=== PATIENT | female | born 1970 | race Caucasian/White ===

== ENCOUNTER → 2016-09-03 | Outpatient (CLI) | payer OTHER ==
[2015-05-18 14:25] VITALS: BP 140/92
--- NOTE | 2016-09-03 14:04 | CARD ---
APPROVED REPORT INDICATION Dyspnea Reason : Patient complained of pain PROCEDURE The patient underwent an Exercise Stress Test using the Stewart Protocol. Blood pressure, heart rate, a nd EKG were monitored. An Echocardiogram was performed by noc technician in four stages in quad fashion. At peak stress four se lected images were obtained and placed side by side with resting images for comparison. STRESS ECHO FINDINGS The resting Echocardiogram showed normal left ventricular contractility with an estimated Ejection Fr action of about 60 %. Normal augmentation of myocardial wall segments using a 16 segment model. Test Type: Exercise Stress Nurse/Tech: Paige Horton R.N. Test Indications: Palpitations Cardiac History and Allergies: SEE EMR Medications: SEE EMR Medical History: SEE EMR Resting ECG: SR Resting Heart Rate: 92 bpm Resting Blood Pressure: 134/93mmHg Pretest Chest Pain: No chest pain Nurse/Tech Notes S1S2, lungs CTA, denied chest pain or SOA. Consent: The procedure was explained to the patient in lay terms. Informed consent was witnessed. Sixto eout was entered into [employer]. History and Stress Test performed by Paige Horton R.N. Stress Symptoms SOA. POST EXERCISE Reason for Termination: Reached target heart rate Target HR: 145 Max HR: 169 bpm 99% of Maximum Predicted HR: 172 bpm Exercise duration: 5:31 min:sec, 2 Stage Exercise capacity: 7.0METs Max Blood Pressure: 184/88mmHg Blood Pressure response to exercise: Abnormal blood pressure response during stress.Normal blood pres sure response during stress. Heart Rate response to exercise: Normal Chest Pain: No. Arrhythmia: No. ST Change: No. INTERPRETATION Stress EKG Conclusion: No acute changes or PVC's noted. RESTING ECG Rhythm: Sinus Conduction: Normal Arrhythmias: None Repolarization: Normal STRESS ECG Rhythm: Sinus Tachycardia Conduction: Normal Stress EKG shows no significant changes. Preliminary Notification Critical Value: No <Conclusion> The left ventricle is normal in size and wall thickness in both the rest and stress images.
== END | disposition home or self-care (01) ==
LOC: ECHO 10:57
PROVIDERS: ATTEND Internal Medicine Cardiovascular Disease
DX: R00.2 Palpitations (principal); R06.00 Dyspnea, unspecified
CPT/HCPCS: 93017; 93350

== ENCOUNTER 2018-03-05 16:20 | Inpatient (IN) | payer BC, OTHER ==
[~2018-03-05] VITALS: Ht 165.1 cm; Wt 97.5 kg
[2018-03-05] MEDS ORDERED: ONDANSETRON PF 4 MG/2 ML VIAL. IV ONE (16:30)
[2018-03-05] MEDS ORDERED: MORPHINE SULFATE 4 MG/ML VIAL. IV ONE ×2 (16:30→17:15)
--- NOTE | 2018-03-05 16:42 | PHYS DOC ---
Past Medical History Past Medical History: Hypertension Past Surgical History: Appendectomy, Colectomy, Gastric Bypass, Hysterectomy Drug Use: None Adult General Chief Complaint Chief Complaint: UPPER EXTREMITY INJURY HPI HPI Patient is a 47 year old female whom presents to the ED complaining of right arm injury 4 hours ago. 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 Describes the pain as sharp. Rates the pain as 9 out of 10. Denies head/neck injury, LOC, vision changes, nausea/ vomiting, chest pain, shortness of breath, symptoms prior to fall or use of blood thinners. Review of Systems Review of Systems Constitutional: Denies fever or chills [] Eyes: Denies change in visual acuity, redness, or eye pain [] HENT: Denies nasal congestion or sore throat [] Respiratory: Denies cough or shortness of breath [] Cardiovascular: No additional information not addressed in HPI [] GI: Denies abdominal pain, nausea, vomiting, bloody stools or diarrhea [] : Denies dysuria or hematuria [] Musculoskeletal: Complains of right upper arm pain. Denies back pain. Joint pain [] Integument: Denies rash or skin lesions [] Neurologic: Denies headache, focal weakness or sensory changes [] All other systems were reviewed and found to be within normal limits, except as documented in this note. Current Medications Current Medications Current Medications Medications (Trade) Dose Ordered Sig/[facility] Start Time Stop Time Status Last Admin Dose Admin Morphine Sulfate (Morphine Sulfate) 4 mg 1X ONCE 03/05/18 17:15 03/05/18 17:16 DC 03/05/18 17:15 4 MG Ondansetron HCl (Zofran) 4 mg 1X ONCE 03/05/18 16:30 03/05/18 16:31 DC 03/05/18 16:49 4 MG Allergies Allergies Allergies Coded Allergies Type Severity Reaction Last Updated Verified bee venom protein (honey bee) Allergy Intermediate 03/05/18 No lisinopril Allergy Intermediate 05/18/15 Yes meperidine Allergy Intermediate 05/18/15 Yes Physical Exam Physical Exam Constitutional: Well developed, well nourished, no acute distress, non-toxic appearance. [] HENT: Normocephalic, atraumatic Neck: Normal range of motion, no tenderness, supple, no stridor. [] Cardiovascular:Heart rate regular rhythm, no murmur [] Lungs & Thorax: Bilateral breath sounds clear to auscultation [] Abdomen: Bowel sounds normal, soft, no tenderness, no masses, no pulsatile masses. [] Skin: Warm, dry, no erythema, no rash. [] Back: No tenderness, no CVA tenderness. [] Extremities: mild right proximal humerus tenderness, no cyanosis, no clubbing, NV intact, no edema. [] Neurologic: Alert and oriented X 3, normal motor function, normal sensory function, no focal deficits noted. [] Psychologic: Affect normal, judgement normal, mood normal. [] Current Patient Data Vital Signs Vital Signs Date Time Temp Pulse Resp B/P (MAP) Pulse Ox O2 Delivery O2 Flow Rate FiO2 03/05/18 17:30 98 20 166/92 (116) 97 Room Air 03/05/18 16:30 97.8 97.8 Lab Values Laboratory Tests Test 03/05/18 16:36 White Blood Count 13.0 x10^3/uL (4.0-11.0) H Red Blood Count 4.58 x10^6/uL (3.50-5.40) Hemoglobin 9.0 g/dL (12.0-15.5) L Hematocrit 29.4 % (36.0-47.0) L Mean Corpuscular Volume 64 fL (79-100) L Mean Corpuscular Hemoglobin 20 pg (25-35) L Mean Corpuscular Hemoglobin Concent 31 g/dL (31-37) Red Cell Distribution Width 20.2 % (11.5-14.5) H Platelet Count 553 x10^3/uL (140-400) H Neutrophils (%) (Auto) 82 % (31-73) H Lymphocytes (%) (Auto) 12 % (24-48) L Monocytes (%) (Auto) 5 % (0-9) Eosinophils (%) (Auto) 0 % (0-3) Basophils (%) (Auto) 1 % (0-3) Neutrophils # (Auto) 10.6 x10^3uL (1.8-7.7) H Lymphocytes # (Auto) 1.6 x10^3/uL (1.0-4.8) Monocytes # (Auto) 0.7 x10^3/uL (0.0-1.1) Eosinophils # (Auto) 0.0 x10^3/uL (0.0-0.7) Basophils # (Auto) 0.1 x10^3/uL (0.0-0.2) Platelet Estimate Increased (ADEQUATE) Polychromasia Slight Hypochromasia Mod Anisocytosis Mod Microcytosis Marked Sodium Level 133 mmol/L (136-145) L Potassium Level 3.6 mmol/L (3.5-5.1) Chloride Level 98 mmol/L (98-107) Carbon Dioxide Level 21 mmol/L (21-32) Anion Gap 14 (6-14) Blood Urea Nitrogen 7 mg/dL (7-20) Creatinine 0.6 mg/dL (0.6-1.0) Estimated GFR (Cockcroft-Gault) 106.3 Glucose Level 122 mg/dL (70-99) H Calcium Level 8.9 mg/dL (8.5-10.1) Iron Level 13 ug/dL (50-170) L Total Iron Binding Capacity 632 ug/dL (250-450) H Iron Saturation 2 % (15-34) L Laboratory Tests 03/05/18 16:36 Laboratory Tests 03/05/18 16:36 EKG EKG [] Radiology/Procedures Radiology/Procedures [] Course & Med Decision Making Course & Med Decision Making Pertinent Labs and Imaging studies reviewed. (See chart for details) []Discussed case with on-call ortho, Dr. Judge. States to place patient in a sling. No reduction required. Will see tomorrow. Keep patient NPO. Discussed case with hospitalist, Dr. Hernandez. Agrees to admission and further management of patient. Patient stable for admission. Patient placed in sling. NV intact post placement. normal sensation. FROM on wrist and hand. 2 + pulses. less than 2 second capillary refill. Dragon Disclaimer Dragon Disclaimer This electronic medical record was generated, in whole or in part, using a voice recognition dictation system. Departure Departure Impression: Primary Impression: Humerus fracture Disposition: 09 ADMITTED INPATIENT Admitting Physician: Saman Rosales Condition: STABLE Referrals: NON,STAFF (PCP) RACHEL REYNOLDS Mar 05, 2018 16:42
[2018-03-05 16:46] LABS: BASO # 0.1 x10^3/uL (0.0-0.2); BASO % 1 % (0-3); EOS % 0 % (0-3); HEMATOCRIT 29.4 % (36.0-47.0); LYMPH # 1.6 x10^3/uL (1.0-4.8); LYMPH % 12 % (24-48); MEAN CORPUSCULAR HEMOGLOBIN 20 pg (25-35); MEAN CORPUSCULAR HGB CONC 31 g/dL (31-37); MEAN CORPUSCULAR VOLUME 64 fL (79-100); MONO # 0.7 x10^3/uL (0.0-1.1); MONO % 5 % (0-9); NEUT # 10.6 x10^3uL (1.8-7.7); NEUT % 82 % (31-73); PLATELET COUNT 553 x10^3/uL (140-400); RED BLOOD COUNT 4.58 x10^6/uL (3.50-5.40); RED CELL DISTRIBUTION WIDTH 20.2 % (11.5-14.5)
[2018-03-05 17:05] LABS: CALCIUM 8.9 mg/dL (8.5-10.1); CREATININE 0.6 mg/dL (0.6-1.0); GFR 106.3; POTASSIUM 3.6 mmol/L (3.5-5.1)
[2018-03-05 17:40] LABS: PLT ESTIMATE INCREASED (ADEQUATE)
[2018-03-05 17:41] LABS: ANISOCYTOSIS MOD; HYPOCHROMIA MOD; MICROCYTOSIS MARKED; POLYCHROMASIA SLIGHT
[2018-03-05] MEDS ORDERED: ACETAMINOPHEN 325 MG TABLET. PO PRN (18:00)
[2018-03-05] MEDS ORDERED: ONDANSETRON PF 4 MG/2 ML VIAL. IV PRN (18:00)
--- NOTE | 2018-03-05 18:12 | PDOC1 ---
History and Physical Date of Admission Date of Admission DATE: 03/05/18 TIME: 18:11 Identification/Chief Complaint Chief Complaint cc 47 year old female whom presents to the ED complaining of right arm injury 4 hours [employer]. 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 Describes the pain as sharp. pain as 9 out of 10. Denies head/neck injury, LOC, vision changes Past Medical History Cardiovascular: HTN Pulmonary: No pertinent hx Renal/: No pertinent hx Dermatology: No pertinent hx Past Surgical History Past Surgical History: Hysterectomy Family History Family History: High Cholestrol, Hypertension Family History: Parent Social History Smoke: <1 pack per day ALCOHOL: occassional Drugs: None Current Problem List Problem List Problems Medical Problems: (1) Humerus fracture Status: Acute Current Medications Current Medications Current Medications Morphine Sulfate (Morphine Sulfate) 4 mg 1X ONCE IV Last administered on at 16:49; Start 03/05/18 at 16:30; Stop 03/05/18 at 16:31; Status DC Ondansetron HCl (Zofran) 4 mg 1X ONCE IV Last administered on 03/05/18at 16:49 ; Start 03/05/18 at 16:30; Stop 03/05/18 at 16:31; Status DC Morphine Sulfate (Morphine Sulfate) 4 mg 1X ONCE IV Last administered on at 17:15; Start 03/05/18 at 17:15; Stop 03/05/18 at 17:16; Status DC Ondansetron HCl (Zofran) 4 mg PRN Q8HRS PRN IV NAUSEA/VOMITING; Start 03/05/18 at 18:00; Stop 03/06/18 at 17:59 Morphine Sulfate (Morphine Sulfate) 4 mg PRN Q2HR PRN IV PAIN; Start 03/05/18 at 18:00; Stop 03/06/18 at 17:59 Acetaminophen (Tylenol) 650 mg PRN Q4HRS PRN PO FEVER; Start 03/05/18 at 18:00 ; Stop 03/06/18 at 17:59 Allergies Allergies: Coded Allergies: bee venom protein (honey bee) (Unverified Allergy, Intermediate, 03/05/18) lisinopril (Verified Allergy, Intermediate, 05/18/15) meperidine (Verified Allergy, Intermediate, 05/18/15) ROS Review of System Review of Systems Review of Systems Constitutional: Denies fever or chills [] Eyes: Denies change in visual acuity, redness, or eye pain [] HENT: Denies nasal congestion or sore throat [] Respiratory: Denies cough or shortness of breath [] Cardiovascular: No additional information not addressed in HPI [] GI: Denies abdominal pain, nausea, vomiting, bloody stools or diarrhea [] : Denies dysuria or hematuria [] Musculoskeletal: Complains of right upper arm pain. Denies back pain. POS RIGHT SHOULDER Joint pain [] Integument: Denies rash or skin lesions [] Neurologic: Denies headache, focal weakness or sensory changes [] 14 PT systems were reviewed and found to be within normal limits, except as documented General: No: Chills, Night Sweats, Fatigue, Malaise, Appetite, Other Eyes: No Blurry vision, No Decreased vision, No Double vision, No Dry eyes, No Excessive tearing, No Eye Pain, No Itchy Eyes, No Loss of vision, No Photophobia , No Scotomata, No Uses contacts, No Uses glasses, No Other Skin: No Dry Skin, No Eczema, No Hair Changes, No Lumps, No Mole Changes, No Mottling, No Nail Changes, No Pruritus, No Rash, No Skin Lesion Changes, No Other, No Acne Physical Exam Physical Exam Physical Exam Physical Exam Constitutional: Well developed, well nourished, no acute distress, non-toxic appearance. [] HENT: Normocephalic, atraumatic Neck: Normal range of motion, no tenderness, supple, no stridor. [] Cardiovascular:Heart rate regular rhythm, no murmur [] Lungs & Thorax: Bilateral breath sounds clear to auscultation [] Abdomen: Bowel sounds normal, soft, no tenderness, no masses, no pulsatile masses. [] Skin: Warm, dry, no erythema, no rash. [] Back: No tenderness, no CVA tenderness. [] Extremities: MODERATE right proximal humerus tenderness, no cyanosis, no clubbing, NV intact, no edema. [] Neurologic: Alert and oriented X 3, normal motor function, normal sensory function, no focal deficits noted. [] Psychologic: Affect normal, judgement normal, mood normal. [] General: Oriented X3, Cooperative Lungs: Clear to auscultation, Normal air movement Breasts: Not examined Extremities: Other (very tender right upper shoulder) Neuro: Cranial nerves 3-12 NL Psych/Mental Status: Mental status NL, Mood NL Vitals Vitals Vital Signs Date Time Temp Pulse Resp B/P (MAP) Pulse Ox O2 Delivery O2 Flow Rate FiO2 03/05/18 17:15 21 95 Room Air 03/05/18 16:30 97.8 107 172/104 (126) 97.8 Labs Labs Laboratory Tests Test 03/05/18 16:36 White Blood Count 13.0 x10^3/uL (4.0-11.0) Red Blood Count 4.58 x10^6/uL (3.50-5.40) Hemoglobin 9.0 g/dL (12.0-15.5) Hematocrit 29.4 % (36.0-47.0) Mean Corpuscular Volume 64 fL (79-100) Mean Corpuscular Hemoglobin 20 pg (25-35) Mean Corpuscular Hemoglobin Concent 31 g/dL (31-37) Red Cell Distribution Width 20.2 % (11.5-14.5) Platelet Count 553 x10^3/uL (140-400) Neutrophils (%) (Auto) 82 % (31-73) Lymphocytes (%) (Auto) 12 % (24-48) Monocytes (%) (Auto) 5 % (0-9) Eosinophils (%) (Auto) 0 % (0-3) Basophils (%) (Auto) 1 % (0-3) Neutrophils # (Auto) 10.6 x10^3uL (1.8-7.7) Lymphocytes # (Auto) 1.6 x10^3/uL (1.0-4.8) Monocytes # (Auto) 0.7 x10^3/uL (0.0-1.1) Eosinophils # (Auto) 0.0 x10^3/uL (0.0-0.7) Basophils # (Auto) 0.1 x10^3/uL (0.0-0.2) Platelet Estimate Increased (ADEQUATE) Polychromasia Slight Hypochromasia Mod Anisocytosis Mod Microcytosis Marked Sodium Level 133 mmol/L (136-145) Potassium Level 3.6 mmol/L (3.5-5.1) Chloride Level 98 mmol/L (98-107) Carbon Dioxide Level 21 mmol/L (21-32) Anion Gap 14 (6-14) Blood Urea Nitrogen 7 mg/dL (7-20) Creatinine 0.6 mg/dL (0.6-1.0) Estimated GFR (Cockcroft-Gault) 106.3 Glucose Level 122 mg/dL (70-99) Calcium Level 8.9 mg/dL (8.5-10.1) Laboratory Tests Test 03/05/18 16:36 White Blood Count 13.0 x10^3/uL (4.0-11.0) Red Blood Count 4.58 x10^6/uL (3.50-5.40) Hemoglobin 9.0 g/dL (12.0-15.5) Hematocrit 29.4 % (36.0-47.0) Mean Corpuscular Volume 64 fL (79-100) Mean Corpuscular Hemoglobin 20 pg (25-35) Mean Corpuscular Hemoglobin Concent 31 g/dL (31-37) Red Cell Distribution Width 20.2 % (11.5-14.5) Platelet Count 553 x10^3/uL (140-400) Neutrophils (%) (Auto) 82 % (31-73) Lymphocytes (%) (Auto) 12 % (24-48) Monocytes (%) (Auto) 5 % (0-9) Eosinophils (%) (Auto) 0 % (0-3) Basophils (%) (Auto) 1 % (0-3) Neutrophils # (Auto) 10.6 x10^3uL (1.8-7.7) Lymphocytes # (Auto) 1.6 x10^3/uL (1.0-4.8) Monocytes # (Auto) 0.7 x10^3/uL (0.0-1.1) Eosinophils # (Auto) 0.0 x10^3/uL (0.0-0.7) Basophils # (Auto) 0.1 x10^3/uL (0.0-0.2) Platelet Estimate Increased (ADEQUATE) Polychromasia Slight Hypochromasia Mod Anisocytosis Mod Microcytosis Marked Sodium Level 133 mmol/L (136-145) Potassium Level 3.6 mmol/L (3.5-5.1) Chloride Level 98 mmol/L (98-107) Carbon Dioxide Level 21 mmol/L (21-32) Anion Gap 14 (6-14) Blood Urea Nitrogen 7 mg/dL (7-20) Creatinine 0.6 mg/dL (0.6-1.0) Estimated GFR (Cockcroft-Gault) 106.3 Glucose Level 122 mg/dL (70-99) Calcium Level 8.9 mg/dL (8.5-10.1) VTE Prophylaxis Ordered VTE Prophylaxis Devices: No VTE Pharmacological Prophylaxi: Yes Assessment/Plan Assessment/Plan ion: Impression: RIGHT Mechanical fall with Humerus fracture htn obesity Tobacco abuse microcytic anemia, likely fe def plan ortho for fixation iv pain control bp control NPO P MN lovenox dvt prophylaxis iron panel feso4 300mg po bid toprol xl 25mg po x 1 iv fluid support KRISTEN WAN MD Mar 05, 2018 18:12
[2018-03-05] MEDS ORDERED: METOPROLOL SUCC 24HR ER 25 MG TAB.ER.24H. PO ONE (18:30)
[2018-03-05] MEDS ORDERED: IV NORMAL SALINE 1000ML BAG 1,000 ML IV ONE (18:45)
[2018-03-05] MEDS: MORPHINE SULFATE 4 MG/ML VIAL. IV PRN ×2 (19:01→21:18)
[2018-03-05 20:00] VITALS: BP 152/105
[2018-03-05] MEDS ORDERED: AMLO10TA2 PO (22:14)
[2018-03-05] MEDS ORDERED: FURO-68 PO (22:14)
[2018-03-05] MEDS ORDERED: BUPR100T7 PO (22:15)
[2018-03-05] MEDS ORDERED: BUPR150T11 PO (22:17)
[2018-03-05] MEDS: amLODIPine BESYLATE 10 MG TABLET PO SCH (22:58)
[2018-03-05 23:00] VITALS: BP 156/88
[2018-03-06] VITALS (10 sets, daily range): BP systolic 123–151; BP diastolic 71–102
[2018-03-06] MEDS: MORPHINE SULFATE 4 MG/ML VIAL. IV PRN ×7 (00:04→21:00)
--- NOTE | 2018-03-06 07:52 | RAD ---
EXAM: 1. 2 views right shoulder 2. 2 views right humerus 3. 2 views right elbow DATE: 03/05/2018 5:01 PM INDICATION: RIGHT UPPER EXTREMITY PAIN AFTER FALL COMPARISON: No Prior FINDINGS/ impression: Right shoulder: There is a comminuted fracture of the right humeral head including fracture planes extending to the greater tuberosity and surgical neck. There is inferior subluxation of the humeral head possibly from hemarthrosis. Right humerus: No definite distal humeral fracture. Right elbow: No elbow joint effusion. No evidence for acute fracture or dislocation. Electronically signed by: Wong Williamson MD (03/06/2018 7:48 AM) [facility]
[2018-03-06] MEDS ORDERED: BUPIVACAINE-EPI 0.25%-1:200000 50 ML VIAL. ONE (07:54)
[2018-03-06] MEDS ORDERED: BUPIVACAINE 0.25% 50 ML VIAL. ONE (07:54)
[2018-03-06] MEDS ORDERED: LIDOCAINE 1% PF 30 ML VIAL. ONE (07:55)
[2018-03-06 07:59] LABS: BASO # 0.1 x10^3/uL (0.0-0.2); BASO % 1 % (0-3); EOS # 0.1 x10^3/uL (0.0-0.7); EOS % 1 % (0-3); HEMATOCRIT 27.1 % (36.0-47.0); HEMOGLOBIN 8.2 g/dL (12.0-15.5); LYMPH # 1.5 x10^3/uL (1.0-4.8); LYMPH % 24 % (24-48); MEAN CORPUSCULAR HEMOGLOBIN 20 pg (25-35); MEAN CORPUSCULAR HGB CONC 30 g/dL (31-37); MEAN CORPUSCULAR VOLUME 66 fL (79-100); MONO # 0.8 x10^3/uL (0.0-1.1); MONO % 13 % (0-9); NEUT # 3.9 x10^3uL (1.8-7.7); NEUT % 61 % (31-73); PLATELET COUNT 396 x10^3/uL (140-400); RED BLOOD COUNT 4.13 x10^6/uL (3.50-5.40); RED CELL DISTRIBUTION WIDTH 20.3 % (11.5-14.5); WHITE BLOOD COUNT 6.3 x10^3/uL (4.0-11.0)
[2018-03-06] MEDS: IRON POLYSACCHARIDE COMPLEX 150 MG CAPSULE PO SCH (08:02)
[2018-03-06] MEDS: amLODIPine BESYLATE 10 MG TABLET PO SCH (08:03)
[2018-03-06] MEDS: FUROSEMIDE 20 MG TABLET PO SCH (08:03)
[2018-03-06 08:14] LABS: ALBUMIN/GLOBULIN RATIO 0.8 (1.0-1.7); CALCIUM 8.5 mg/dL (8.5-10.1); CREATININE 0.5 mg/dL (0.6-1.0); GFR 131.1; POTASSIUM 3.3 mmol/L (3.5-5.1); TOTAL BILIRUBIN 0.7 mg/dL (0.2-1.0); TOTAL PROTEIN 6.7 g/dL (6.4-8.2)
[2018-03-06] MEDS ORDERED: IV RINGERS,LACTATED 1000ML 1,000 ML IV SCH (08:39)
[2018-03-06] MEDS ORDERED: MORPHINE SULFATE 2 MG/ML VIAL. IV PRN (08:45)
[2018-03-06] MEDS ORDERED: PROCHLORPERAZINE 10 MG/2 ML VIAL. IV PRN (08:45)
[2018-03-06] MEDS ORDERED: ONDANSETRON PF 4 MG/2 ML VIAL. IV PRN (08:45)
[2018-03-06] MEDS ORDERED: HYDROmorphone 2 MG/ML VIAL IV PRN (08:45)
[2018-03-06] MEDS ORDERED: LIDOCAINE 1% PF 2 ML VIAL. ID PRN (08:45)
--- NOTE | 2018-03-06 09:09 | PDOC2 ---
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 She noted immediate pain and presented to the emergency department. She was admitted for care for her right proximal humerus fracture-dislocation she was discovered to have. She feels pain anteriorly and laterally, it is worse with any attempted movement. It is a little bit better with the pain medicines. She was given a sling in the emergency department. She denies any pain in her wrist or elbow on the right side. No prior history of shoulder palms. She denies any abnormal sensation in her hand. Past Medical History Cardiovascular: HTN Pulmonary: No pertinent hx Renal/: No pertinent hx Dermatology: No pertinent hx Past Surgical History Past Surgical History: Hysterectomy Family History Family History: High Cholestrol, Hypertension Social History Social History: Parent <1 pack per day ALCOHOL: occassional Drugs: None Current Problem List Problem List Problems Medical Problems: (1) Humerus fracture Status: Acute Current Medications Current Medications Current Medications Morphine Sulfate (Morphine Sulfate) 4 mg 1X ONCE IV Last administered on at 16:49; Start 03/05/18 at 16:30; Stop 03/05/18 at 16:31; Status DC Ondansetron HCl (Zofran) 4 mg 1X ONCE IV Last administered on 03/05/18at 16:49 ; Start 03/05/18 at 16:30; Stop 03/05/18 at 16:31; Status DC Morphine Sulfate (Morphine Sulfate) 4 mg 1X ONCE IV Last administered on at 17:15; Start 03/05/18 at 17:15; Stop 03/05/18 at 17:16; Status DC Ondansetron HCl (Zofran) 4 mg PRN Q8HRS PRN IV NAUSEA/VOMITING; Start 03/05/18 at 18:00; Stop 03/06/18 at 17:59 Morphine Sulfate (Morphine Sulfate) 4 mg PRN Q2HR PRN IV PAIN Last administered on 03/06/18at 08:03; Start 03/05/18 at 18:00; Stop 03/06/18 at 17:59 Acetaminophen (Tylenol) 650 mg PRN Q4HRS PRN PO FEVER; Start 03/05/18 at 18:00 ; Stop 03/06/18 at 17:59 Metoprolol Succinate (Toprol Xl) 25 mg 1X ONCE PO Last administered on at 19:04; Start 03/05/18 at 18:30; Stop 03/05/18 at 18:38; Status DC Sodium Chloride 1,000 ml @ 100 mls/hr 1X ONCE IV Last administered on at 21:37; Start 03/05/18 at 18:45; Stop 03/06/18 at 04:44; Status DC Polysaccharide Iron Complex (Niferex 150) 150 mg DAILY PO Last administered on 03/06/18at 08:02; Start 03/06/18 at 09:00 Amlodipine Besylate (Norvasc) 10 mg DAILY PO Last administered on 03/06/18at 08: 03; Start 03/05/18 at 23:00 Furosemide (Lasix) 20 mg DAILY PO Last administered on 03/06/18at 08:03; Start 03/06/18 at 09:00 Ondansetron HCl (Zofran) 4 mg PRN Q6HRS PRN IV NAUSEA/VOMITING; Start 03/06/18 at 08:45; Stop 03/07/18 at 08:44 Morphine Sulfate (Morphine Sulfate) 1 mg PRN Q10MIN PRN IV SEVERE PAIN; Start 03/06/18 at 08:45; Stop 03/07/18 at 08:44 Ringer's Solution 1,000 ml @ 30 mls/hr Q24H IV ; Start 03/06/18 at 08:39; Stop 03/06/18 at 20:38 Lidocaine HCl (Xylocaine-Mpf 1% 2ml Vial) 2 ml 1X PRN PRN ID IV START; Start at 08:45; Stop 03/07/18 at 08:44 Hydromorphone HCl (Dilaudid) 0.5 mg PRN Q10MIN PRN IV SEV PAIN, Second choice; Start 03/06/18 at 08:45; Stop 03/07/18 at 08:44 Prochlorperazine Edisylate (Compazine) 5 mg PACU PRN PRN IV NAUSEA, MRX1; Start 03/06/18 at 08:45; Stop 03/07/18 at 08:44 Bupivacaine HCl/ Epinephrine Bitart (Marcaine-Epi 0.25%-1:[id number]) 50 ml STK-MED ONCE .ROUTE ; Start 03/06/18 at 07:54; Stop 03/06/18 at 08:56; Status DC Bupivacaine HCl (Marcaine 0.25%) 50 ml STK-MED ONCE .ROUTE ; Start 03/06/18 at 07:54; Stop 03/06/18 at 08:56; Status DC Lidocaine HCl (Xylocaine 1% Pf 30ml Vial) 30 ml STK-MED ONCE .ROUTE ; Start at 07:55; Stop 03/06/18 at 08:56; Status DC Active Scripts Active Reported Bupropion Hcl Sr (Bupropion Hcl) 150 Mg Tablet.er 150 Mg PO Wellbutrin Sr (Bupropion Hcl) 100 Mg Tablet.er Unknown Dose PO DAILY Amlodipine Besylate 10 Mg Tablet 10 Mg PO DAILY Lasix (Furosemide) 40 Mg Tablet 40 Mg PO DAILY Allergies Allergies: Coded Allergies: bee venom protein (honey bee) (Unverified Allergy, Intermediate, 03/05/18) lisinopril (Verified Allergy, Intermediate, 05/18/15) meperidine (Verified Allergy, Intermediate, 05/18/15) ROS General: No: Chills, Night Sweats, Fatigue, Malaise, Appetite, Other PSYCHOLOGICAL ROS: No: Anxiety, Behavioral Disorder, Concentration difficultie , Decreased libido, Depression, Disorientation, Hallucinations, Hostility, Irritablity, Memory difficulties, Mood Swings, Obsessive thoughts, Physical abuse, Sexual abuse, Sleep disturbances, Suicidal ideation, Other Eyes: No Blurry vision, No Decreased vision, No Double vision, No Dry eyes, No Excessive tearing, No Eye Pain, No Itchy Eyes, No Loss of vision, No Photophobia , No Scotomata, No Uses contacts, No Uses glasses, No Other HEENT: No: Heacaches, Visual Changes, Hearing change, Nasal congestion, Nasal discharge, Oral lesions, Sinus pain, Sore Throat, Epistaxis, Sneezing, Snoring, Tinnitus, Vertigo, Vocal changes, Other ALLERGY AND IMMUNOLOGY: No: Hives, Insect Bite Sensitivity, Itchy/Watery Eyes, Nasal Congestion, Post Nasal Drip, Seasonal Allergies, Other Hematological and Lymphatic: No: Bleeding Problems, Blood Clots, Blood Transfusions, Brusing, Night Sweats, Pallor, Swollen Lymph Nodes, Other ENDOCRINE: No: Breast Changes, Galactorrhea, Hair Pattern Changes, Hot Flashes , Malaise/lethargy, Mood Swings, Palpitations, Polydipsia/polyuria, Skin Changes , Temperature Intolerance, Unexpected Weight Changes, Other Respiratory: No: Cough, Hemoptysis, Orthopnea, Pleuritic Pain, Shortness of breath, SOB with excertion, Sputum Changes, Stridor, Tachypnea, Wheezing, Other Cardiovascular: No Chest Pain, No Palpitations, No Orthopnea, No Paroxysmal Noc. Dyspnea, No Edema, No Lt Headedness, No Other Gastrointestinal: No Nausea, No Vomiting, No Abdominal Pain, No Diarrhea, No Constipation, No Melena, No Hematochezia, No Other Genitourinary: No Dysuria, No Frequency, No Incontinence, No Hematuria, No Retention, No Discharge, No Urgency, No Pain, No Flank Pain, No Other, No , No , No , No , No , No , No Musculoskeletal: Yes Joint Pain Neurological: No Behavorial Changes, No Bowel/Bladder ControlChng, No Confusion , No Dizziness, No Gait Disturbance, No Headaches, No Impaired Coord/balance, No Memory Loss, No Numbness/Tingling, No Seizures, No Speech Problems, No Tremors, No Visual Changes, No Weakness, No Other Skin: No Dry Skin, No Eczema, No Hair Changes, No Lumps, No Mole Changes, No Mottling, No Nail Changes, No Pruritus, No Rash, No Skin Lesion Changes, No Other, No Acne Physical Exam General: Alert, Oriented X3 HEENT: Atraumatic, EOMI Lungs: Other (respirations are unlabored with symmetric chest rise) Heart: Regular rate Abdomen: Soft, No tenderness Extremities: No edema, Normal pulses Neuro: Normal speech, Strength at 5/5 X4 ext, Sensation intact Psych/Mental Status: Mental status NL, Mood NL MUSCULOSKELETAL: Other (she has a mild fullness around her right shoulder girdle. Right upper extremity is in a sling. Motor and sensation intact median, radial, ulnar, sensation intact to axillary nerve, unable to assess her axillary motor function secondary to pain and guarding.) Vitals VITALS Vital Signs Date Time Temp Pulse Resp B/P (MAP) Pulse Ox O2 Delivery O2 Flow Rate FiO2 03/06/18 08:03 91 151/88 03/06/18 08:03 Room Air 03/06/18 07:00 97.7 16 92 97.7 Labs Labs Laboratory Tests Test 03/05/18 16:36 03/06/18 06:25 White Blood Count 13.0 x10^3/uL (4.0-11.0) 6.3 x10^3/uL (4.0-11.0) Red Blood Count 4.58 x10^6/uL (3.50-5.40) 4.13 x10^6/uL (3.50-5.40) Hemoglobin 9.0 g/dL (12.0-15.5) 8.2 g/dL (12.0-15.5) Hematocrit 29.4 % (36.0-47.0) 27.1 % (36.0-47.0) Mean Corpuscular Volume 64 fL (79-100) 66 fL (79-100) Mean Corpuscular Hemoglobin 20 pg (25-35) 20 pg (25-35) Mean Corpuscular Hemoglobin Concent 31 g/dL (31-37) 30 g/dL (31-37) Red Cell Distribution Width 20.2 % (11.5-14.5) 20.3 % (11.5-14.5) Platelet Count 553 x10^3/uL (140-400) 396 x10^3/uL (140-400) Neutrophils (%) (Auto) 82 % (31-73) 61 % (31-73) Lymphocytes (%) (Auto) 12 % (24-48) 24 % (24-48) Monocytes (%) (Auto) 5 % (0-9) 13 % (0-9) Eosinophils (%) (Auto) 0 % (0-3) 1 % (0-3) Basophils (%) (Auto) 1 % (0-3) 1 % (0-3) Neutrophils # (Auto) 10.6 x10^3uL (1.8-7.7) 3.9 x10^3uL (1.8-7.7) Lymphocytes # (Auto) 1.6 x10^3/uL (1.0-4.8) 1.5 x10^3/uL (1.0-4.8) Monocytes # (Auto) 0.7 x10^3/uL (0.0-1.1) 0.8 x10^3/uL (0.0-1.1) Eosinophils # (Auto) 0.0 x10^3/uL (0.0-0.7) 0.1 x10^3/uL (0.0-0.7) Basophils # (Auto) 0.1 x10^3/uL (0.0-0.2) 0.1 x10^3/uL (0.0-0.2) Platelet Estimate Increased (ADEQUATE) Polychromasia Slight Hypochromasia Mod Anisocytosis Mod Microcytosis Marked Sodium Level 133 mmol/L (136-145) 136 mmol/L (136-145) Potassium Level 3.6 mmol/L (3.5-5.1) 3.3 mmol/L (3.5-5.1) Chloride Level 98 mmol/L (98-107) 102 mmol/L (98-107) Carbon Dioxide Level 21 mmol/L (21-32) 29 mmol/L (21-32) Anion Gap 14 (6-14) 5 (6-14) Blood Urea Nitrogen 7 mg/dL (7-20) 7 mg/dL (7-20) Creatinine 0.6 mg/dL (0.6-1.0) 0.5 mg/dL (0.6-1.0) Estimated GFR (Cockcroft-Gault) 106.3 131.1 Glucose Level 122 mg/dL (70-99) 112 mg/dL (70-99) Calcium Level 8.9 mg/dL (8.5-10.1) 8.5 mg/dL (8.5-10.1) Iron Level 13 ug/dL (50-170) Total Iron Binding Capacity 632 ug/dL (250-450) Iron Saturation 2 % (15-34) BUN/Creatinine Ratio 14 (6-20) Total Bilirubin 0.7 mg/dL (0.2-1.0) Aspartate Amino Transf (AST/SGOT) 208 U/L (15-37) Alanine Aminotransferase (ALT/SGPT) 112 U/L (14-59) Alkaline Phosphatase 201 U/L (46-116) Total Protein 6.7 g/dL (6.4-8.2) Albumin 3.0 g/dL (3.4-5.0) Albumin/Globulin Ratio 0.8 (1.0-1.7) Laboratory Tests Test 03/05/18 16:36 03/06/18 06:25 White Blood Count 13.0 x10^3/uL (4.0-11.0) 6.3 x10^3/uL (4.0-11.0) Red Blood Count 4.58 x10^6/uL (3.50-5.40) 4.13 x10^6/uL (3.50-5.40) Hemoglobin 9.0 g/dL (12.0-15.5) 8.2 g/dL (12.0-15.5) Hematocrit 29.4 % (36.0-47.0) 27.1 % (36.0-47.0) Mean Corpuscular Volume 64 fL (79-100) 66 fL (79-100) Mean Corpuscular Hemoglobin 20 pg (25-35) 20 pg (25-35) Mean Corpuscular Hemoglobin Concent 31 g/dL (31-37) 30 g/dL (31-37) Red Cell Distribution Width 20.2 % (11.5-14.5) 20.3 % (11.5-14.5) Platelet Count 553 x10^3/uL (140-400) 396 x10^3/uL (140-400) Neutrophils (%) (Auto) 82 % (31-73) 61 % (31-73) Lymphocytes (%) (Auto) 12 % (24-48) 24 % (24-48) Monocytes (%) (Auto) 5 % (0-9) 13 % (0-9) Eosinophils (%) (Auto) 0 % (0-3) 1 % (0-3) Basophils (%) (Auto) 1 % (0-3) 1 % (0-3) Neutrophils # (Auto) 10.6 x10^3uL (1.8-7.7) 3.9 x10^3uL (1.8-7.7) Lymphocytes # (Auto) 1.6 x10^3/uL (1.0-4.8) 1.5 x10^3/uL (1.0-4.8) Monocytes # (Auto) 0.7 x10^3/uL (0.0-1.1) 0.8 x10^3/uL (0.0-1.1) Eosinophils # (Auto) 0.0 x10^3/uL (0.0-0.7) 0.1 x10^3/uL (0.0-0.7) Basophils # (Auto) 0.1 x10^3/uL (0.0-0.2) 0.1 x10^3/uL (0.0-0.2) Platelet Estimate Increased (ADEQUATE) Polychromasia Slight Hypochromasia Mod Anisocytosis Mod Microcytosis Marked Sodium Level 133 mmol/L (136-145) 136 mmol/L (136-145) Potassium Level 3.6 mmol/L (3.5-5.1) 3.3 mmol/L (3.5-5.1) Chloride Level 98 mmol/L (98-107) 102 mmol/L (98-107) Carbon Dioxide Level 21 mmol/L (21-32) 29 mmol/L (21-32) Anion Gap 14 (6-14) 5 (6-14) Blood Urea Nitrogen 7 mg/dL (7-20) 7 mg/dL (7-20) Creatinine 0.6 mg/dL (0.6-1.0) 0.5 mg/dL (0.6-1.0) Estimated GFR (Cockcroft-Gault) 106.3 131.1 Glucose Level 122 mg/dL (70-99) 112 mg/dL (70-99) Calcium Level 8.9 mg/dL (8.5-10.1) 8.5 mg/dL (8.5-10.1) Iron Level 13 ug/dL (50-170) Total Iron Binding Capacity 632 ug/dL (250-450) Iron Saturation 2 % (15-34) BUN/Creatinine Ratio 14 (6-20) Total Bilirubin 0.7 mg/dL (0.2-1.0) Aspartate Amino Transf (AST/SGOT) 208 U/L (15-37) Alanine Aminotransferase (ALT/SGPT) 112 U/L (14-59) Alkaline Phosphatase 201 U/L (46-116) Total Protein 6.7 g/dL (6.4-8.2) Albumin 3.0 g/dL (3.4-5.0) Albumin/Globulin Ratio 0.8 (1.0-1.7) Images Images X-rays of her humerus, shoulder, elbow interpreted by myself. Reports reviewed. She has a comminuted right proximal humerus fracture dislocation. Assessment/Plan Assessment/Plan Right proximal humerus fracture dislocation. I did discuss the need for operative intervention. I think she is too young to consider any type of arthroplasty. Given the fracture pattern I think proceeding with ORIF with plate and screw fixation would be the most appropriate. I did discuss the risks , benefits, and alternatives and recommended surgery. In particular, I mentioned stiffness, loss of fixation, osteonecrosis, infection, possible nerve damage as well as others. We will plan on proceeding with surgery after a CAT scan is done to help with preoperative planning. Surgery likely early afternoon. KATHRYN GONZALEZ II, MD Mar 06, 2018 09:09
[2018-03-06] MEDS ORDERED: SCOPOLAMINE 1.5MG PATCH. TD ONE ×2 (11:26→11:30)
[2018-03-06] MEDS ORDERED: ROCURONIUM 50 MG/5 ML VIAL. ONE ×2 (11:39→13:21)
[2018-03-06] MEDS ORDERED: PROPOFOL 20 ML IV ONE ×2 (11:39→14:57)
[2018-03-06] MEDS ORDERED: LIDOCAINE 2% PF Vial for OR 5 ML VIAL. ONE (11:39)
[2018-03-06] MEDS ORDERED: MIDAZOLAM HCL/PF 2 MG/2 ML VIAL. ONE (11:40)
[2018-03-06] MEDS ORDERED: fentaNYL PF VIAL 100 MCG/2 ML VIAL ONE (11:40)
[2018-03-06] MEDS ORDERED: DEXAMETHASONE SOD PHOS 20 MG/5 ML VIAL. ONE (12:21)
[2018-03-06] MEDS ORDERED: diphenhydrAMINE 50 MG/ML VIAL ONE (12:21)
[2018-03-06] MEDS ORDERED: ONDANSETRON PF 4 MG/2 ML VIAL. ONE (12:21)
[2018-03-06] MEDS ORDERED: FAMOTIDINE 20 MG/2 ML VIAL ONE (12:21)
[2018-03-06] MEDS ORDERED: KETOROLAC 30 MG/ML VIAL. IV PRN (12:30)
[2018-03-06] MEDS ORDERED: MORPHINE SULFATE 5 MG, KETOROLAC 30MG VIAL 30 MG, ROPIVacaine 0.5% PF 60 ML, EPINEPHrin... INT ART ONE ×5 (12:30)
--- NOTE | 2018-03-06 12:30 | PDOC ---
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 Vitals Vitals Vital Signs Date Time Temp Pulse Resp B/P (MAP) Pulse Ox O2 Delivery O2 Flow Rate FiO2 03/06/18 11:00 98.0 95 18 175/97 94 Room Air 98.0 Physical Exam General: Alert, Oriented X3 Heart: Regular rate, Normal S1, Normal S2, No murmurs Abdomen: Soft, No tenderness Extremities: No edema, Normal pulses Labs LABS Laboratory Tests Test 03/05/18 16:36 03/06/18 06:25 White Blood Count 13.0 x10^3/uL (4.0-11.0) 6.3 x10^3/uL (4.0-11.0) Red Blood Count 4.58 x10^6/uL (3.50-5.40) 4.13 x10^6/uL (3.50-5.40) Hemoglobin 9.0 g/dL (12.0-15.5) 8.2 g/dL (12.0-15.5) Hematocrit 29.4 % (36.0-47.0) 27.1 % (36.0-47.0) Mean Corpuscular Volume 64 fL (79-100) 66 fL (79-100) Mean Corpuscular Hemoglobin 20 pg (25-35) 20 pg (25-35) Mean Corpuscular Hemoglobin Concent 31 g/dL (31-37) 30 g/dL (31-37) Red Cell Distribution Width 20.2 % (11.5-14.5) 20.3 % (11.5-14.5) Platelet Count 553 x10^3/uL (140-400) 396 x10^3/uL (140-400) Neutrophils (%) (Auto) 82 % (31-73) 61 % (31-73) Lymphocytes (%) (Auto) 12 % (24-48) 24 % (24-48) Monocytes (%) (Auto) 5 % (0-9) 13 % (0-9) Eosinophils (%) (Auto) 0 % (0-3) 1 % (0-3) Basophils (%) (Auto) 1 % (0-3) 1 % (0-3) Neutrophils # (Auto) 10.6 x10^3uL (1.8-7.7) 3.9 x10^3uL (1.8-7.7) Lymphocytes # (Auto) 1.6 x10^3/uL (1.0-4.8) 1.5 x10^3/uL (1.0-4.8) Monocytes # (Auto) 0.7 x10^3/uL (0.0-1.1) 0.8 x10^3/uL (0.0-1.1) Eosinophils # (Auto) 0.0 x10^3/uL (0.0-0.7) 0.1 x10^3/uL (0.0-0.7) Basophils # (Auto) 0.1 x10^3/uL (0.0-0.2) 0.1 x10^3/uL (0.0-0.2) Platelet Estimate Increased (ADEQUATE) Polychromasia Slight Hypochromasia Mod Anisocytosis Mod Microcytosis Marked Sodium Level 133 mmol/L (136-145) 136 mmol/L (136-145) Potassium Level 3.6 mmol/L (3.5-5.1) 3.3 mmol/L (3.5-5.1) Chloride Level 98 mmol/L (98-107) 102 mmol/L (98-107) Carbon Dioxide Level 21 mmol/L (21-32) 29 mmol/L (21-32) Anion Gap 14 (6-14) 5 (6-14) Blood Urea Nitrogen 7 mg/dL (7-20) 7 mg/dL (7-20) Creatinine 0.6 mg/dL (0.6-1.0) 0.5 mg/dL (0.6-1.0) Estimated GFR (Cockcroft-Gault) 106.3 131.1 Glucose Level 122 mg/dL (70-99) 112 mg/dL (70-99) Calcium Level 8.9 mg/dL (8.5-10.1) 8.5 mg/dL (8.5-10.1) Iron Level 13 ug/dL (50-170) Total Iron Binding Capacity 632 ug/dL (250-450) Iron Saturation 2 % (15-34) BUN/Creatinine Ratio 14 (6-20) Total Bilirubin 0.7 mg/dL (0.2-1.0) Aspartate Amino Transf (AST/SGOT) 208 U/L (15-37) Alanine Aminotransferase (ALT/SGPT) 112 U/L (14-59) Alkaline Phosphatase 201 U/L (46-116) Total Protein 6.7 g/dL (6.4-8.2) Albumin 3.0 g/dL (3.4-5.0) Albumin/Globulin Ratio 0.8 (1.0-1.7) Review of Systems Review of Systems no co BRUCE no co palpitations no co nausea Assessment and Plan Assessmemt and Plan Assessment: humerus fx Hx of SVT, HTN Plan: home meds Toradol 30mg IVQ6 fluids PTOT surgical repair of proximal humerus Comment Review of Relevant I have reviewed the following items gladys (where applicable) has been applied. Labs Laboratory Tests Test 03/05/18 16:36 03/06/18 06:25 White Blood Count 13.0 x10^3/uL (4.0-11.0) 6.3 x10^3/uL (4.0-11.0) Red Blood Count 4.58 x10^6/uL (3.50-5.40) 4.13 x10^6/uL (3.50-5.40) Hemoglobin 9.0 g/dL (12.0-15.5) 8.2 g/dL (12.0-15.5) Hematocrit 29.4 % (36.0-47.0) 27.1 % (36.0-47.0) Mean Corpuscular Volume 64 fL (79-100) 66 fL (79-100) Mean Corpuscular Hemoglobin 20 pg (25-35) 20 pg (25-35) Mean Corpuscular Hemoglobin Concent 31 g/dL (31-37) 30 g/dL (31-37) Red Cell Distribution Width 20.2 % (11.5-14.5) 20.3 % (11.5-14.5) Platelet Count 553 x10^3/uL (140-400) 396 x10^3/uL (140-400) Neutrophils (%) (Auto) 82 % (31-73) 61 % (31-73) Lymphocytes (%) (Auto) 12 % (24-48) 24 % (24-48) Monocytes (%) (Auto) 5 % (0-9) 13 % (0-9) Eosinophils (%) (Auto) 0 % (0-3) 1 % (0-3) Basophils (%) (Auto) 1 % (0-3) 1 % (0-3) Neutrophils # (Auto) 10.6 x10^3uL (1.8-7.7) 3.9 x10^3uL (1.8-7.7) Lymphocytes # (Auto) 1.6 x10^3/uL (1.0-4.8) 1.5 x10^3/uL (1.0-4.8) Monocytes # (Auto) 0.7 x10^3/uL (0.0-1.1) 0.8 x10^3/uL (0.0-1.1) Eosinophils # (Auto) 0.0 x10^3/uL (0.0-0.7) 0.1 x10^3/uL (0.0-0.7) Basophils # (Auto) 0.1 x10^3/uL (0.0-0.2) 0.1 x10^3/uL (0.0-0.2) Platelet Estimate Increased (ADEQUATE) Polychromasia Slight Hypochromasia Mod Anisocytosis Mod Microcytosis Marked Sodium Level 133 mmol/L (136-145) 136 mmol/L (136-145) Potassium Level 3.6 mmol/L (3.5-5.1) 3.3 mmol/L (3.5-5.1) Chloride Level 98 mmol/L (98-107) 102 mmol/L (98-107) Carbon Dioxide Level 21 mmol/L (21-32) 29 mmol/L (21-32) Anion Gap 14 (6-14) 5 (6-14) Blood Urea Nitrogen 7 mg/dL (7-20) 7 mg/dL (7-20) Creatinine 0.6 mg/dL (0.6-1.0) 0.5 mg/dL (0.6-1.0) Estimated GFR (Cockcroft-Gault) 106.3 131.1 Glucose Level 122 mg/dL (70-99) 112 mg/dL (70-99) Calcium Level 8.9 mg/dL (8.5-10.1) 8.5 mg/dL (8.5-10.1) Iron Level 13 ug/dL (50-170) Total Iron Binding Capacity 632 ug/dL (250-450) Iron Saturation 2 % (15-34) BUN/Creatinine Ratio 14 (6-20) Total Bilirubin 0.7 mg/dL (0.2-1.0) Aspartate Amino Transf (AST/SGOT) 208 U/L (15-37) Alanine Aminotransferase (ALT/SGPT) 112 U/L (14-59) Alkaline Phosphatase 201 U/L (46-116) Total Protein 6.7 g/dL (6.4-8.2) Albumin 3.0 g/dL (3.4-5.0) Albumin/Globulin Ratio 0.8 (1.0-1.7) Laboratory Tests Test 03/05/18 16:36 03/06/18 06:25 White Blood Count 13.0 x10^3/uL (4.0-11.0) 6.3 x10^3/uL (4.0-11.0) Red Blood Count 4.58 x10^6/uL (3.50-5.40) 4.13 x10^6/uL (3.50-5.40) Hemoglobin 9.0 g/dL (12.0-15.5) 8.2 g/dL (12.0-15.5) Hematocrit 29.4 % (36.0-47.0) 27.1 % (36.0-47.0) Mean Corpuscular Volume 64 fL (79-100) 66 fL (79-100) Mean Corpuscular Hemoglobin 20 pg (25-35) 20 pg (25-35) Mean Corpuscular Hemoglobin Concent 31 g/dL (31-37) 30 g/dL (31-37) Red Cell Distribution Width 20.2 % (11.5-14.5) 20.3 % (11.5-14.5) Platelet Count 553 x10^3/uL (140-400) 396 x10^3/uL (140-400) Neutrophils (%) (Auto) 82 % (31-73) 61 % (31-73) Lymphocytes (%) (Auto) 12 % (24-48) 24 % (24-48) Monocytes (%) (Auto) 5 % (0-9) 13 % (0-9) Eosinophils (%) (Auto) 0 % (0-3) 1 % (0-3) Basophils (%) (Auto) 1 % (0-3) 1 % (0-3) Neutrophils # (Auto) 10.6 x10^3uL (1.8-7.7) 3.9 x10^3uL (1.8-7.7) Lymphocytes # (Auto) 1.6 x10^3/uL (1.0-4.8) 1.5 x10^3/uL (1.0-4.8) Monocytes # (Auto) 0.7 x10^3/uL (0.0-1.1) 0.8 x10^3/uL (0.0-1.1) Eosinophils # (Auto) 0.0 x10^3/uL (0.0-0.7) 0.1 x10^3/uL (0.0-0.7) Basophils # (Auto) 0.1 x10^3/uL (0.0-0.2) 0.1 x10^3/uL (0.0-0.2) Platelet Estimate Increased (ADEQUATE) Polychromasia Slight Hypochromasia Mod Anisocytosis Mod Microcytosis Marked Sodium Level 133 mmol/L (136-145) 136 mmol/L (136-145) Potassium Level 3.6 mmol/L (3.5-5.1) 3.3 mmol/L (3.5-5.1) Chloride Level 98 mmol/L (98-107) 102 mmol/L (98-107) Carbon Dioxide Level 21 mmol/L (21-32) 29 mmol/L (21-32) Anion Gap 14 (6-14) 5 (6-14) Blood Urea Nitrogen 7 mg/dL (7-20) 7 mg/dL (7-20) Creatinine 0.6 mg/dL (0.6-1.0) 0.5 mg/dL (0.6-1.0) Estimated GFR (Cockcroft-Gault) 106.3 131.1 Glucose Level 122 mg/dL (70-99) 112 mg/dL (70-99) Calcium Level 8.9 mg/dL (8.5-10.1) 8.5 mg/dL (8.5-10.1) Iron Level 13 ug/dL (50-170) Total Iron Binding Capacity 632 ug/dL (250-450) Iron Saturation 2 % (15-34) BUN/Creatinine Ratio 14 (6-20) Total Bilirubin 0.7 mg/dL (0.2-1.0) Aspartate Amino Transf (AST/SGOT) 208 U/L (15-37) Alanine Aminotransferase (ALT/SGPT) 112 U/L (14-59) Alkaline Phosphatase 201 U/L (46-116) Total Protein 6.7 g/dL (6.4-8.2) Albumin 3.0 g/dL (3.4-5.0) Albumin/Globulin Ratio 0.8 (1.0-1.7) Medications Current Medications Morphine Sulfate (Morphine Sulfate) 4 mg 1X ONCE IV Last administered on at 16:49; Start 03/05/18 at 16:30; Stop 03/05/18 at 16:31; Status DC Ondansetron HCl (Zofran) 4 mg 1X ONCE IV Last administered on 03/05/18at 16:49 ; Start 03/05/18 at 16:30; Stop 03/05/18 at 16:31; Status DC Morphine Sulfate (Morphine Sulfate) 4 mg 1X ONCE IV Last administered on at 17:15; Start 03/05/18 at 17:15; Stop 03/05/18 at 17:16; Status DC Ondansetron HCl (Zofran) 4 mg PRN Q8HRS PRN IV NAUSEA/VOMITING; Start 03/05/18 at 18:00; Stop 03/06/18 at 17:59 Morphine Sulfate (Morphine Sulfate) 4 mg PRN Q2HR PRN IV PAIN Last administered on 03/06/18at 10:37; Start 03/05/18 at 18:00; Stop 03/06/18 at 17:59 Acetaminophen (Tylenol) 650 mg PRN Q4HRS PRN PO FEVER; Start 03/05/18 at 18:00 ; Stop 03/06/18 at 17:59 Metoprolol Succinate (Toprol Xl) 25 mg 1X ONCE PO Last administered on at 19:04; Start 03/05/18 at 18:30; Stop 03/05/18 at 18:38; Status DC Sodium Chloride 1,000 ml @ 100 mls/hr 1X ONCE IV Last administered on at 21:37; Start 03/05/18 at 18:45; Stop 03/06/18 at 04:44; Status DC Polysaccharide Iron Complex (Niferex 150) 150 mg DAILY PO Last administered on 03/06/18at 08:02; Start 03/06/18 at 09:00 Amlodipine Besylate (Norvasc) 10 mg DAILY PO Last administered on 03/06/18at 08: 03; Start 03/05/18 at 23:00 Furosemide (Lasix) 20 mg DAILY PO Last administered on 03/06/18at 08:03; Start 03/06/18 at 09:00 Ondansetron HCl (Zofran) 4 mg PRN Q6HRS PRN IV NAUSEA/VOMITING; Start 03/06/18 at 08:45; Stop 03/07/18 at 08:44 Morphine Sulfate (Morphine Sulfate) 1 mg PRN Q10MIN PRN IV SEVERE PAIN; Start 03/06/18 at 08:45; Stop 03/07/18 at 08:44 Ringer's Solution 1,000 ml @ 30 mls/hr Q24H IV Last administered on 03/06/18at 11:16; Start 03/06/18 at 08:39; Stop 03/06/18 at 20:38 Lidocaine HCl (Xylocaine-Mpf 1% 2ml Vial) 2 ml 1X PRN PRN ID IV START; Start at 08:45; Stop 03/07/18 at 08:44 Hydromorphone HCl (Dilaudid) 0.5 mg PRN Q10MIN PRN IV SEV PAIN, Second choice; Start 03/06/18 at 08:45; Stop 03/07/18 at 08:44 Prochlorperazine Edisylate (Compazine) 5 mg PACU PRN PRN IV NAUSEA, MRX1; Start 03/06/18 at 08:45; Stop 03/07/18 at 08:44 Bupivacaine HCl/ Epinephrine Bitart (Marcaine-Epi 0.25%-[id number]) 50 ml STK-MED ONCE .ROUTE ; Start 03/06/18 at 07:54; Stop 03/06/18 at 08:56; Status DC Bupivacaine HCl (Marcaine 0.25%) 50 ml STK-MED ONCE .ROUTE ; Start 03/06/18 at 07:54; Stop 03/06/18 at 08:56; Status DC Lidocaine HCl (Xylocaine 1% Pf 30ml Vial) 30 ml STK-MED ONCE .ROUTE ; Start at 07:55; Stop 03/06/18 at 08:56; Status DC Scopolamine (Transderm-Scop) 1 patch STK-MED ONCE TD ; Start 03/06/18 at 11:26; Stop 03/06/18 at 11:27; Status DC Scopolamine (Transderm-Scop) 1 patch 1X ONCE TD Last administered on at 11:32; Start 03/06/18 at 11:30; Stop 03/06/18 at 11:31; Status DC Propofol 20 ml @ As Directed STK-MED ONCE IV ; Start 03/06/18 at 11:39; Stop at 11:40; Status DC Lidocaine HCl (Lidocaine Pf 2% Vial) 5 ml STK-MED ONCE .ROUTE ; Start 03/06/18 at 11:39; Stop 03/06/18 at 11:40; Status DC Rocuronium [place] (Zemuron) 50 mg STK-MED ONCE .ROUTE ; Start 03/06/18 at 11:39 ; Stop 03/06/18 at 11:41; Status DC Fentanyl Citrate (Fentanyl 2ml Vial) 100 mcg STK-MED ONCE .ROUTE ; Start at 11:40; Stop 03/06/18 at 11:41; Status DC Midazolam HCl (Versed) 2 mg STK-MED ONCE .ROUTE ; Start 03/06/18 at 11:40; Stop 03/06/18 at 11:41; Status DC Cefazolin Sodium/ Dextrose 50 ml @ As Directed STK-MED ONCE IV ; Start 03/06/18 at 11:40; Stop 03/06/18 at 11:42; Status DC Cefazolin Sodium/ Dextrose 50 ml @ 100 mls/hr 1X PREOP PRN IV Pre Op Dose; Start 03/06/18 at 12:30; Stop 03/07/18 at 12:29 Morphine Sulfate 5 mg/Ketorolac Tromethamine 30 mg/Ropivacaine 60 ml/ Epinephrine HCl 0.5 mg/Sodium Chloride 100 ml @ 100 mls/hr 1X ONCE INT ART ; Start 03/06/18 at 12:30; Stop 03/06/18 at 13:29 Cefazolin Sodium/ Dextrose 50 ml @ 100 mls/hr Q6H IV ; Start 03/06/18 at 19:00 ; Stop 03/07/18 at 07:29 Active Scripts Active Reported Bupropion Hcl Sr (Bupropion Hcl) 150 Mg Tablet.er 150 Mg PO Wellbutrin Sr (Bupropion Hcl) 100 Mg Tablet.er Unknown Dose PO DAILY Amlodipine Besylate 10 Mg Tablet 10 Mg PO DAILY Lasix (Furosemide) 40 Mg Tablet 40 Mg PO DAILY Vitals/I & O Vital Sign - Last 24 Hours 03/05/18 03/05/18 03/05/18 03/05/18 16:30 16:30 17:00 17:15 Temp 97.8 97.8 Pulse 98 107 100 Resp 20 20 20 21 B/P (MAP) 172/104 (126) 172/104 (126) 171/104 (126) Pulse Ox 97 98 97 95 O2 Delivery Room Air Room Air Room Air Room Air 03/05/18 03/05/18 03/05/18 03/05/18 17:30 18:00 19:01 19:04 Pulse 98 98 105 Resp 20 20 22 B/P (MAP) 166/92 (116) 179/96 (123) 178/97 Pulse Ox 97 98 96 O2 Delivery Room Air Room Air Room Air 03/05/18 03/05/18 03/05/18 03/05/18 20:00 21:18 22:58 23:00 Temp 98.9 99.3 98.9 99.3 Pulse 106 96 Resp 16 18 B/P (MAP) 152/105 (121) 156/88 156/88 (110) Pulse Ox 100 96 O2 Delivery Room Air Room Air Room Air 03/06/18 03/06/18 03/06/18 03/06/18 00:04 01:06 02:32 03:00 Temp 98.9 98.9 Pulse 89 Resp 18 B/P (MAP) 148/89 (108) Pulse Ox 96 O2 Delivery Room Air Room Air Room Air Room Air 03/06/18 03/06/18 03/06/18 03/06/18 05:09 05:47 07:00 08:00 Temp 97.7 97.7 Pulse 91 Resp 18 18 16 B/P (MAP) 151/88 (109) Pulse Ox 92 O2 Delivery Room Air Room Air Room Air 03/06/18 03/06/18 03/06/18 03/06/18 08:03 08:03 08:33 10:37 Pulse 91 B/P (MAP) 151/88 O2 Delivery Room Air Room Air Room Air 03/06/18 11:00 Temp 98.0 98.0 Pulse 95 Resp 18 B/P (MAP) 175/97 Pulse Ox 94 O2 Delivery Room Air Intake and Output 03/05/18 03/05/18 03/06/18 15:00 23:00 07:00 Intake Total 120 ml Output Total 1600 ml Balance -1480 ml DIETER LEE III DO Mar 06, 2018 12:30
[2018-03-06] MEDS ORDERED: KETOROLAC 30 MG/ML INJ FOR OR. INJ ONE (12:55)
[2018-03-06] MEDS ORDERED: GLYCOPYRROLATE 1 MG/5 ML VIAL. ONE (12:55)
[2018-03-06] MEDS ORDERED: NEOSTIGMINE METHYLSULFATE 5 MG/5 ML SYRINGE. ONE (12:55)
[2018-03-06] MEDS ORDERED: MORPHINE SULFATE 10 MG/ML VIAL. ONE (12:57)
--- NOTE | 2018-03-06 13:12 | RAD ---
EXAM: CT right shoulder DATE: 03/06/2018 COMPARISON: 03/05/2018 INDICATION: RIGHT SHOULDER FX TECHNIQUE: CT of the right shoulder and humerus was performed. 2-D reformatted sagittal and coronal images were created at the CT console workstation. FINDINGS: Comminuted fracture of the right humeral head. Fracture planes are seen extending through the surgical neck of the right humerus as well as to the greater tuberosity. The greater tuberosity is mildly displaced (4 mm). There is mild impaction of the humeral shaft component at the surgical neck fracture plane. Inferior subluxation of the humeral head from joint effusion. No evidence for dislocation. No definite additional fracture is identified. Diffuse soft tissue swelling is seen about the right shoulder. Close partial evaluation, the right lung is clear. IMPRESSION: 1. Comminuted fracture of the right humeral head with principal fracture planes through the surgical neck and base of greater tuberosity. Electronically signed by: Wong Williamson MD (03/06/2018 1:09 PM) [facility]
[2018-03-06] MEDS ORDERED: SEVOFLURANE > 120 MINUTES. IH ONE (14:49)
--- NOTE | 2018-03-06 15:08 | PDOC4 ---
Operative Note Operative Note Date of surgery: 03/06/2018 Surgeon: Ryan Gonzalez Senior Financial Reporting Accountant: Mary Dacosta, certified art therapist Preoperative diagnosis: closed, comminuted, displaced, right proximal humerus fracture dislocation Postoperative diagnosis: Same Procedure performed: Open reduction internal fixation right proximal humerus fracture Anesthesia: Gen. Findings: Acute fracture Complications: None Blood loss: 150 mL Components inserted: Cai and nephew 3 hole proximal humerus locking plate Reason for procedure: Patient is very +47-year-old female who had seen in consultation after a ground-level fall. Please see my consult note for full details. Discussion of the risks, benefits, alternatives was had and she wished to proceed with my recommended treatment plan of operative fixation. Description of procedure: Patient was greeted in the preoperative area where the correct extremity was verified and marked. She was taken to the operative suite and her antibiotics were started as she was brought back. Once in the operating room, she was transferred gently supine to the operating room table and secured to the bed with all pressure points padded. Large pad under her legs. She was sat up in a beachchair position and her C-spine was maintained in neutral position. I brought in C-arm to ensure I could get good images. Right upper extremity was prepped and draped in our usual sterile fashion including Ioban at the periphery. We conducted our standard preoperative timeout. I then palpated and marked surface anatomy and made my standard deltopectoral skin incision dissected subcutaneous tissue with Metzenbaums and electrocautery. Liters were cauterized as a were encountered. Identified the deltopectoral interval, there is a large amount of soft tissue hemorrhage and I spent time working carefully, I identified the deltopectoral interval and bluntly developed a, taking the cephalic vein laterally. Identified clavipectoral fascia , incised it proximally, distally it had traumatically ruptured. Identified the fracture site and began debriding this with a combination of a small rongeur, dental pick, metal tipped suction device. I keyed open the fracture to remove the hematoma and clot. After this, I placed 2 #2 Ethibond sutures through the greater tuberosity fragment into the lesser tuberosity fragment and tied these down securely to reduce these. I then placed a K wire into the humeral head to use it as a joystick, which was useful to help facilitate my reduction. I used a small Hohmann to help hold the head in a reduced position at the calcar and rotated the shaft and pulled traction through my arm positioning device. The K wire and the humeral head was held in place to help control rotation of this fragment. I checked my reduction and then provisionally held the plate against bone and checked my plate position and then pinned this into place proximally and distally to the fracture fragment. I then checked my reduction plate position was happy after making a small adjustment distally. I then placed 2 nonlocking screws, one proximal and one distal to the major fracture line to secure the plate to bone. I then filled the remainder the screw holes with locking screws with the exception of those screw holes that would've disrupted my Ethibond cerclage. I then placed #2 Ethibond through the supraspinatus and then the plate to help take tension off this fragment. I then removed the K wires and drill guides and checked my hardware position and fracture reduction on x-ray and was happy. I used the approach-withdrawal method underlying fluoroscopy to ensure extra-articular placement of the screws. After this, irrigated out the operative field with sterile saline and then injected my periarticular mixture into the kaya-incisional soft tissue envelope as well as the subacromial space. After this, deltopectoral interval was closed with running #1 Vicryl followed by inverted interrupted 2 on a multilayered fashion for subcutaneous tissues tissue and running 4-0 Monocryl in a buried subcuticular fashion for skin. Prior to wound closure, all counts correct 2. No complications. Surgery was well tolerated by the patient. Her arm was cleansed and dried and a sterile dressing was applied followed by an abduction pillow sling. At the conclusion of the surgery, she is awake from anesthesia and laid gently supine and transferred gently supine to the hospital bed. Postoperative plan is to transfer back to the floor under the care of the hospitalist. I will follow along. We will hold off on a rehabilitation for 2 weeks. She will receive postoperative antibiotics. RYAN GONZALEZ II, MD Mar 06, 2018 15:08
[2018-03-07] MEDS: MORPHINE SULFATE 4 MG/ML VIAL. IV PRN ×4 (00:19→21:38)
[2018-03-07 03:29] VITALS: BP 134/84
[2018-03-07 04:21] LABS: BASO # 0.1 x10^3/uL (0.0-0.2); BASO % 1 % (0-3); EOS % 0 % (0-3); HEMATOCRIT 24.8 % (36.0-47.0); HEMOGLOBIN 7.5 g/dL (12.0-15.5); LYMPH # 1.2 x10^3/uL (1.0-4.8); LYMPH % 11 % (24-48); MEAN CORPUSCULAR HEMOGLOBIN 20 pg (25-35); MEAN CORPUSCULAR HGB CONC 30 g/dL (31-37); MEAN CORPUSCULAR VOLUME 66 fL (79-100); MONO # 0.8 x10^3/uL (0.0-1.1); MONO % 7 % (0-9); NEUT # 9.1 x10^3uL (1.8-7.7); NEUT % 81 % (31-73); PLATELET COUNT 365 x10^3/uL (140-400); RED BLOOD COUNT 3.79 x10^6/uL (3.50-5.40); RED CELL DISTRIBUTION WIDTH 20.3 % (11.5-14.5); WHITE BLOOD COUNT 11.2 x10^3/uL (4.0-11.0)
[2018-03-07 04:39] LABS: CALCIUM 8.4 mg/dL (8.5-10.1); CREATININE 0.6 mg/dL (0.6-1.0); GFR 106.3; POTASSIUM 3.4 mmol/L (3.5-5.1)
[2018-03-07 07:00] VITALS: BP 152/94
--- NOTE | 2018-03-07 10:19 | PDOC ---
ORTHO PROGRESS NOTES Subjective Gloria's pain is local ecchymosis morning, since the injection has worn off. She denies any sensation in her fingers. Vitals Vital Signs Date Time Temp Pulse Resp B/P (MAP) Pulse Ox O2 Delivery O2 Flow Rate FiO2 03/07/18 07:00 98.2 109 18 152/94 (113) 97 Room Air 98.2 03/06/18 15:48 10 Labs Laboratory Tests Test 03/05/18 16:36 03/06/18 00:30 03/06/18 06:25 03/07/18 03:50 White Blood Count 13.0 x10^3/uL (4.0-11.0) 6.3 x10^3/uL (4.0-11.0) 11.2 x10^3/uL (4.0-11.0) Red Blood Count 4.58 x10^6/uL (3.50-5.40) 4.13 x10^6/uL (3.50-5.40) 3.79 x10^6/uL (3.50-5.40) Hemoglobin 9.0 g/dL (12.0-15.5) 8.2 g/dL (12.0-15.5) 7.5 g/dL (12.0-15.5) Hematocrit 29.4 % (36.0-47.0) 27.1 % (36.0-47.0) 24.8 % (36.0-47.0) Mean Corpuscular Volume 64 fL (79-100) 66 fL (79-100) 66 fL (79-100) Mean Corpuscular Hemoglobin 20 pg (25-35) 20 pg (25-35) 20 pg (25-35) Mean Corpuscular Hemoglobin Concent 31 g/dL (31-37) 30 g/dL (31-37) 30 g/dL (31-37) Red Cell Distribution Width 20.2 % (11.5-14.5) 20.3 % (11.5-14.5) 20.3 % (11.5-14.5) Platelet Count 553 x10^3/uL (140-400) 396 x10^3/uL (140-400) 365 x10^3/uL (140-400) Neutrophils (%) (Auto) 82 % (31-73) 61 % (31-73) 81 % (31-73) Lymphocytes (%) (Auto) 12 % (24-48) 24 % (24-48) 11 % (24-48) Monocytes (%) (Auto) 5 % (0-9) 13 % (0-9) 7 % (0-9) Eosinophils (%) (Auto) 0 % (0-3) 1 % (0-3) 0 % (0-3) Basophils (%) (Auto) 1 % (0-3) 1 % (0-3) 1 % (0-3) Neutrophils # (Auto) 10.6 x10^3uL (1.8-7.7) 3.9 x10^3uL (1.8-7.7) 9.1 x10^3uL (1.8-7.7) Lymphocytes # (Auto) 1.6 x10^3/uL (1.0-4.8) 1.5 x10^3/uL (1.0-4.8) 1.2 x10^3/uL (1.0-4.8) Monocytes # (Auto) 0.7 x10^3/uL (0.0-1.1) 0.8 x10^3/uL (0.0-1.1) 0.8 x10^3/uL (0.0-1.1) Eosinophils # (Auto) 0.0 x10^3/uL (0.0-0.7) 0.1 x10^3/uL (0.0-0.7) 0.0 x10^3/uL (0.0-0.7) Basophils # (Auto) 0.1 x10^3/uL (0.0-0.2) 0.1 x10^3/uL (0.0-0.2) 0.1 x10^3/uL (0.0-0.2) Platelet Estimate Increased (ADEQUATE) Polychromasia Slight Hypochromasia Mod Anisocytosis Mod Microcytosis Marked Sodium Level 133 mmol/L (136-145) 136 mmol/L (136-145) 136 mmol/L (136-145) Potassium Level 3.6 mmol/L (3.5-5.1) 3.3 mmol/L (3.5-5.1) 3.4 mmol/L (3.5-5.1) Chloride Level 98 mmol/L (98-107) 102 mmol/L (98-107) 103 mmol/L (98-107) Carbon Dioxide Level 21 mmol/L (21-32) 29 mmol/L (21-32) 29 mmol/L (21-32) Anion Gap 14 (6-14) 5 (6-14) 4 (6-14) Blood Urea Nitrogen 7 mg/dL (7-20) 7 mg/dL (7-20) 5 mg/dL (7-20) Creatinine 0.6 mg/dL (0.6-1.0) 0.5 mg/dL (0.6-1.0) 0.6 mg/dL (0.6-1.0) Estimated GFR (Cockcroft-Gault) 106.3 131.1 106.3 Glucose Level 122 mg/dL (70-99) 112 mg/dL (70-99) 118 mg/dL (70-99) Calcium Level 8.9 mg/dL (8.5-10.1) 8.5 mg/dL (8.5-10.1) 8.4 mg/dL (8.5-10.1) Iron Level 13 ug/dL (50-170) Total Iron Binding Capacity 632 ug/dL (250-450) Iron Saturation 2 % (15-34) Nasal Screen MRSA (PCR) Negative (Negative) BUN/Creatinine Ratio 14 (6-20) Total Bilirubin 0.7 mg/dL (0.2-1.0) Aspartate Amino Transf (AST/SGOT) 208 U/L (15-37) Alanine Aminotransferase (ALT/SGPT) 112 U/L (14-59) Alkaline Phosphatase 201 U/L (46-116) Total Protein 6.7 g/dL (6.4-8.2) Albumin 3.0 g/dL (3.4-5.0) Albumin/Globulin Ratio 0.8 (1.0-1.7) Laboratory Tests Test 03/07/18 03:50 White Blood Count 11.2 x10^3/uL (4.0-11.0) Red Blood Count 3.79 x10^6/uL (3.50-5.40) Hemoglobin 7.5 g/dL (12.0-15.5) Hematocrit 24.8 % (36.0-47.0) Mean Corpuscular Volume 66 fL (79-100) Mean Corpuscular Hemoglobin 20 pg (25-35) Mean Corpuscular Hemoglobin Concent 30 g/dL (31-37) Red Cell Distribution Width 20.3 % (11.5-14.5) Platelet Count 365 x10^3/uL (140-400) Neutrophils (%) (Auto) 81 % (31-73) Lymphocytes (%) (Auto) 11 % (24-48) Monocytes (%) (Auto) 7 % (0-9) Eosinophils (%) (Auto) 0 % (0-3) Basophils (%) (Auto) 1 % (0-3) Neutrophils # (Auto) 9.1 x10^3uL (1.8-7.7) Lymphocytes # (Auto) 1.2 x10^3/uL (1.0-4.8) Monocytes # (Auto) 0.8 x10^3/uL (0.0-1.1) Eosinophils # (Auto) 0.0 x10^3/uL (0.0-0.7) Basophils # (Auto) 0.1 x10^3/uL (0.0-0.2) Sodium Level 136 mmol/L (136-145) Potassium Level 3.4 mmol/L (3.5-5.1) Chloride Level 103 mmol/L (98-107) Carbon Dioxide Level 29 mmol/L (21-32) Anion Gap 4 (6-14) Blood Urea Nitrogen 5 mg/dL (7-20) Creatinine 0.6 mg/dL (0.6-1.0) Estimated GFR (Cockcroft-Gault) 106.3 Glucose Level 118 mg/dL (70-99) Calcium Level 8.4 mg/dL (8.5-10.1) Notes She is awake and alert in bed. Right upper extremity is in a abduction pillow sling. Motor and sensation intact median, radial, ulnar nn. Dressing is intact and dry. Assessment and Plan She will be nonweightbearing right upper extremity, arm to remain in the sling. We will get an aquacel over her incision prior to discharge. From my standpoint she can be discharged when she is comfortable on oral pain medicine. She should follow up in my clinic in 2 weeks KATHRYN GONZALEZ II, MD Mar 07, 2018 10:19
[2018-03-07 11:00] VITALS: BP 144/82
--- NOTE | 2018-03-07 11:05 | PDOC ---
PROGRESS NOTES Chief Complaint Chief Complaint humerus fx Hx of SVT, HTN History of Present Illness History of Present Illness pt seen and examined Dr. Judge performed ORIF yesterday Pt ambulating around room with ease still in moderate pain DW RN VSS Vitals Vitals Vital Signs Date Time Temp Pulse Resp B/P (MAP) Pulse Ox O2 Delivery O2 Flow Rate FiO2 03/07/18 07:00 98.2 109 18 152/94 (113) 97 Room Air 98.2 03/06/18 15:48 10 Physical Exam General: Alert, Oriented X3 Heart: Regular rate, Normal S1, Normal S2, No murmurs Lungs: Clear Abdomen: Normal bowel sounds, Soft, No tenderness Extremities: No clubbing, No cyanosis, No edema, Normal pulses Skin: No rashes, No breakdown, Other (R humerus ORIF) Labs LABS Laboratory Tests Test 03/07/18 03:50 White Blood Count 11.2 x10^3/uL (4.0-11.0) Red Blood Count 3.79 x10^6/uL (3.50-5.40) Hemoglobin 7.5 g/dL (12.0-15.5) Hematocrit 24.8 % (36.0-47.0) Mean Corpuscular Volume 66 fL (79-100) Mean Corpuscular Hemoglobin 20 pg (25-35) Mean Corpuscular Hemoglobin Concent 30 g/dL (31-37) Red Cell Distribution Width 20.3 % (11.5-14.5) Platelet Count 365 x10^3/uL (140-400) Neutrophils (%) (Auto) 81 % (31-73) Lymphocytes (%) (Auto) 11 % (24-48) Monocytes (%) (Auto) 7 % (0-9) Eosinophils (%) (Auto) 0 % (0-3) Basophils (%) (Auto) 1 % (0-3) Neutrophils # (Auto) 9.1 x10^3uL (1.8-7.7) Lymphocytes # (Auto) 1.2 x10^3/uL (1.0-4.8) Monocytes # (Auto) 0.8 x10^3/uL (0.0-1.1) Eosinophils # (Auto) 0.0 x10^3/uL (0.0-0.7) Basophils # (Auto) 0.1 x10^3/uL (0.0-0.2) Sodium Level 136 mmol/L (136-145) Potassium Level 3.4 mmol/L (3.5-5.1) Chloride Level 103 mmol/L (98-107) Carbon Dioxide Level 29 mmol/L (21-32) Anion Gap 4 (6-14) Blood Urea Nitrogen 5 mg/dL (7-20) Creatinine 0.6 mg/dL (0.6-1.0) Estimated GFR (Cockcroft-Gault) 106.3 Glucose Level 118 mg/dL (70-99) Calcium Level 8.4 mg/dL (8.5-10.1) Review of Systems Review of Systems pt co pain no co N/V/D no co BRUCE Assessment and Plan Assessmemt and Plan Assessment: humerus fx Hx of SVT, HTN Plan: PTOT pain management DC with Percocet 10mg PO Q4 PRN Probable DC later today Comment Review of Relevant I have reviewed the following items gladys (where applicable) has been applied. Labs Laboratory Tests Test 03/05/18 16:36 03/06/18 00:30 03/06/18 06:25 03/07/18 03:50 White Blood Count 13.0 x10^3/uL (4.0-11.0) 6.3 x10^3/uL (4.0-11.0) 11.2 x10^3/uL (4.0-11.0) Red Blood Count 4.58 x10^6/uL (3.50-5.40) 4.13 x10^6/uL (3.50-5.40) 3.79 x10^6/uL (3.50-5.40) Hemoglobin 9.0 g/dL (12.0-15.5) 8.2 g/dL (12.0-15.5) 7.5 g/dL (12.0-15.5) Hematocrit 29.4 % (36.0-47.0) 27.1 % (36.0-47.0) 24.8 % (36.0-47.0) Mean Corpuscular Volume 64 fL (79-100) 66 fL (79-100) 66 fL (79-100) Mean Corpuscular Hemoglobin 20 pg (25-35) 20 pg (25-35) 20 pg (25-35) Mean Corpuscular Hemoglobin Concent 31 g/dL (31-37) 30 g/dL (31-37) 30 g/dL (31-37) Red Cell Distribution Width 20.2 % (11.5-14.5) 20.3 % (11.5-14.5) 20.3 % (11.5-14.5) Platelet Count 553 x10^3/uL (140-400) 396 x10^3/uL (140-400) 365 x10^3/uL (140-400) Neutrophils (%) (Auto) 82 % (31-73) 61 % (31-73) 81 % (31-73) Lymphocytes (%) (Auto) 12 % (24-48) 24 % (24-48) 11 % (24-48) Monocytes (%) (Auto) 5 % (0-9) 13 % (0-9) 7 % (0-9) Eosinophils (%) (Auto) 0 % (0-3) 1 % (0-3) 0 % (0-3) Basophils (%) (Auto) 1 % (0-3) 1 % (0-3) 1 % (0-3) Neutrophils # (Auto) 10.6 x10^3uL (1.8-7.7) 3.9 x10^3uL (1.8-7.7) 9.1 x10^3uL (1.8-7.7) Lymphocytes # (Auto) 1.6 x10^3/uL (1.0-4.8) 1.5 x10^3/uL (1.0-4.8) 1.2 x10^3/uL (1.0-4.8) Monocytes # (Auto) 0.7 x10^3/uL (0.0-1.1) 0.8 x10^3/uL (0.0-1.1) 0.8 x10^3/uL (0.0-1.1) Eosinophils # (Auto) 0.0 x10^3/uL (0.0-0.7) 0.1 x10^3/uL (0.0-0.7) 0.0 x10^3/uL (0.0-0.7) Basophils # (Auto) 0.1 x10^3/uL (0.0-0.2) 0.1 x10^3/uL (0.0-0.2) 0.1 x10^3/uL (0.0-0.2) Platelet Estimate Increased (ADEQUATE) Polychromasia Slight Hypochromasia Mod Anisocytosis Mod Microcytosis Marked Sodium Level 133 mmol/L (136-145) 136 mmol/L (136-145) 136 mmol/L (136-145) Potassium Level 3.6 mmol/L (3.5-5.1) 3.3 mmol/L (3.5-5.1) 3.4 mmol/L (3.5-5.1) Chloride Level 98 mmol/L (98-107) 102 mmol/L (98-107) 103 mmol/L (98-107) Carbon Dioxide Level 21 mmol/L (21-32) 29 mmol/L (21-32) 29 mmol/L (21-32) Anion Gap 14 (6-14) 5 (6-14) 4 (6-14) Blood Urea Nitrogen 7 mg/dL (7-20) 7 mg/dL (7-20) 5 mg/dL (7-20) Creatinine 0.6 mg/dL (0.6-1.0) 0.5 mg/dL (0.6-1.0) 0.6 mg/dL (0.6-1.0) Estimated GFR (Cockcroft-Gault) 106.3 131.1 106.3 Glucose Level 122 mg/dL (70-99) 112 mg/dL (70-99) 118 mg/dL (70-99) Calcium Level 8.9 mg/dL (8.5-10.1) 8.5 mg/dL (8.5-10.1) 8.4 mg/dL (8.5-10.1) Iron Level 13 ug/dL (50-170) Total Iron Binding Capacity 632 ug/dL (250-450) Iron Saturation 2 % (15-34) Nasal Screen MRSA (PCR) Negative (Negative) BUN/Creatinine Ratio 14 (6-20) Total Bilirubin 0.7 mg/dL (0.2-1.0) Aspartate Amino Transf (AST/SGOT) 208 U/L (15-37) Alanine Aminotransferase (ALT/SGPT) 112 U/L (14-59) Alkaline Phosphatase 201 U/L (46-116) Total Protein 6.7 g/dL (6.4-8.2) Albumin 3.0 g/dL (3.4-5.0) Albumin/Globulin Ratio 0.8 (1.0-1.7) Laboratory Tests Test 03/07/18 03:50 White Blood Count 11.2 x10^3/uL (4.0-11.0) Red Blood Count 3.79 x10^6/uL (3.50-5.40) Hemoglobin 7.5 g/dL (12.0-15.5) Hematocrit 24.8 % (36.0-47.0) Mean Corpuscular Volume 66 fL (79-100) Mean Corpuscular Hemoglobin 20 pg (25-35) Mean Corpuscular Hemoglobin Concent 30 g/dL (31-37) Red Cell Distribution Width 20.3 % (11.5-14.5) Platelet Count 365 x10^3/uL (140-400) Neutrophils (%) (Auto) 81 % (31-73) Lymphocytes (%) (Auto) 11 % (24-48) Monocytes (%) (Auto) 7 % (0-9) Eosinophils (%) (Auto) 0 % (0-3) Basophils (%) (Auto) 1 % (0-3) Neutrophils # (Auto) 9.1 x10^3uL (1.8-7.7) Lymphocytes # (Auto) 1.2 x10^3/uL (1.0-4.8) Monocytes # (Auto) 0.8 x10^3/uL (0.0-1.1) Eosinophils # (Auto) 0.0 x10^3/uL (0.0-0.7) Basophils # (Auto) 0.1 x10^3/uL (0.0-0.2) Sodium Level 136 mmol/L (136-145) Potassium Level 3.4 mmol/L (3.5-5.1) Chloride Level 103 mmol/L (98-107) Carbon Dioxide Level 29 mmol/L (21-32) Anion Gap 4 (6-14) Blood Urea Nitrogen 5 mg/dL (7-20) Creatinine 0.6 mg/dL (0.6-1.0) Estimated GFR (Cockcroft-Gault) 106.3 Glucose Level 118 mg/dL (70-99) Calcium Level 8.4 mg/dL (8.5-10.1) Medications Current Medications Morphine Sulfate (Morphine Sulfate) 4 mg 1X ONCE IV Last administered on at 16:49; Start 03/05/18 at 16:30; Stop 03/05/18 at 16:31; Status DC Ondansetron HCl (Zofran) 4 mg 1X ONCE IV Last administered on 03/05/18at 16:49 ; Start 03/05/18 at 16:30; Stop 03/05/18 at 16:31; Status DC Morphine Sulfate (Morphine Sulfate) 4 mg 1X ONCE IV Last administered on at 17:15; Start 03/05/18 at 17:15; Stop 03/05/18 at 17:16; Status DC Ondansetron HCl (Zofran) 4 mg PRN Q8HRS PRN IV NAUSEA/VOMITING; Start 03/05/18 at 18:00; Stop 03/06/18 at 17:59; Status DC Morphine Sulfate (Morphine Sulfate) 4 mg PRN Q2HR PRN IV PAIN Last administered on 03/06/18at 10:37; Start 03/05/18 at 18:00; Stop 03/06/18 at 17:59 ; Status DC Acetaminophen (Tylenol) 650 mg PRN Q4HRS PRN PO FEVER; Start 03/05/18 at 18:00 ; Stop 03/06/18 at 17:59; Status DC Metoprolol Succinate (Toprol Xl) 25 mg 1X ONCE PO Last administered on at 19:04; Start 03/05/18 at 18:30; Stop 03/05/18 at 18:38; Status DC Sodium Chloride 1,000 ml @ 100 mls/hr 1X ONCE IV Last administered on at 21:37; Start 03/05/18 at 18:45; Stop 03/06/18 at 04:44; Status DC Polysaccharide Iron Complex (Niferex 150) 150 mg DAILY PO Last administered on 03/06/18at 08:02; Start 03/06/18 at 09:00 Amlodipine Besylate (Norvasc) 10 mg DAILY PO Last administered on 03/06/18at 08: 03; Start 03/05/18 at 23:00 Furosemide (Lasix) 20 mg DAILY PO Last administered on 03/06/18at 08:03; Start 03/06/18 at 09:00 Ondansetron HCl (Zofran) 4 mg PRN Q6HRS PRN IV NAUSEA/VOMITING; Start 03/06/18 at 08:45; Stop 03/07/18 at 08:44; Status DC Morphine Sulfate (Morphine Sulfate) 1 mg PRN Q10MIN PRN IV SEVERE PAIN; Start 03/06/18 at 08:45; Stop 03/07/18 at 08:44; Status DC Ringer's Solution 1,000 ml @ 30 mls/hr Q24H IV Last administered on 03/06/18at 11:16; Start 03/06/18 at 08:39; Stop 03/06/18 at 20:38; Status DC Lidocaine HCl (Xylocaine-Mpf 1% 2ml Vial) 2 ml 1X PRN PRN ID IV START; Start at 08:45; Stop 03/07/18 at 08:44; Status DC Hydromorphone HCl (Dilaudid) 0.5 mg PRN Q10MIN PRN IV SEV PAIN, Second choice; Start 03/06/18 at 08:45; Stop 03/07/18 at 08:44; Status DC Prochlorperazine Edisylate (Compazine) 5 mg PACU PRN PRN IV NAUSEA, MRX1; Start 03/06/18 at 08:45; Stop 03/07/18 at 08:44; Status DC Bupivacaine HCl/ Epinephrine Bitart (Marcaine-Epi 0.25%-[id number]) 50 ml STK-MED ONCE .ROUTE ; Start 03/06/18 at 07:54; Stop 03/06/18 at 08:56; Status DC Bupivacaine HCl (Marcaine 0.25%) 50 ml STK-MED ONCE .ROUTE ; Start 03/06/18 at 07:54; Stop 03/06/18 at 08:56; Status DC Lidocaine HCl (Xylocaine 1% Pf 30ml Vial) 30 ml STK-MED ONCE .ROUTE ; Start at 07:55; Stop 03/06/18 at 08:56; Status DC Scopolamine (Transderm-Scop) 1 patch STK-MED ONCE TD ; Start 03/06/18 at 11:26; Stop 03/06/18 at 11:27; Status DC Scopolamine (Transderm-Scop) 1 patch 1X ONCE TD Last administered on at 11:32; Start 03/06/18 at 11:30; Stop 03/06/18 at 11:31; Status DC Propofol 20 ml @ As Directed STK-MED ONCE IV ; Start 03/06/18 at 11:39; Stop at 11:40; Status DC Lidocaine HCl (Lidocaine Pf 2% Vial) 5 ml STK-MED ONCE .ROUTE ; Start 03/06/18 at 11:39; Stop 03/06/18 at 11:40; Status DC Rocuronium [place] (Zemuron) 50 mg STK-MED ONCE .ROUTE ; Start 03/06/18 at 11:39 ; Stop 03/06/18 at 11:41; Status DC Fentanyl Citrate (Fentanyl 2ml Vial) 100 mcg STK-MED ONCE .ROUTE ; Start at 11:40; Stop 03/06/18 at 11:41; Status DC Midazolam HCl (Versed) 2 mg STK-MED ONCE .ROUTE ; Start 03/06/18 at 11:40; Stop 03/06/18 at 11:41; Status DC Cefazolin Sodium/ Dextrose 50 ml @ As Directed STK-MED ONCE IV ; Start 03/06/18 at 11:40; Stop 03/06/18 at 11:42; Status DC Cefazolin Sodium/ Dextrose 50 ml @ 100 mls/hr 1X PREOP PRN IV Pre Op Dose Last administered on 03/06/18at 12:00; Start 03/06/18 at 12:30; Stop 03/07/18 at 12:29 Morphine Sulfate 5 mg/Ketorolac Tromethamine 30 mg/Ropivacaine 60 ml/ Epinephrine HCl 0.5 mg/Sodium Chloride 100 ml @ 100 mls/hr 1X ONCE INT ART Last administered on 03/06/18at 13:11; Start 03/06/18 at 12:30; Stop 03/06/18 at 13:29; Status DC Cefazolin Sodium/ Dextrose 50 ml @ 100 mls/hr Q6H IV Last administered on 03/07at 06:16; Start 03/06/18 at 19:00; Stop 03/07/18 at 07:29; Status DC Ketorolac Tromethamine (Toradol 30mg Vial) 30 mg PRN Q6HRS PRN IV INFLAMMATION ; Start 03/06/18 at 12:30; Stop 03/11/18 at 12:29 Diphenhydramine HCl (Benadryl) 50 mg STK-MED ONCE .ROUTE ; Start 03/06/18 at 12: 21; Stop 03/06/18 at 12:22; Status DC Dexamethasone Sodium Phosphate (Decadron) 20 mg STK-MED ONCE .ROUTE ; Start at 12:21; Stop 03/06/18 at 12:22; Status DC Famotidine (Pepcid Vial) 20 mg STK-MED ONCE .ROUTE ; Start 03/06/18 at 12:21; Stop 03/06/18 at 12:23; Status DC Ondansetron HCl (Zofran) 4 mg STK-MED ONCE .ROUTE ; Start 03/06/18 at 12:21; Stop 03/06/18 at 12:23; Status DC Neostigmine Methylsulfate (Neostigmine Methylsulfate) 5 mg STK-MED ONCE .ROUTE ; Start 03/06/18 at 12:55; Stop 03/06/18 at 12:56; Status DC Glycopyrrolate (Robinul) 1 mg STK-MED ONCE .ROUTE ; Start 03/06/18 at 12:55; Stop 03/06/18 at 12:56; Status DC Ketorolac Tromethamine (Toradol For Or Only) 30 mg STK-MED ONCE INJ ; Start at 12:55; Stop 03/06/18 at 12:56; Status DC Morphine Sulfate (Morphine Sulfate) 10 mg STK-MED ONCE .ROUTE ; Start 03/06/18 at 12:57; Stop 03/06/18 at 12:59; Status DC Rocuronium [place] (Zemuron) 50 mg STK-MED ONCE .ROUTE ; Start 03/06/18 at 13:21 ; Stop 03/06/18 at 13:22; Status DC Sevoflurane (Ultane) 90 ml STK-MED ONCE IH ; Start 03/06/18 at 14:49; Stop 03/06 at 14:50; Status DC Propofol 20 ml @ As Directed STK-MED ONCE IV ; Start 03/06/18 at 14:57; Stop at 14:59; Status DC Morphine Sulfate (Morphine Sulfate) 4 mg PRN Q2HR PRN IV PAIN Last administered on 03/07/18at 04:38; Start 03/06/18 at 18:15 Active Scripts Active Reported Bupropion Hcl Sr (Bupropion Hcl) 150 Mg Tablet.er 150 Mg PO Wellbutrin Sr (Bupropion Hcl) 100 Mg Tablet.er Unknown Dose PO DAILY Amlodipine Besylate 10 Mg Tablet 10 Mg PO DAILY Lasix (Furosemide) 40 Mg Tablet 40 Mg PO DAILY Vitals/I & O Vital Sign - Last 24 Hours 03/06/18 03/06/18 03/06/18 03/06/18 15:18 15:18 15:33 15:48 Temp 99.5 99.5 Pulse 96 94 96 Resp 16 16 16 B/P (MAP) 187/72 176/83 173/77 Pulse Ox 98 99 99 O2 Delivery Mask Simple Mask Simple Mask Simple Mask O2 Flow Rate 10 10 10 10 03/06/18 03/06/18 03/06/18 03/06/18 16:03 16:18 16:33 16:48 Temp 100 100.0 Pulse 106 102 100 102 Resp 22 16 17 16 B/P (MAP) 184/82 172/84 169/85 168/84 Pulse Ox 97 95 95 96 O2 Delivery Room Air Room Air Room Air Room Air 03/06/18 03/06/18 03/06/18 03/06/18 17:15 17:45 18:15 18:18 Temp 100.2 100.2 Pulse 100 103 108 Resp 16 B/P (MAP) 123/102 (109) 132/82 (99) 125/74 (91) Pulse Ox 93 96 97 O2 Delivery Room Air Room Air Room Air Room Air 03/06/18 03/06/18 03/06/18 03/06/18 19:15 19:45 19:50 20:15 Temp 99.0 98.9 98.4 99.0 98.9 98.4 Pulse 99 109 95 Resp 18 20 20 B/P (MAP) 125/80 (95) 144/71 (95) 151/91 (111) Pulse Ox 96 95 96 O2 Delivery Room Air Room Air Room Air Room Air 03/06/18 03/06/18 03/06/18 03/07/18 20:45 21:00 23:20 00:19 Temp 98.6 98.9 98.6 98.9 Pulse 87 109 Resp 20 18 B/P (MAP) 149/91 (110) 149/80 (103) Pulse Ox 96 96 O2 Delivery Room Air Room Air Room Air Room Air 03/07/18 03/07/18 03/07/18 03/07/18 03:29 04:38 05:33 07:00 Temp 98.8 98.2 98.8 98.2 Pulse 100 109 Resp 18 18 B/P (MAP) 134/84 (101) 152/94 (113) Pulse Ox 97 97 O2 Delivery Room Air Room Air Room Air Room Air Intake and Output 03/06/18 03/06/18 03/07/18 15:00 23:00 07:00 Intake Total 1970 ml 720 ml Output Total 1200 ml Balance 770 ml 720 ml DIETER LEE III DO Mar 07, 2018 11:05
[2018-03-07] MEDS: amLODIPine BESYLATE 10 MG TABLET PO SCH (11:09)
[2018-03-07] MEDS: IRON POLYSACCHARIDE COMPLEX 150 MG CAPSULE PO SCH (11:09)
[2018-03-07] MEDS: FUROSEMIDE 20 MG TABLET PO SCH (11:09)
[2018-03-07] MEDS: oxyCODONE/APAP 10/325 1 TAB TABLET PO PRN ×2 (12:08→17:43)
[2018-03-07 15:00] VITALS: BP 141/86
[2018-03-07 19:00] VITALS: BP 152/86
[2018-03-07 23:00] VITALS: BP 142/77
[2018-03-08] MEDS: MORPHINE SULFATE 4 MG/ML VIAL. IV PRN (00:16)
[2018-03-08 03:00] VITALS: BP 134/82
[2018-03-08] MEDS: oxyCODONE/APAP 10/325 1 TAB TABLET PO PRN ×2 (05:42→11:46)
[2018-03-08 07:00] VITALS: BP 145/90
[2018-03-08 07:02] LABS: CALCIUM 8.3 mg/dL (8.5-10.1); CREATININE 0.7 mg/dL (0.6-1.0); GFR 88.9
[2018-03-08 07:06] LABS: BASO # 0.1 x10^3/uL (0.0-0.2); BASO % 1 % (0-3); EOS # 0.1 x10^3/uL (0.0-0.7); EOS % 2 % (0-3); HEMATOCRIT 24.5 % (36.0-47.0); HEMOGLOBIN 7.4 g/dL (12.0-15.5); LYMPH # 2.1 x10^3/uL (1.0-4.8); LYMPH % 24 % (24-48); MEAN CORPUSCULAR HEMOGLOBIN 20 pg (25-35); MEAN CORPUSCULAR HGB CONC 30 g/dL (31-37); MEAN CORPUSCULAR VOLUME 65 fL (79-100); MONO # 0.5 x10^3/uL (0.0-1.1); MONO % 5 % (0-9); NEUT % 68 % (31-73); PLATELET COUNT 468 x10^3/uL (140-400); RED BLOOD COUNT 3.74 x10^6/uL (3.50-5.40); RED CELL DISTRIBUTION WIDTH 20.5 % (11.5-14.5); WHITE BLOOD COUNT 8.7 x10^3/uL (4.0-11.0)
[2018-03-08] MEDS: amLODIPine BESYLATE 10 MG TABLET PO SCH (08:53)
[2018-03-08] MEDS: IRON POLYSACCHARIDE COMPLEX 150 MG CAPSULE PO SCH (08:54)
[2018-03-08] MEDS: FUROSEMIDE 20 MG TABLET PO SCH (08:54)
[2018-03-08] MEDS ORDERED: CYCLOBENZAPRINE 10 MG TABLET. PO PRN (09:30)
--- NOTE | 2018-03-08 09:39 | PDOC ---
ORTHO PROGRESS NOTES Subjective Pain better, no new complaints. Feels ready to go home Vitals Vital Signs Date Time Temp Pulse Resp B/P (MAP) Pulse Ox O2 Delivery O2 Flow Rate FiO2 03/08/18 08:53 94 145/90 03/08/18 07:00 98.9 18 94 Room Air 98.9 03/07/18 08:00 10.0 Labs Laboratory Tests Test 03/07/18 03:50 03/08/18 06:40 White Blood Count 11.2 x10^3/uL (4.0-11.0) 8.7 x10^3/uL (4.0-11.0) Red Blood Count 3.79 x10^6/uL (3.50-5.40) 3.74 x10^6/uL (3.50-5.40) Hemoglobin 7.5 g/dL (12.0-15.5) 7.4 g/dL (12.0-15.5) Hematocrit 24.8 % (36.0-47.0) 24.5 % (36.0-47.0) Mean Corpuscular Volume 66 fL (79-100) 65 fL (79-100) Mean Corpuscular Hemoglobin 20 pg (25-35) 20 pg (25-35) Mean Corpuscular Hemoglobin Concent 30 g/dL (31-37) 30 g/dL (31-37) Red Cell Distribution Width 20.3 % (11.5-14.5) 20.5 % (11.5-14.5) Platelet Count 365 x10^3/uL (140-400) 468 x10^3/uL (140-400) Neutrophils (%) (Auto) 81 % (31-73) 68 % (31-73) Lymphocytes (%) (Auto) 11 % (24-48) 24 % (24-48) Monocytes (%) (Auto) 7 % (0-9) 5 % (0-9) Eosinophils (%) (Auto) 0 % (0-3) 2 % (0-3) Basophils (%) (Auto) 1 % (0-3) 1 % (0-3) Neutrophils # (Auto) 9.1 x10^3uL (1.8-7.7) 6.0 x10^3uL (1.8-7.7) Lymphocytes # (Auto) 1.2 x10^3/uL (1.0-4.8) 2.1 x10^3/uL (1.0-4.8) Monocytes # (Auto) 0.8 x10^3/uL (0.0-1.1) 0.5 x10^3/uL (0.0-1.1) Eosinophils # (Auto) 0.0 x10^3/uL (0.0-0.7) 0.1 x10^3/uL (0.0-0.7) Basophils # (Auto) 0.1 x10^3/uL (0.0-0.2) 0.1 x10^3/uL (0.0-0.2) Sodium Level 136 mmol/L (136-145) 134 mmol/L (136-145) Potassium Level 3.4 mmol/L (3.5-5.1) 3.0 mmol/L (3.5-5.1) Chloride Level 103 mmol/L (98-107) 98 mmol/L (98-107) Carbon Dioxide Level 29 mmol/L (21-32) 26 mmol/L (21-32) Anion Gap 4 (6-14) 10 (6-14) Blood Urea Nitrogen 5 mg/dL (7-20) 5 mg/dL (7-20) Creatinine 0.6 mg/dL (0.6-1.0) 0.7 mg/dL (0.6-1.0) Estimated GFR (Cockcroft-Gault) 106.3 88.9 Glucose Level 118 mg/dL (70-99) 147 mg/dL (70-99) Calcium Level 8.4 mg/dL (8.5-10.1) 8.3 mg/dL (8.5-10.1) Laboratory Tests Test 03/08/18 06:40 White Blood Count 8.7 x10^3/uL (4.0-11.0) Red Blood Count 3.74 x10^6/uL (3.50-5.40) Hemoglobin 7.4 g/dL (12.0-15.5) Hematocrit 24.5 % (36.0-47.0) Mean Corpuscular Volume 65 fL (79-100) Mean Corpuscular Hemoglobin 20 pg (25-35) Mean Corpuscular Hemoglobin Concent 30 g/dL (31-37) Red Cell Distribution Width 20.5 % (11.5-14.5) Platelet Count 468 x10^3/uL (140-400) Neutrophils (%) (Auto) 68 % (31-73) Lymphocytes (%) (Auto) 24 % (24-48) Monocytes (%) (Auto) 5 % (0-9) Eosinophils (%) (Auto) 2 % (0-3) Basophils (%) (Auto) 1 % (0-3) Neutrophils # (Auto) 6.0 x10^3uL (1.8-7.7) Lymphocytes # (Auto) 2.1 x10^3/uL (1.0-4.8) Monocytes # (Auto) 0.5 x10^3/uL (0.0-1.1) Eosinophils # (Auto) 0.1 x10^3/uL (0.0-0.7) Basophils # (Auto) 0.1 x10^3/uL (0.0-0.2) Sodium Level 134 mmol/L (136-145) Potassium Level 3.0 mmol/L (3.5-5.1) Chloride Level 98 mmol/L (98-107) Carbon Dioxide Level 26 mmol/L (21-32) Anion Gap 10 (6-14) Blood Urea Nitrogen 5 mg/dL (7-20) Creatinine 0.7 mg/dL (0.6-1.0) Estimated GFR (Cockcroft-Gault) 88.9 Glucose Level 147 mg/dL (70-99) Calcium Level 8.3 mg/dL (8.5-10.1) Notes A and A in bed RUE: remains NVI, arm in sling Assessment and Plan ok to go home, f/u 2 wks NWB. arm to remain in sling KATHRYN GONZALEZ II, MD Mar 08, 2018 09:39
[2018-03-08 11:00] VITALS: BP 130/85
--- NOTE | 2018-03-08 13:29 | PDOC ---
PROGRESS NOTES Chief Complaint Chief Complaint humerus fx Hx of SVT, HTN History of Present Illness History of Present Illness pt seen and examined Dressing c/d/i Pt ambulating DW RN VSS Vitals Vitals Vital Signs Date Time Temp Pulse Resp B/P (MAP) Pulse Ox O2 Delivery O2 Flow Rate FiO2 03/08/18 11:46 17 98 Room Air 03/08/18 11:00 99.1 106 130/85 (100) 99.1 03/07/18 08:00 10.0 Physical Exam General: Alert, Oriented X3 Heart: Regular rate, Normal S1, Normal S2, No murmurs Lungs: Clear Abdomen: Normal bowel sounds, Soft, No tenderness Extremities: No clubbing, No cyanosis, No edema, Normal pulses Skin: No rashes, No breakdown, Other (R humerus ORIF) Labs LABS Laboratory Tests Test 03/08/18 06:40 White Blood Count 8.7 x10^3/uL (4.0-11.0) Red Blood Count 3.74 x10^6/uL (3.50-5.40) Hemoglobin 7.4 g/dL (12.0-15.5) Hematocrit 24.5 % (36.0-47.0) Mean Corpuscular Volume 65 fL (79-100) Mean Corpuscular Hemoglobin 20 pg (25-35) Mean Corpuscular Hemoglobin Concent 30 g/dL (31-37) Red Cell Distribution Width 20.5 % (11.5-14.5) Platelet Count 468 x10^3/uL (140-400) Neutrophils (%) (Auto) 68 % (31-73) Lymphocytes (%) (Auto) 24 % (24-48) Monocytes (%) (Auto) 5 % (0-9) Eosinophils (%) (Auto) 2 % (0-3) Basophils (%) (Auto) 1 % (0-3) Neutrophils # (Auto) 6.0 x10^3uL (1.8-7.7) Lymphocytes # (Auto) 2.1 x10^3/uL (1.0-4.8) Monocytes # (Auto) 0.5 x10^3/uL (0.0-1.1) Eosinophils # (Auto) 0.1 x10^3/uL (0.0-0.7) Basophils # (Auto) 0.1 x10^3/uL (0.0-0.2) Sodium Level 134 mmol/L (136-145) Potassium Level 3.0 mmol/L (3.5-5.1) Chloride Level 98 mmol/L (98-107) Carbon Dioxide Level 26 mmol/L (21-32) Anion Gap 10 (6-14) Blood Urea Nitrogen 5 mg/dL (7-20) Creatinine 0.7 mg/dL (0.6-1.0) Estimated GFR (Cockcroft-Gault) 88.9 Glucose Level 147 mg/dL (70-99) Calcium Level 8.3 mg/dL (8.5-10.1) Review of Systems Review of Systems co muscle spasm no co BRUCE or fever Assessment and Plan Assessmemt and Plan Assessment: humerus fx Hx of SVT, HTN Plan: supportive custodial meds Flexeril Probable DC today if ok with subspecialty Comment Review of Relevant I have reviewed the following items gladys (where applicable) has been applied. Labs Laboratory Tests Test 03/07/18 03:50 03/08/18 06:40 White Blood Count 11.2 x10^3/uL (4.0-11.0) 8.7 x10^3/uL (4.0-11.0) Red Blood Count 3.79 x10^6/uL (3.50-5.40) 3.74 x10^6/uL (3.50-5.40) Hemoglobin 7.5 g/dL (12.0-15.5) 7.4 g/dL (12.0-15.5) Hematocrit 24.8 % (36.0-47.0) 24.5 % (36.0-47.0) Mean Corpuscular Volume 66 fL (79-100) 65 fL (79-100) Mean Corpuscular Hemoglobin 20 pg (25-35) 20 pg (25-35) Mean Corpuscular Hemoglobin Concent 30 g/dL (31-37) 30 g/dL (31-37) Red Cell Distribution Width 20.3 % (11.5-14.5) 20.5 % (11.5-14.5) Platelet Count 365 x10^3/uL (140-400) 468 x10^3/uL (140-400) Neutrophils (%) (Auto) 81 % (31-73) 68 % (31-73) Lymphocytes (%) (Auto) 11 % (24-48) 24 % (24-48) Monocytes (%) (Auto) 7 % (0-9) 5 % (0-9) Eosinophils (%) (Auto) 0 % (0-3) 2 % (0-3) Basophils (%) (Auto) 1 % (0-3) 1 % (0-3) Neutrophils # (Auto) 9.1 x10^3uL (1.8-7.7) 6.0 x10^3uL (1.8-7.7) Lymphocytes # (Auto) 1.2 x10^3/uL (1.0-4.8) 2.1 x10^3/uL (1.0-4.8) Monocytes # (Auto) 0.8 x10^3/uL (0.0-1.1) 0.5 x10^3/uL (0.0-1.1) Eosinophils # (Auto) 0.0 x10^3/uL (0.0-0.7) 0.1 x10^3/uL (0.0-0.7) Basophils # (Auto) 0.1 x10^3/uL (0.0-0.2) 0.1 x10^3/uL (0.0-0.2) Sodium Level 136 mmol/L (136-145) 134 mmol/L (136-145) Potassium Level 3.4 mmol/L (3.5-5.1) 3.0 mmol/L (3.5-5.1) Chloride Level 103 mmol/L (98-107) 98 mmol/L (98-107) Carbon Dioxide Level 29 mmol/L (21-32) 26 mmol/L (21-32) Anion Gap 4 (6-14) 10 (6-14) Blood Urea Nitrogen 5 mg/dL (7-20) 5 mg/dL (7-20) Creatinine 0.6 mg/dL (0.6-1.0) 0.7 mg/dL (0.6-1.0) Estimated GFR (Cockcroft-Gault) 106.3 88.9 Glucose Level 118 mg/dL (70-99) 147 mg/dL (70-99) Calcium Level 8.4 mg/dL (8.5-10.1) 8.3 mg/dL (8.5-10.1) Laboratory Tests Test 03/08/18 06:40 White Blood Count 8.7 x10^3/uL (4.0-11.0) Red Blood Count 3.74 x10^6/uL (3.50-5.40) Hemoglobin 7.4 g/dL (12.0-15.5) Hematocrit 24.5 % (36.0-47.0) Mean Corpuscular Volume 65 fL (79-100) Mean Corpuscular Hemoglobin 20 pg (25-35) Mean Corpuscular Hemoglobin Concent 30 g/dL (31-37) Red Cell Distribution Width 20.5 % (11.5-14.5) Platelet Count 468 x10^3/uL (140-400) Neutrophils (%) (Auto) 68 % (31-73) Lymphocytes (%) (Auto) 24 % (24-48) Monocytes (%) (Auto) 5 % (0-9) Eosinophils (%) (Auto) 2 % (0-3) Basophils (%) (Auto) 1 % (0-3) Neutrophils # (Auto) 6.0 x10^3uL (1.8-7.7) Lymphocytes # (Auto) 2.1 x10^3/uL (1.0-4.8) Monocytes # (Auto) 0.5 x10^3/uL (0.0-1.1) Eosinophils # (Auto) 0.1 x10^3/uL (0.0-0.7) Basophils # (Auto) 0.1 x10^3/uL (0.0-0.2) Sodium Level 134 mmol/L (136-145) Potassium Level 3.0 mmol/L (3.5-5.1) Chloride Level 98 mmol/L (98-107) Carbon Dioxide Level 26 mmol/L (21-32) Anion Gap 10 (6-14) Blood Urea Nitrogen 5 mg/dL (7-20) Creatinine 0.7 mg/dL (0.6-1.0) Estimated GFR (Cockcroft-Gault) 88.9 Glucose Level 147 mg/dL (70-99) Calcium Level 8.3 mg/dL (8.5-10.1) Medications Current Medications Morphine Sulfate (Morphine Sulfate) 4 mg 1X ONCE IV Last administered on 16:49; Start 03/05/18 at 16:30; Stop 03/05/18 at 16:31; Status DC Ondansetron HCl (Zofran) 4 mg 1X ONCE IV Last administered on 03/05/18at 16:49 ; Start 03/05/18 at 16:30; Stop 03/05/18 at 16:31; Status DC Morphine Sulfate (Morphine Sulfate) 4 mg 1X ONCE IV Last administered on at 17:15; Start 03/05/18 at 17:15; Stop 03/05/18 at 17:16; Status DC Ondansetron HCl (Zofran) 4 mg PRN Q8HRS PRN IV NAUSEA/VOMITING; Start 03/05/18 at 18:00; Stop 03/06/18 at 17:59; Status DC Morphine Sulfate (Morphine Sulfate) 4 mg PRN Q2HR PRN IV PAIN Last administered on 03/06/18at 10:37; Start 03/05/18 at 18:00; Stop 03/06/18 at 17:59 ; Status DC Acetaminophen (Tylenol) 650 mg PRN Q4HRS PRN PO FEVER; Start 03/05/18 at 18:00 ; Stop 03/06/18 at 17:59; Status DC Metoprolol Succinate (Toprol Xl) 25 mg 1X ONCE PO Last administered on at 19:04; Start 03/05/18 at 18:30; Stop 03/05/18 at 18:38; Status DC Sodium Chloride 1,000 ml @ 100 mls/hr 1X ONCE IV Last administered on at 21:37; Start 03/05/18 at 18:45; Stop 03/06/18 at 04:44; Status DC Polysaccharide Iron Complex (Niferex 150) 150 mg DAILY PO Last administered on 03/08/18at 08:54; Start 03/06/18 at 09:00 Amlodipine Besylate (Norvasc) 10 mg DAILY PO Last administered on 03/08/18at 08: 53; Start 03/05/18 at 23:00 Furosemide (Lasix) 20 mg DAILY PO Last administered on 03/08/18at 08:54; Start 03/06/18 at 09:00 Ondansetron HCl (Zofran) 4 mg PRN Q6HRS PRN IV NAUSEA/VOMITING; Start 03/06/18 at 08:45; Stop 03/07/18 at 08:44; Status DC Morphine Sulfate (Morphine Sulfate) 1 mg PRN Q10MIN PRN IV SEVERE PAIN; Start 03/06/18 at 08:45; Stop 03/07/18 at 08:44; Status DC Ringer's Solution 1,000 ml @ 30 mls/hr Q24H IV Last administered on 03/06/18at 11:16; Start 03/06/18 at 08:39; Stop 03/06/18 at 20:38; Status DC Lidocaine HCl (Xylocaine-Mpf 1% 2ml Vial) 2 ml 1X PRN PRN ID IV START; Start at 08:45; Stop 03/07/18 at 08:44; Status DC Hydromorphone HCl (Dilaudid) 0.5 mg PRN Q10MIN PRN IV SEV PAIN, Second choice; Start 03/06/18 at 08:45; Stop 03/07/18 at 08:44; Status DC Prochlorperazine Edisylate (Compazine) 5 mg PACU PRN PRN IV NAUSEA, MRX1; Start 03/06/18 at 08:45; Stop 03/07/18 at 08:44; Status DC Bupivacaine HCl/ Epinephrine Bitart (Marcaine-Epi 0.25%-[id number]) 50 ml STK-MED ONCE .ROUTE ; Start 03/06/18 at 07:54; Stop 03/06/18 at 08:56; Status DC Bupivacaine HCl (Marcaine 0.25%) 50 ml STK-MED ONCE .ROUTE ; Start 03/06/18 at 07:54; Stop 03/06/18 at 08:56; Status DC Lidocaine HCl (Xylocaine 1% Pf 30ml Vial) 30 ml STK-MED ONCE .ROUTE ; Start at 07:55; Stop 03/06/18 at 08:56; Status DC Scopolamine (Transderm-Scop) 1 patch STK-MED ONCE TD ; Start 03/06/18 at 11:26; Stop 03/06/18 at 11:27; Status DC Scopolamine (Transderm-Scop) 1 patch 1X ONCE TD Last administered on at 11:32; Start 03/06/18 at 11:30; Stop 03/06/18 at 11:31; Status DC Propofol 20 ml @ As Directed STK-MED ONCE IV ; Start 03/06/18 at 11:39; Stop at 11:40; Status DC Lidocaine HCl (Lidocaine Pf 2% Vial) 5 ml STK-MED ONCE .ROUTE ; Start 03/06/18 at 11:39; Stop 03/06/18 at 11:40; Status DC Rocuronium [place] (Zemuron) 50 mg STK-MED ONCE .ROUTE ; Start 03/06/18 at 11:39 ; Stop 03/06/18 at 11:41; Status DC Fentanyl Citrate (Fentanyl 2ml Vial) 100 mcg STK-MED ONCE .ROUTE ; Start at 11:40; Stop 03/06/18 at 11:41; Status DC Midazolam HCl (Versed) 2 mg STK-MED ONCE .ROUTE ; Start 03/06/18 at 11:40; Stop 03/06/18 at 11:41; Status DC Cefazolin Sodium/ Dextrose 50 ml @ As Directed STK-MED ONCE IV ; Start 03/06/18 at 11:40; Stop 03/06/18 at 11:42; Status DC Cefazolin Sodium/ Dextrose 50 ml @ 100 mls/hr 1X PREOP PRN IV Pre Op Dose Last administered on 03/06/18at 12:00; Start 03/06/18 at 12:30; Stop 03/07/18 at 12:29; Status DC Morphine Sulfate 5 mg/Ketorolac Tromethamine 30 mg/Ropivacaine 60 ml/ Epinephrine HCl 0.5 mg/Sodium Chloride 100 ml @ 100 mls/hr 1X ONCE INT ART Last administered on 03/06/18at 13:11; Start 03/06/18 at 12:30; Stop 03/06/18 at 13:29; Status DC Cefazolin Sodium/ Dextrose 50 ml @ 100 mls/hr Q6H IV Last administered on 03/07at 06:16; Start 03/06/18 at 19:00; Stop 03/07/18 at 07:29; Status DC Ketorolac Tromethamine (Toradol 30mg Vial) 30 mg PRN Q6HRS PRN IV INFLAMMATION ; Start 03/06/18 at 12:30; Stop 03/11/18 at 12:29 Diphenhydramine HCl (Benadryl) 50 mg STK-MED ONCE .ROUTE ; Start 03/06/18 at 12: 21; Stop 03/06/18 at 12:22; Status DC Dexamethasone Sodium Phosphate (Decadron) 20 mg STK-MED ONCE .ROUTE ; Start at 12:21; Stop 03/06/18 at 12:22; Status DC Famotidine (Pepcid Vial) 20 mg STK-MED ONCE .ROUTE ; Start 03/06/18 at 12:21; Stop 03/06/18 at 12:23; Status DC Ondansetron HCl (Zofran) 4 mg STK-MED ONCE .ROUTE ; Start 03/06/18 at 12:21; Stop 03/06/18 at 12:23; Status DC Neostigmine Methylsulfate (Neostigmine Methylsulfate) 5 mg STK-MED ONCE .ROUTE ; Start 03/06/18 at 12:55; Stop 03/06/18 at 12:56; Status DC Glycopyrrolate (Robinul) 1 mg STK-MED ONCE .ROUTE ; Start 03/06/18 at 12:55; Stop 03/06/18 at 12:56; Status DC Ketorolac Tromethamine (Toradol For Or Only) 30 mg STK-MED ONCE INJ ; Start at 12:55; Stop 03/06/18 at 12:56; Status DC Morphine Sulfate (Morphine Sulfate) 10 mg STK-MED ONCE .ROUTE ; Start 03/06/18 at 12:57; Stop 03/06/18 at 12:59; Status DC Rocuronium [place] (Zemuron) 50 mg STK-MED ONCE .ROUTE ; Start 03/06/18 at 13:21 ; Stop 03/06/18 at 13:22; Status DC Sevoflurane (Ultane) 90 ml STK-MED ONCE IH ; Start 03/06/18 at 14:49; Stop 03/06 at 14:50; Status DC Propofol 20 ml @ As Directed STK-MED ONCE IV ; Start 03/06/18 at 14:57; Stop at 14:59; Status DC Morphine Sulfate (Morphine Sulfate) 4 mg PRN Q2HR PRN IV PAIN Last administered on 03/08/18at 00:16; Start 03/06/18 at 18:15 Oxycodone/ Acetaminophen (Percocet 10/325) 1 tab PRN Q6HRS PRN PO PAIN Last administered on 03/08/18at 11:46; Start 03/07/18 at 11:30 Cyclobenzaprine HCl (Flexeril) 10 mg PRN Q6HRS PRN PO MUSCLE SPASMS Last administered on 03/08/18at 09:52; Start 03/08/18 at 09:30 Active Scripts Active Reported Bupropion Hcl Sr (Bupropion Hcl) 150 Mg Tablet.er 150 Mg PO Wellbutrin Sr (Bupropion Hcl) 100 Mg Tablet.er Unknown Dose PO DAILY Amlodipine Besylate 10 Mg Tablet 10 Mg PO DAILY Lasix (Furosemide) 40 Mg Tablet 40 Mg PO DAILY Vitals/I & O Vital Sign - Last 24 Hours 03/07/18 03/07/18 03/07/18 03/07/18 15:00 17:43 19:00 20:00 Temp 98.1 97.5 98.1 97.5 Pulse 92 88 Resp 16 20 16 B/P (MAP) 141/86 (104) 152/86 (108) Pulse Ox 97 98 O2 Delivery Room Air Room Air Room Air Room Air 03/07/18 03/08/18 03/08/18 03/08/18 23:00 03:00 06:45 07:00 Temp 99.0 98.9 99.0 98.9 Pulse 86 99 94 Resp 18 B/P (MAP) 142/77 (98) 134/82 (99) 145/90 (108) Pulse Ox 96 95 95 94 O2 Delivery Room Air Room Air Room Air Room Air 03/08/18 03/08/18 03/08/18 03/08/18 08:00 08:53 11:00 11:46 Temp 99.1 99.1 Pulse 94 106 Resp 16 17 B/P (MAP) 145/90 130/85 (100) Pulse Ox 98 98 O2 Delivery Room Air Room Air Room Air DIETER LEE III DO Mar 08, 2018 13:29
--- NOTE | 2018-03-10 11:14 | DS ---
DATE OF DISCHARGE: 03/08/2018 ADMISSION DIAGNOSIS: Fall with right humerus fracture. DISCHARGE DIAGNOSIS: Postop open reduction internal fixation of the humerus fracture. 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 She presented after falling with a right humerus fracture. It involves mostly the ball of the humerus. She was admitted. We consulted Orthopedics. She was taken for ORIF. Postoperatively, she did well. We discharged to home. DISPOSITION: Home. ACTIVITY: As tolerated. DIET: Low sodium. MEDICATIONS: Please see the MRAD. TOTAL TIME IN DISCHARGE: Thirty-two minutes. DIETER LEE DO DR: HUMBERTO/emily JOB#: [id number] / [id number]
== END 2018-03-08 14:10 | disposition home or self-care (01) | DRG 494 ==
LOC: ER 16:20 → 4 NORTH 17:43
PROVIDERS: ADMIT Family Medicine; ATTEND Family Medicine
PROC: 0PSC04Z Reposition Right Humeral Head with Internal Fixation Device, Open Approach (ICD-10-PCS; principal; 2018-03-06 12:30)
DX: S42.201A Unspecified fracture of upper end of right humerus, initial encounter for closed fracture (principal); D50.9 Iron deficiency anemia, unspecified; E66.9 Obesity, unspecified; F17.210 Nicotine dependence, cigarettes, uncomplicated; I10 Essential (primary) hypertension; W01.0XXA Fall on same level from slipping, tripping and stumbling without subsequent striking against object, initial encounter; Z68.35 Body mass index [BMI] 35.0-35.9, adult; Z88.8 Allergy status to other drugs, medicaments and biological substances; Z91.030 Bee allergy status; Z82.49 Family history of ischemic heart disease and other diseases of the circulatory system; Z90.49 Acquired absence of other specified parts of digestive tract; Z90.710 Acquired absence of both cervix and uterus; Z98.84 Bariatric surgery status; Y93.89 Activity, other specified; Y92.89 Other specified places as the place of occurrence of the external cause; Y99.8 Other external cause status
CPT/HCPCS: 36415; 73030; 73060; 73080; 73200; 76000; 80048; 80053; 83540; 83550; 85025; 87641; 96374; A7015; C1713; J0171; J0690; J1100; J1200; J1885; J2001; J2250; J2270; J2405; J2704; J2710; J2795; J3010; J3490; J7030; J7120; S0028; 99285-25

== ENCOUNTER 2018-07-12 17:50 | Emergency (ER) | payer BC ==
[~2018-07-12] VITALS: Ht 12.7 cm; Wt 97.5 kg
[~2018-07-12 17:50] MED LIST: AMLO10TA6 PO; BUPR100T7 PO; BUPR150T11 PO; FURO-68 PO
--- NOTE | 2018-07-12 18:23 | PHYS DOC ---
Past Medical History Past Medical History: Hypertension Past Surgical History: Appendectomy, Colectomy, Gastric Bypass, Hysterectomy Alcohol Use: Occasionally Drug Use: None Adult General Chief Complaint Chief Complaint: ALCOHOL INTOXICATION HPI HPI Patient is a 47 year old female who presents with alcohol intoxication. She reports drinking "a lot" of vodka tonight. Denies any suicidal or homicidal ideations. Has no history of previous withdrawal tremors or seizures. No nausea or vomiting. Nothing seems to make the symptoms better or worse.[] Review of Systems Review of Systems Constitutional: Denies fever or chills [] Eyes: Denies change in visual acuity, redness, or eye pain [] HENT: Denies nasal congestion or sore throat [] Respiratory: Denies cough or shortness of breath [] Cardiovascular: No chest pain or palpitations[] GI: Denies abdominal pain, nausea, vomiting, bloody stools or diarrhea [] : Denies dysuria or hematuria [] Musculoskeletal: Denies back pain or joint pain [] Integument: Denies rash or skin lesions [] Neurologic: Denies headache, focal weakness or sensory changes [] Endocrine: Denies polyuria or polydipsia [] All other systems were reviewed and found to be within normal limits, except as documented in this note. Allergies Allergies Allergies Coded Allergies Type Severity Reaction Last Updated Verified bee venom protein (honey bee) Allergy Intermediate 03/05/18 No lisinopril Allergy Intermediate 05/18/15 Yes meperidine Allergy Intermediate 05/18/15 Yes Physical Exam Physical Exam Constitutional: Well developed, well nourished, tearful, non-toxic appearance. [ ] HENT: Normocephalic, atraumatic, bilateral external ears normal, oropharynx moist, no oral exudates, nose normal. [] Eyes: PERRLA, EOMI, conjunctiva normal, no discharge. [] Neck: Normal range of motion, no tenderness, supple, no stridor. [] Cardiovascular:Heart rate regular rhythm, no murmur [] Lungs & Thorax: Bilateral breath sounds clear to auscultation [] Abdomen: Bowel sounds normal, soft, no tenderness, no masses, no pulsatile masses. [] Skin: Warm, dry, no erythema, no rash. [] Back: No tenderness, no CVA tenderness. [] Extremities: No tenderness, no cyanosis, no clubbing, ROM intact, no edema. [] Neurologic: Alert and oriented X 3, normal motor function, normal sensory function, no focal deficits noted. [] Psychologic: Affect normal, judgement normal, tearful. [] Current Patient Data Vital Signs Vital Signs Date Time Temp Pulse Resp B/P (MAP) Pulse Ox O2 Delivery O2 Flow Rate FiO2 07/12/18 18:08 97.6 98 30 157/117 (130) 95 Room Air 97.6 EKG EKG [] Radiology/Procedures Radiology/Procedures [] Course & Med Decision Making Course & Med Decision Making Pertinent Labs and Imaging studies reviewed. (See chart for details) Medical decision making: Patient appears to be alcohol intoxicated. There is no evidence of a secondary toxidrome. There is no suicidal or homicidal ideation. 2005: Patient was able to ambulate without difficulty in the emergency department. Patient was stable for discharge.[] Dragon Disclaimer Dragon Disclaimer This electronic medical record was generated, in whole or in part, using a voice recognition dictation system. Departure Departure Impression: Primary Impression: Alcohol intoxication Disposition: 01 HOME, SELF-CARE Condition: GOOD Referrals: EFRAIN FERNANDEZ MD (PCP) Follow-up in 2 days Patient Instructions: Alcohol Intoxication Additional Instructions: Drink alcohol only in moderation. Do not drink and drive. If you feel that you need help with your alcohol use, Alcoholics Anonymous is available at [phone]. Follow-up with your regular doctor in 2 days. Return to the ER if any concerns. Problem Qualifiers Primary Impression: Alcohol intoxication Complication of substance-induced condition: uncomplicated Qualified Codes: F10.920 - Alcohol use, unspecified with intoxication, uncomplicated JIN ZEPEDA DO Jul 12, 2018 18:23
[2018-07-12 21:00] VITALS: BP 135/79
[2018-07-17] MEDS ORDERED: SPIR25TA PO (13:27)
[2018-07-17] MEDS ORDERED: ESOM40CA PO (13:28)
[2018-07-17] MEDS ORDERED: DEXT20TA2 PO (13:33)
[2018-07-17] MEDS ORDERED: CALC1TAB75 PO (13:34)
[2018-07-17] MEDS ORDERED: OXYC1TAB22 PO (13:35)
[2018-07-17] MEDS ORDERED: CYCL10TA2 PO (13:36)
[2018-07-17] MEDS ORDERED: VITA1CAP PO (13:39)
[2018-07-17] MEDS ORDERED: CHOL100017 PO (13:39)
== END 2018-07-12 21:30 | disposition home or self-care (01) ==
LOC: ER 17:50
DX: F10.129 Alcohol abuse with intoxication, unspecified (principal); I10 Essential (primary) hypertension; Z88.8 Allergy status to other drugs, medicaments and biological substances; Z91.030 Bee allergy status; Y90.9 Presence of alcohol in blood, level not specified
CPT/HCPCS: 99283

== ENCOUNTER → 2018-07-22 | Day surgery (SDC) | payer BC ==
[~2018-07-22] VITALS: Ht 165.1 cm; Wt 102.1 kg
[~2018-07-22] MED LIST changes: +ACETAMINOPHEN 500 MG TABLET PO ONE; -AMLO10TA6 PO; +AMLO10TA8 PO; +BUPIVAC MPF-EPI 0.5%-1:200000 30 ML VIAL. ONE; +CALC1TAB75 PO; +CHOL100017 PO; +CYCL10TA2 PO; +DEXAMETHASONE SOD PHOS 20 MG/5 ML VIAL. ONE; +DEXT20TA2 PO; +ESOM40CA PO; +FAMOTIDINE 20 MG/2 ML VIAL ONE; +GLYCOPYRROLATE 1 MG/5 ML VIAL. ONE; +HYDROmorphone 2 MG/ML VIAL IV PRN; +IV RINGERS,LACTATED 1000ML 1,000 ML IV SCH; +KETOROLAC 30 MG/ML INJ FOR OR. INJ ONE; +LIDOCAINE 1% PF 2 ML VIAL. ID PRN; +LIDOCAINE 2% PF 5 ML VIAL. ONE; +METOCLOPRAMIDE HCL 10 MG/2 ML VIAL. ONE; +MIDAZOLAM HCL/PF 2 MG/2 ML VIAL. ONE; +MORPHINE SULFATE 5 MG, KETOROLAC 30MG VIAL 30 MG, ROPIVacaine 0.5% PF 60 ML, EPINEPHrin... INT ART ONE; +NEOSTIGMINE METHYLSULFATE 5 MG/5 ML SYRINGE. ONE; +ONDANSETRON PF 4 MG/2 ML VIAL. IV PRN; +ONDANSETRON PF 4 MG/2 ML VIAL. ONE; +OXYC1TAB22 PO; +PROCHLORPERAZINE 10 MG/2 ML VIAL. IV PRN; +PROPOFOL 20 ML IV ONE; +ROCURONIUM 50 MG/5 ML VIAL. ONE; +SCOPOLAMINE 1.5MG PATCH. TD ONE; +SCOPOLAMINE 1.5MG PATCH. TD SCH; +SEVOFLURANE 31 TO 60 MINUTES. IH ONE; +SEVOFLURANE 61 TO 120 MINUTES. IH ONE; +SPIR25TA PO; +VITA1CAP PO; +ceFAZolin 2GM PREMIX 2 GM/50 ML BAG IV ONE; +fentaNYL PF VIAL 100 MCG/2 ML VIAL ONE
--- NOTE | 2018-07-22 09:28 | DISCH ---
DISCHARGE INSTRUCTIONS Condition on Discharge Condition on Discharge: Stable Activity After Discharge Activity Instructions for Disc: Other ROM activity Other activity instructions: frequent shoulder ROM using Left arm Lifting Instructions after Dis: No heavy lifting, No pulling or pushing, Do not lift >10 pounds Weight Bearing Status after Di: Non weight bearing Diet after Discharge Diet after Discharge: Regular Wound Incision Care Wound/Incision Care: Keep wound/cast CDI, Change dressing Contacting the DR. after DC Call your doctor for: Concerns you may have Follow-Up Follow up with: Nu in 2 wks Follow Up With: KATHRYN RICKETTS II, MD Jul 22, 2018 09:27
[2018-07-22] MEDS: MORPHINE SULFATE 4 MG/ML VIAL. IV PRN ×2 (11:54→12:05)
--- NOTE | 2018-07-22 11:58 | PDOC4 ---
Operative Note Operative Note Date of procedure: 07-22-2018 Surgeon: Ryan Gonzalez Tunnel Elastic Operator Zigzag: Mary Dacosta, certified medical records coder Preoperative diagnosis: Prominent hardware after ORIF right proximal humerus fracture Postoperative diagnosis: Same Procedure performed: #1 revision fixation ORIF right proximal humerus #2 closed manipulation right shoulder Findings: no motion at fracture Active forward elevation 120�, external rotation to 40 Anesthesia: Gen. Complications: none Blood loss: 25mL Reason for procedure: Patient is a very pleasant 47-year-old female who I had performed ORIF right proximal humerus on a couple months ago. Serial radiographs demonstrated collapse her humeral head and prominent screw intra- articularly I discussed the risks, benefits, alternatives to proceeding with the above surgery and she wished to proceed. Description of procedure: Patient was greeted in the preoperative holding area by myself for the correct extremity was verified and marked. She was taken back to the operative suite and her antibiotics were started as she was brought back. Once in the operating room, she was transferred supine to the operating table and sat up in a beachchair position after successful induction of a general anesthetic. We had a large pad under her legs. She was secured the bed with all pressure points padded. C-spine maintained in neutral position. I then conducted my examination under anesthesia with the above-noted findings. After this, the right upper extremity and shoulder girdle were prepped and draped in our usual sterile fashion including [place] at the periphery. We then conducted our standard preoperative timeout. After this, I incised skin through her prior skin incision and identified her deltopectoral interval using Metzenbaums and electrocautery to dissect and achieve hemostasis. I bluntly exposed the deltopectoral interval and dissected in the subdeltoid space to remove adhesions digitally. After this, I identified the proximal humerus locking plate. With the assistance of C-arm, I removed 3 screws I felt were proud, one was not loose, the other 2 were loose. I inspected the fracture site and used a [place] and stressed her shoulder and noted no motion. I attempted to replace shorter screws, but there is no purchase with the exception of a 1 area and I placed a nonlocking screw. I took my final images then used approach withdrawal method to ensure hardware was extra-articular. After this, I performed a gentle manipulation and 4 elevation, I repeated twice more and felt some adhesions break free. 4 elevation at this point was approximately 150�. I then thoroughly irrigated the operative field and injected my periarticular mixture into the kaya-incisional soft tissues. Deltopectoral interval was closed with running #1 Vicryl. Inverted interrupted 2-0 Vicryl was used for subcutaneous tissue and running 4-0 Monocryl in a subcuticular fashion was used for skin. All counts correct �2 prior to wound closure. No complications. Postoperative plan is to resume physical therapy and perform frequent range of motion exercises. She�ll be discharged home. Nonweightbearing. Sling for comfort. I will see her back in 2 weeks, sooner should a problem arise RYAN GONZALEZ II, MD Jul 22, 2018 11:58
[2018-07-22 12:27] VITALS: BP 179/99
== END | disposition home or self-care (01) ==
LOC: SURG 07:40
PROVIDERS: ATTEND Orthopaedic Surgery Sports Medicine
DX: T84.89XA Other specified complication of internal orthopedic prosthetic devices, implants and grafts, initial encounter (principal); S42.291D Other displaced fracture of upper end of right humerus, subsequent encounter for fracture with routine healing; M25.511 Pain in right shoulder; I10 Essential (primary) hypertension; R00.2 Palpitations; G47.00 Insomnia, unspecified; F17.200 Nicotine dependence, unspecified, uncomplicated; Z90.49 Acquired absence of other specified parts of digestive tract; Z90.710 Acquired absence of both cervix and uterus; Z98.890 Other specified postprocedural states; Z80.0 Family history of malignant neoplasm of digestive organs; Z82.49 Family history of ischemic heart disease and other diseases of the circulatory system; Z88.8 Allergy status to other drugs, medicaments and biological substances; Z91.018 Allergy to other foods; Z79.899 Other long term (current) drug therapy; X58.XXXD Exposure to other specified factors, subsequent encounter; Y83.8 Other surgical procedures as the cause of abnormal reaction of the patient, or of later complication, without mention of misadventure at the time of the procedure; Y92.89 Other specified places as the place of occurrence of the external cause
CPT/HCPCS: 23615; 76000; A7015; C1713; J0171; J0690; J1100; J1885; J2001; J2250; J2270; J2405; J2704; J2710; J2765; J2795; J3010; J3490; J0696

== ENCOUNTER 2019-05-04 07:15 | Inpatient (IN) | payer BC ==
[~2019-05-04] VITALS: Ht 165.1 cm; Wt 104.3 kg
[~2019-05-04 07:15] MED LIST changes: -ACETAMINOPHEN 500 MG TABLET PO ONE; -BUPIVAC MPF-EPI 0.5%-1:200000 30 ML VIAL. ONE; -DEXAMETHASONE SOD PHOS 20 MG/5 ML VIAL. ONE; -FAMOTIDINE 20 MG/2 ML VIAL ONE; -GLYCOPYRROLATE 1 MG/5 ML VIAL. ONE; -HYDROmorphone 2 MG/ML VIAL IV PRN; -IV RINGERS,LACTATED 1000ML 1,000 ML IV SCH; -KETOROLAC 30 MG/ML INJ FOR OR. INJ ONE; -LIDOCAINE 1% PF 2 ML VIAL. ID PRN; -LIDOCAINE 2% PF 5 ML VIAL. ONE; -METOCLOPRAMIDE HCL 10 MG/2 ML VIAL. ONE; -MIDAZOLAM HCL/PF 2 MG/2 ML VIAL. ONE; -MORPHINE SULFATE 5 MG, KETOROLAC 30MG VIAL 30 MG, ROPIVacaine 0.5% PF 60 ML, EPINEPHrin... INT ART ONE; -NEOSTIGMINE METHYLSULFATE 5 MG/5 ML SYRINGE. ONE; -ONDANSETRON PF 4 MG/2 ML VIAL. IV PRN; -ONDANSETRON PF 4 MG/2 ML VIAL. ONE; -PROCHLORPERAZINE 10 MG/2 ML VIAL. IV PRN; -PROPOFOL 20 ML IV ONE; -ROCURONIUM 50 MG/5 ML VIAL. ONE; -SCOPOLAMINE 1.5MG PATCH. TD ONE; -SCOPOLAMINE 1.5MG PATCH. TD SCH; -SEVOFLURANE 31 TO 60 MINUTES. IH ONE; -SEVOFLURANE 61 TO 120 MINUTES. IH ONE; -ceFAZolin 2GM PREMIX 2 GM/50 ML BAG IV ONE; -fentaNYL PF VIAL 100 MCG/2 ML VIAL ONE
[2019-05-04] MEDS ORDERED: KETOROLAC 60 MG/2 ML VIAL. IM ONE (07:30)
[2019-05-04] MEDS ORDERED: ONDANSETRON ODT 4 MG TAB.RAPDIS. PO ONE (07:30)
[2019-05-04] MEDS ORDERED: fentaNYL PF VIAL 100 MCG/2 ML VIAL IM ONE (07:45)
--- NOTE | 2019-05-04 08:09 | RAD ---
SHOULDER 2+V LEFT DATE: 05/04/2019 7:41 AM INDICATION: Shoulder pain after falling COMPARISON: None. FINDINGS: Bones: Acute mildly displaced fracture of the surgical neck of the humerus. Joints: Glenohumeral joint is congruent. Mild degenerative changes of the acromioclavicular joint. Miscellaneous: No abnormal soft tissue calcifications in the shoulder. IMPRESSION: Acute mildly displaced proximal humerus fracture Electronically signed by: Conrado Julio MD (05/04/2019 8:06 AM) [id number]
[2019-05-04] MEDS ORDERED: OXYC1TAB15 PO (08:53)
[2019-05-04] MEDS ORDERED: ONDA4TAB7 PO (08:53)
--- NOTE | 2019-05-04 08:53 | PHYS DOC ---
Past Medical History Past Medical History: Hypertension Past Surgical History: Appendectomy, Colectomy, Gastric Bypass, Hysterectomy Additional Past Surgical Histo: right arm surgery Alcohol Use: Heavy Drug Use: None Adult General Chief Complaint Chief Complaint: UPPER EXTREMITY INJURY [facility] HPI Patient is a 48 year old handed female who presents with complaining of left arm injury. Patient states she lost her balance while she was at shower last night and had a fall and hit her left upper extremity. Patient denies other injuries or loss of consciousness. Patient complaining of arm and shoulder pain as a constant pain that getting worse with with movement of her arm rated her pain 10 over 10. Patient denies focal neuro deficit, fever and chills, nausea and vomiting. Patient states she took left over of Percocet last night but didn't take any medication today. Review of Systems Review of Systems Constitutional: Denies fever or chills [] Eyes: Denies change in visual acuity, redness, or eye pain [] HENT: Denies nasal congestion or sore throat [] Respiratory: Denies cough or shortness of breath [] Cardiovascular: No additional information not addressed in HPI [] GI: Denies abdominal pain, vomiting, bloody stools or diarrhea, reports nausea [] : Denies dysuria or hematuria [] Musculoskeletal: Denies back pain, reports joint pain [] Integument: Denies rash or skin lesions [] Neurologic: Denies headache, focal weakness or sensory changes [] Endocrine: Denies polyuria or polydipsia [] All other systems were reviewed and found to be within normal limits, except as documented in this note. Current Medications Current Medications Current Medications Medications (Trade) Dose Ordered Sig/[facility] Start Time Stop Time Status Last Admin Dose Admin Fentanyl Citrate (Fentanyl 2ml Vial) 50 mcg 1X ONCE 05/04/19 07:45 05/04/19 07:46 DC 05/04/19 07:50 50 MCG Ketorolac Tromethamine (Toradol Im) 60 mg 1X ONCE 05/04/19 07:30 05/04/19 07:37 DC Ondansetron HCl (Zofran Odt) 4 mg 1X ONCE 05/04/19 07:30 05/04/19 07:33 DC 05/04/19 07:50 4 MG Allergies Allergies Allergies Coded Allergies Type Severity Reaction Last Updated Verified bee venom protein (honey bee) Allergy Intermediate 07/22/18 No lisinopril Allergy Intermediate 07/22/18 Yes meperidine Allergy Intermediate 07/22/18 Yes Physical Exam Physical Exam Constitutional: Well developed, well nourished, moderate distress, non-toxic appearance. [] HENT: Normocephalic, atraumatic. Eyes: PERRLA, EOMI, conjunctiva normal, no discharge. [] Neck: Normal range of motion, no tenderness, supple, no stridor. [] Cardiovascular:Heart rate regular rhythm, no murmur [] Lungs & Thorax: Bilateral breath sounds clear to auscultation [] Back: No tenderness, no CVA tenderness. [] Extremities: Left shoulder without deformity, painful proximal humerus with limited range of motion, no neurovascular deficit. Neurologic: Alert and oriented X 3, no focal deficits noted. [] Psychologic: Affect normal, judgement normal, mood normal. [] Current Patient Data Vital Signs Vital Signs Date Time Temp Pulse Resp B/P (MAP) Pulse Ox O2 Delivery O2 Flow Rate FiO2 05/04/19 07:30 97.8 110 18 158/83 (108) 98 Room Air 97.8 EKG EKG [] Radiology/Procedures Radiology/Procedures [][facility] [address] [place], [place] [id number] IMAGING REPORT Signed PATIENT: HARJEET BOWLES ACCOUNT: [id number] : 1970 LOCATION: ER AGE: 48 SEX: F EXAM STATUS: REG ER ORD. PHYSICIAN: BEKA NAVARRO MD REASON: FALL LAST PM, PAIN TO LEFT SHOULDER PROCEDURE: SHOULDER 2+V LEFT SHOULDER 2+V LEFT DATE: 05/04/2019 7:41 AM INDICATION: Shoulder pain after falling COMPARISON: None. FINDINGS: Bones: Acute mildly displaced fracture of the surgical neck of the humerus. Joints: Glenohumeral joint is congruent. Mild degenerative changes of the acromioclavicular joint. Miscellaneous: No abnormal soft tissue calcifications in the shoulder. IMPRESSION: Acute mildly displaced proximal humerus fracture Electronically signed by: Madeline Julio MD (05/04/2019 8:06 AM) [facility] [place] DICTATED and SIGNED BY: MADELINE JULIO MD DATE: 05/04/19 08 Course & Med Decision Making Course & Med Decision Making Pertinent Labs reviewed. (See chart for details) Evaluation of patient showed 48-year-old right-handed female patient with injury to left shoulder after a fall last night. X-ray showed mildly displaced proximal humerus fracture. Dr Gonzalez was consulted at 0830 and recommended to apply shoulder immobilizer and prescribed pain medication and follow up with his clinic admit patient for pain management. Patient feels comfortable to go home and follow as outpatient with her physician. Shoulder immobilizer was applied in ER. I've spoken with the patient and/or caregivers. I've explained the patient's condition, diagnosis and treatment plan based on information available to me at this time. I've answered the patient's and/or caregivers questions and addressed any concerns. The patient and/or caregivers have a good understanding the patient's diagnosis, condition and treatment plan as can be expected at this point. Vital signs have been stabilized. The patient's condition is stable for discharge from the emergency department. The patient will pursue further outpatient evaluation with her primary care provider or other designated consulting physician as outlined in the discharge instructions. Patient and/or caregivers are agreeable to this plan of care and follow-up instructions have been explained in detail. The patient and/or caregivers have received these instructions in written format and expressed understanding of these discharge instructions. The patient and her caregivers are aware that if any significant change in condition or worsening of symptoms should prompt him to immediately return to this of the closest emergency department. If an emergent department is not readily available I would encourage him to call 911. After applying shoulder immobilizer patient states that she wanted to stay at Hospital. Patient requiring admission for further evaluation and treatment. Discussed with Dr. Schofield who is in agreement with admission. Discussed findings and plan with patient and family, who acknowledge understanding and agreement. Dragon Disclaimer Dragon Disclaimer This electronic medical record was generated, in whole or in part, using a voice recognition dictation system. Departure Departure Impression: Primary Impression: Closed fracture of left proximal humerus Additional Impressions: Fall at home Intractable pain Disposition: ADMITTED INPATIENT Admitting Physician: JAMES (Dr. Schofield accepted admission at 0937) Condition: IMPROVED Referrals: NO PCP (PCP) KATHRYN GONZALEZ II, MD Patient Instructions: Humerus Fracture, Treated with Immobilization Additional Instructions: Apply ice on the affected area Follow-up with Dr Gonzalez in 1-2 days Return to ER if not getting better Scripts Ondansetron Hcl (ZOFRAN) 4 Mg Tablet 1 TAB PO PRN Q6-8HRS for nausea, #12 TAB Prov: BEKA NAVARRO MD 05/04/19 Oxycodone/Apap 5-325 (PERCOCET 5-325 MG TABLET ) 1 Each Tablet 1 TAB PO PRN Q6HRS PRN for PAIN, #20 TAB 0 Refills Prov: BEKA NAVARRO MD 05/04/19 Problem Qualifiers Primary Impression: Closed fracture of left proximal humerus Encounter type: initial encounter Fracture morphology: unspecified fracture morphology Qualified Codes: S42.202A - Unspecified fracture of upper end of left humerus, initial encounter for closed fracture Additional Impressions: Fall at home Encounter type: subsequent encounter Qualified Codes: W19.XXXD - Unspecified fall, subsequent encounter; Y92.009 - Unspecified place in unspecified non-institutional (private) residence as the place of occurrence of the external cause BEKA NAVARRO MD May 04, 2019 08:53
[2019-05-04] MEDS ORDERED: fentaNYL PF VIAL 100 MCG/2 ML VIAL IVP ONE (09:45)
[2019-05-04 10:26] LABS: ALBUMIN 3.9 g/dL (3.4-5.0); ALBUMIN/GLOBULIN RATIO 0.9 (1.0-1.7); CALCIUM 9.3 mg/dL (8.5-10.1); CREATININE 0.6 mg/dL (0.6-1.0); GFR 105.8; POTASSIUM 4.1 mmol/L (3.5-5.1); TOTAL BILIRUBIN 0.6 mg/dL (0.2-1.0); TOTAL PROTEIN 8.2 g/dL (6.4-8.2)
--- NOTE | 2019-05-04 10:27 | PDOC1 ---
History and Physical Date of Admission Date of Admission DATE: 05/04/19 TIME: 10:25 Identification/Chief Complaint Chief Complaint Shoulder pain Source Source: Patient History of Present Illness History of Present Illness Ms Álvarez is a 48yo F w/ PMHx HTN, s/p gastric bypass who presents with complaining of left arm injury. Patient states she lost her balance while she was at shower last night and had a fall and hit her left upper extremity. Patient denies other injuries or loss of consciousness. Patient complaining of arm and shoulder pain as a constant pain that getting worse with with movement of her arm rated her pain 10 over 10. Patient denies focal neuro deficit, fever and chills, nausea and vomiting. Patient states she took left over of Percocet last night but didn't take any medication today. She already feels improved in sling, but is in 8/10 pain, feels the fentanyl wore off already. 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 Past Medical History Cardiovascular: HTN Pulmonary: No pertinent hx Renal/: No pertinent hx Past Surgical History Past Surgical History: Hysterectomy Family History Family History: High Cholestrol, Hypertension Family History: Parent Social History Smoke: No ALCOHOL: occassional Drugs: None Current Medications Current Medications Current Medications Ondansetron HCl (Zofran Odt) 4 mg 1X ONCE PO Last administered on 05/04/19at 07:50; Start 05/04/19 at 07:30; Stop 05/04/19 at 07:33; Status DC Ketorolac Tromethamine (Toradol Im) 60 mg 1X ONCE IM ; Start 05/04/19 at 07:30; Stop 05/04/19 at 07:37; Status DC Fentanyl Citrate (Fentanyl 2ml Vial) 50 mcg 1X ONCE IM Last administered on 05/04/19at 07:50; Start 05/04/19 at 07:45; Stop 05/04/19 at 07:46; Status DC Fentanyl Citrate (Fentanyl 2ml Vial) 50 mcg 1X ONCE IVP Last administered on 05/04/19at 09:58; Start 05/04/19 at 09:45; Stop 05/04/19 at 09:49; Status DC Active Scripts Active Zofran (Ondansetron Hcl) 4 Mg Tablet 1 Tab PO PRN Q6-8HRS Percocet 5-325 Mg Tablet (Oxycodone/Acetaminophen) 1 Each Tablet 1 Tab PO PRN Q6HRS PRN Reported Vitamin B Complex 1 Each Capsule 1 Each PO DAILY Vitamin D (Cholecalciferol (Vitamin D3)) 10,000 Unit Capsule 10,000 Unit PO QSU Cyclobenzaprine Hcl 10 Mg Tablet 1 Tab PO PRN TID PRN Percocet 10-325 Mg Tablet (Oxycodone/Acetaminophen) 1 Each Tablet 1 Tab PO PRN Q6HRS PRN Calcium 600 + Vit D 200 Tablet (Calcium Carbonate/Vitamin D3) 1 Each Tablet 1 Each PO TID Adderall 20 Mg Tablet (Dextroamphetamine/Amphetamine) 20 Mg Tablet 20 Mg PO PRN PRN Nexium Capsule (Esomeprazole Magnesium) 40 Mg Capsule.dr 1 Cap PO DAILY Aldactone (Spironolactone) 25 Mg Tablet 1 Tab PO DAILY Amlodipine Besylate 10 Mg Tablet 10 Mg PO DAILY Lasix (Furosemide) 40 Mg Tablet 40 Mg PO DAILY Allergies Allergies: Coded Allergies: bee venom protein (honey bee) (Unverified Allergy, Intermediate, 07/22/18) lisinopril (Verified Allergy, Intermediate, 07/22/18) meperidine (Verified Allergy, Intermediate, 07/22/18) ROS General: YES: Fatigue, Malaise; No: Chills, Night Sweats, Appetite, Other PSYCHOLOGICAL ROS: No: Anxiety, Behavioral Disorder, Concentration difficultie, Decreased libido, Depression, Disorientation, Hallucinations, Hostility, Irritablity, Memory difficulties, Mood Swings, Obsessive thoughts, Physical abuse, Sexual abuse, Sleep disturbances, Suicidal ideation, Other Eyes: No Blurry vision, No Decreased vision, No Double vision, No Dry eyes, No Excessive tearing, No Eye Pain, No Itchy Eyes, No Loss of vision, No Photophobia, No Scotomata, No Uses contacts, No Uses glasses, No Other HEENT: No: Heacaches, Visual Changes, Hearing change, Nasal congestion, Nasal discharge, Oral lesions, Sinus pain, Sore Throat, Epistaxis, Sneezing, Snoring, Tinnitus, Vertigo, Vocal changes, Other ALLERGY AND IMMUNOLOGY: No: Hives, Insect Bite Sensitivity, Itchy/Watery Eyes, Nasal Congestion, Post Nasal Drip, Seasonal Allergies, Other Hematological and Lymphatic: No: Bleeding Problems, Blood Clots, Blood Transfu sions, Brusing, Night Sweats, Pallor, Swollen Lymph Nodes, Other ENDOCRINE: No: Breast Changes, Galactorrhea, Hair Pattern Changes, Hot Flashes, Malaise/lethargy, Mood Swings, Palpitations, Polydipsia/polyuria, Skin Changes, Temperature Intolerance, Unexpected Weight Changes, Other Breast: No New/Changing Breast Lumps, No Nipple changes, No Nipple discharge, No Other Respiratory: No: Cough, Hemoptysis, Orthopnea, Pleuritic Pain, Shortness of breath, SOB with excertion, Sputum Changes, Stridor, Tachypnea, Wheezing, Other Cardiovascular: No Chest Pain, No Palpitations, No Orthopnea, No Paroxysmal Noc. Dyspnea, No Edema, No Lt Headedness, No Other Gastrointestinal: No Nausea, No Vomiting, No Abdominal Pain, No Diarrhea, No Constipation, No Melena, No Hematochezia, No Other Genitourinary: No Dysuria, No Frequency, No Incontinence, No Hematuria, No Retention, No Discharge, No Urgency, No Pain, No Flank Pain, No Other, No , No , No , No , No , No , No Musculoskeletal: Yes Joint Pain; No Gait Disturbance, No Joint Stiffness, No Joint Swelling, No Muscle Pain, No Muscular Weakness, No Pain In:, No Swelling In:, No Other Neurological: No Behavorial Changes, No Bowel/Bladder ControlChng, No Confusio n, No Dizziness, No Gait Disturbance, No Headaches, No Impaired Coord/balance, No Memory Loss, No Numbness/Tingling, No Seizures, No Speech Problems, No Tremors, No Visual Changes, No Weakness, No Other Skin: No Dry Skin, No Eczema, No Hair Changes, No Lumps, No Mole Changes, No Mottling, No Nail Changes, No Pruritus, No Rash, No Skin Lesion Changes, No Other, No Acne Physical Exam General: Alert, Oriented X3, Cooperative, No acute distress HEENT: Atraumatic, PERRLA, EOMI, Mucous membr. moist/pink Lungs: Clear to auscultation, Normal air movement Heart: S1S2, RRR, no gallops, no murmurs Abdomen: Normal bowel sounds, Soft, No tenderness, No hepatosplenomegaly, No masses Rectal Exam: not examined Extremities: No clubbing, No cyanosis, No edema, Normal pulses, Other (Left upper arm tender and swollen) Skin: No rashes, No breakdown, No significant lesion Neuro: Normal gait, Normal speech, Strength at 5/5 X4 ext, Normal tone, Sensation intact, Cranial nerves 3-12 NL, Reflexes 2+ Psych/Mental Status: Mental status NL, Mood NL Vitals Vitals Vital Signs Date Time Temp Pulse Resp B/P (MAP) Pulse Ox O2 Delivery O2 Flow Rate FiO2 05/04/19 10:19 101 16 144/81 (102) 99 Room Air 05/04/19 07:30 97.8 97.8 Images Images Left Shoulder XR - Acute mildly displaced proximal humerus fracture VTE Prophylaxis Ordered VTE Prophylaxis Devices: No VTE Pharmacological Prophylaxi: Yes Assessment/Plan Assessment/Plan A/P: Left humerus fracture - in sling. Pain extreme requiring inpatient management with IV medications for now, awaiting ortho evaluation. Had right arm surgery last year. HTN - can cont meds s/p gastric bypass - will check vitamin D level, possible deficiency. FEN - General diet PPX - lovenox FULL CODE Dispo - inpatient for acute fracture ZARI SIM MD May 04, 2019 10:27
[2019-05-04 11:00] VITALS: BP 152/86
[2019-05-04 11:13] LABS: BASO # 0.1 x10^3/uL (0.0-0.2); BASO % 1 % (0-3); EOS % 0 % (0-3); HEMATOCRIT 27.3 % (36.0-47.0); LYMPH # 0.6 x10^3/uL (1.0-4.8); LYMPH % 7 % (24-48); MEAN CORPUSCULAR HEMOGLOBIN 19 pg (25-35); MEAN CORPUSCULAR HGB CONC 29 g/dL (31-37); MEAN CORPUSCULAR VOLUME 65 fL (79-100); MONO # 0.5 x10^3/uL (0.0-1.1); MONO % 6 % (0-9); NEUT # 8.4 x10^3/uL (1.8-7.7); NEUT % 87 % (31-73); PLATELET COUNT 513 x10^3/uL (140-400); RED BLOOD COUNT 4.22 x10^6/uL (3.50-5.40); RED CELL DISTRIBUTION WIDTH 20.6 % (11.5-14.5); WHITE BLOOD COUNT 9.7 x10^3/uL (4.0-11.0)
[2019-05-04] MEDS: amLODIPine BESYLATE 10 MG TABLET PO SCH (12:30)
[2019-05-04] MEDS: oxyCODONE/APAP 5/325 1 TAB TABLET PO PRN ×2 (12:30→22:14)
[2019-05-04] MEDS: CYCLOBENZAPRINE 10 MG TABLET. PO PRN ×2 (12:30→19:59)
[2019-05-04] MEDS: SPIRONOLACTONE 25 MG TABLET PO SCH (12:30)
[2019-05-04] MEDS: FUROSEMIDE 40 MG TABLET. PO SCH (12:31)
[2019-05-04 13:03] LABS: ANISOCYTOSIS MOD; HYPOCHROMIA MARKED; MICROCYTOSIS MARKED; OVALOCYTES OCC; PLT ESTIMATE INCREASED (ADEQUATE)
[2019-05-04] MEDS ORDERED: LORazepam 1 MG TABLET PO PRN (13:30)
[2019-05-04 15:00] VITALS: BP 98/45
[2019-05-04] MEDS ORDERED: ENOXAPARIN 40 MG/0.4 ML SYRINGE. SQ SCH (15:30)
--- NOTE | 2019-05-04 15:36 | CONS ---
DATE OF CONSULTATION: ORTHOPEDIC CONSULTATION REQUESTING PHYSICIAN: Demian Schofield MD and ____. REASON FOR CONSULTATION: Left proximal humerus fracture. HISTORY OF PRESENT ILLNESS: The patient is a 48-year-old female who lost her balance in the shower last night, had a fall, hit her left shoulder, denies any loss of consciousness, but complains of left shoulder pain. She notes that she had been treated by Dr. Judge operatively for right proximal humerus fracture about a year ago and requested his involvement in her treatment. She took some leftover Percocet last night, but was concerned with the severe pain that she had previously on the right arm and came in for evaluation to the Emergency Department. PAST MEDICAL HISTORY: Hypertension. PAST SURGICAL HISTORY: Right shoulder surgery, appendectomy, colectomy, gastric bypass, hysterectomy. MEDICATIONS: List is reviewed. ALLERGIES: INCLUDE BEE VENOM, LISINOPRIL AND MEPERIDINE. SOCIAL HISTORY: No smoking or drug use. Heavy alcohol use. FAMILY HISTORY: No significant family history. REVIEW OF SYSTEMS: She denies any loss of consciousness. No neck or back pain, radiating pain, focal weakness, numbness or tingling. Significant for the arm pain, especially with any movement. She is currently in a sling, immobilizer. PHYSICAL EXAMINATION: Pleasant, cooperative 48-year-old female, alert and oriented, no acute distress. Pain is well controlled. She is currently in an immobilizer. She does have tenderness over the fracture site. Her distal motor and sensory status is all intact with the radial, median and ulnar nerves as well as axillary nerve sensation. Distal pulses and capillary refill are likewise intact bilaterally. She has well-healed incision from previous surgery on the right shoulder. Normal alignment, stability of bilateral elbows and wrists. IMAGING: X-rays of the left shoulder show a fracture with very minimal displacement, overall acceptable angulation of the very proximal humeral shaft at the metaphyseal area. Glenohumeral joint is well maintained as is the acromioclavicular joint. IMPRESSION: Left proximal humerus fracture, minimally displaced. TREATMENT PLAN: I went over with her that I have discussed the case with Dr. Judge, he agrees with nonoperative treatment of this injury. She is currently adequately immobilized in the immobilizer. We will continue to look after her in terms of pain control and expect follow up with Dr. Judge in the neighborhood of about 10-14 days in clinic. TUSHAR WALTER MD DR: ELSA/emily JOB#: [id number] / [id number]
[2019-05-04] MEDS: MORPHINE SULFATE 2 MG/ML VIAL. IV PRN ×2 (16:04→20:08)
[2019-05-04 19:20] VITALS: BP 142/90
[2019-05-04] MEDS ORDERED: PSYLLIUM HUSK (SUGAR FREE) 1 PKT PACKET PO SCH (21:00)
[2019-05-04 23:05] VITALS: BP 149/100
[2019-05-05 03:03] VITALS: BP 154/100
[2019-05-05] MEDS: oxyCODONE/APAP 5/325 1 TAB TABLET PO PRN ×2 (04:30→11:02)
[2019-05-05 07:00] VITALS: BP 158/88
--- NOTE | 2019-05-05 08:28 | PDOC ---
PROGRESS NOTES Chief Complaint Chief Complaint A/P: Left humerus fracture - in sling. Pain extreme requiring inpatient management with IV medications for now, awaiting ortho evaluation. Had right arm surgery last year. HTN - can cont meds Anemia - microcytic, iron deficiency, will replace Vitamin D insufficiency - will replace Vitamin B low - will replace IM s/p gastric bypass - will check vitamin D level, possible deficiency. FEN - General diet PPX - lovenox FULL CODE Dispo - inpatient for acute fracture History of Present Illness History of Present Illness Ms Álvarez is a 48yo F w/ PMHx HTN, s/p gastric bypass who presents with complaining of left arm injury. Patient states she lost her balance while she was at shower last night and had a fall and hit her left upper extremity. Patient denies other injuries or loss of consciousness. Patient complaining of arm and shoulder pain as a constant pain that getting worse with with movement of her arm rated her pain 10 over 10. Patient denies focal neuro deficit, fever and chills, nausea and vomiting. Patient states she took left over of Percocet last night but didn't take any medication today. 05/04: She already feels improved in sling, but is in 8/10 pain, feels the fentanyl wore off already. 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 Feeling like the combination of flexeril and oxycodone has really controlled her pain better. Vitamin D, B12 low and anemic. On replacement therapy. She feels ready to leave the hospital. No SOB or CP. Had a BM this morning Vitals Vitals Vital Signs Date Time Temp Pulse Resp B/P (MAP) Pulse Ox O2 Delivery O2 Flow Rate FiO2 05/05/19 07:00 98.5 92 18 158/88 (111) 94 Room Air 98.5 Physical Exam General: Alert, Oriented X3, Cooperative, No acute distress Lungs: Clear Abdomen: Normal bowel sounds, Soft, No tenderness, No hepatosplenomegaly, No masses Extremities: No clubbing, No cyanosis, No edema, Normal pulses, Other (Left upper arm tender and swollen) Skin: No rashes, No breakdown, No significant lesion Labs LABS Laboratory Tests Test 05/04/19 09:57 05/04/19 10:55 Prothrombin Time 13.0 SEC (11.7-14.0) Prothromb Time International Ratio 1.0 (0.8-1.1) Sodium Level 139 mmol/L (136-145) Potassium Level 4.1 mmol/L (3.5-5.1) Chloride Level 102 mmol/L (98-107) Carbon Dioxide Level 21 mmol/L (21-32) Anion Gap 16 (6-14) Blood Urea Nitrogen 14 mg/dL (7-20) Creatinine 0.6 mg/dL (0.6-1.0) Estimated GFR (Cockcroft-Gault) 105.8 BUN/Creatinine Ratio 23 (6-20) Glucose Level 86 mg/dL (70-99) Calcium Level 9.3 mg/dL (8.5-10.1) Total Bilirubin 0.6 mg/dL (0.2-1.0) Aspartate Amino Transf (AST/SGOT) 28 U/L (15-37) Alanine Aminotransferase (ALT/SGPT) 37 U/L (14-59) Alkaline Phosphatase 175 U/L (46-116) Total Protein 8.2 g/dL (6.4-8.2) Albumin 3.9 g/dL (3.4-5.0) Albumin/Globulin Ratio 0.9 (1.0-1.7) Vitamin B12 Level 336 pg/mL (247-911) 25-Hydroxy Vitamin D Total 28.7 ng/mL (30-100) White Blood Count 9.7 x10^3/uL (4.0-11.0) Red Blood Count 4.22 x10^6/uL (3.50-5.40) Hemoglobin 8.0 g/dL (12.0-15.5) Hematocrit 27.3 % (36.0-47.0) Mean Corpuscular Volume 65 fL (79-100) Mean Corpuscular Hemoglobin 19 pg (25-35) Mean Corpuscular Hemoglobin Concent 29 g/dL (31-37) Red Cell Distribution Width 20.6 % (11.5-14.5) Platelet Count 513 x10^3/uL (140-400) Neutrophils (%) (Auto) 87 % (31-73) Lymphocytes (%) (Auto) 7 % (24-48) Monocytes (%) (Auto) 6 % (0-9) Eosinophils (%) (Auto) 0 % (0-3) Basophils (%) (Auto) 1 % (0-3) Neutrophils # (Auto) 8.4 x10^3/uL (1.8-7.7) Lymphocytes # (Auto) 0.6 x10^3/uL (1.0-4.8) Monocytes # (Auto) 0.5 x10^3/uL (0.0-1.1) Eosinophils # (Auto) 0.0 x10^3/uL (0.0-0.7) Basophils # (Auto) 0.1 x10^3/uL (0.0-0.2) Platelet Estimate Increased (ADEQUATE) Large Platelets Present Hypochromasia Marked Anisocytosis Mod Microcytosis Marked Ovalocytes Occ Assessment and Plan Assessmemt and Plan Problems Medical Problems: (1) Fall at home Status: Acute (2) Intractable pain Status: Acute Comment Review of Relevant I have reviewed the following items gladys (where applicable) has been applied. Labs Laboratory Tests Test 05/04/19 09:57 05/04/19 10:55 Prothrombin Time 13.0 SEC (11.7-14.0) Prothromb Time International Ratio 1.0 (0.8-1.1) Sodium Level 139 mmol/L (136-145) Potassium Level 4.1 mmol/L (3.5-5.1) Chloride Level 102 mmol/L (98-107) Carbon Dioxide Level 21 mmol/L (21-32) Anion Gap 16 (6-14) Blood Urea Nitrogen 14 mg/dL (7-20) Creatinine 0.6 mg/dL (0.6-1.0) Estimated GFR (Cockcroft-Gault) 105.8 BUN/Creatinine Ratio 23 (6-20) Glucose Level 86 mg/dL (70-99) Calcium Level 9.3 mg/dL (8.5-10.1) Total Bilirubin 0.6 mg/dL (0.2-1.0) Aspartate Amino Transf (AST/SGOT) 28 U/L (15-37) Alanine Aminotransferase (ALT/SGPT) 37 U/L (14-59) Alkaline Phosphatase 175 U/L (46-116) Total Protein 8.2 g/dL (6.4-8.2) Albumin 3.9 g/dL (3.4-5.0) Albumin/Globulin Ratio 0.9 (1.0-1.7) Vitamin B12 Level 336 pg/mL (247-911) 25-Hydroxy Vitamin D Total 28.7 ng/mL (30-100) White Blood Count 9.7 x10^3/uL (4.0-11.0) Red Blood Count 4.22 x10^6/uL (3.50-5.40) Hemoglobin 8.0 g/dL (12.0-15.5) Hematocrit 27.3 % (36.0-47.0) Mean Corpuscular Volume 65 fL (79-100) Mean Corpuscular Hemoglobin 19 pg (25-35) Mean Corpuscular Hemoglobin Concent 29 g/dL (31-37) Red Cell Distribution Width 20.6 % (11.5-14.5) Platelet Count 513 x10^3/uL (140-400) Neutrophils (%) (Auto) 87 % (31-73) Lymphocytes (%) (Auto) 7 % (24-48) Monocytes (%) (Auto) 6 % (0-9) Eosinophils (%) (Auto) 0 % (0-3) Basophils (%) (Auto) 1 % (0-3) Neutrophils # (Auto) 8.4 x10^3/uL (1.8-7.7) Lymphocytes # (Auto) 0.6 x10^3/uL (1.0-4.8) Monocytes # (Auto) 0.5 x10^3/uL (0.0-1.1) Eosinophils # (Auto) 0.0 x10^3/uL (0.0-0.7) Basophils # (Auto) 0.1 x10^3/uL (0.0-0.2) Platelet Estimate Increased (ADEQUATE) Large Platelets Present Hypochromasia Marked Anisocytosis Mod Microcytosis Marked Ovalocytes Occ Laboratory Tests Test 05/04/19 09:57 05/04/19 10:55 Prothrombin Time 13.0 SEC (11.7-14.0) Prothromb Time International Ratio 1.0 (0.8-1.1) Sodium Level 139 mmol/L (136-145) Potassium Level 4.1 mmol/L (3.5-5.1) Chloride Level 102 mmol/L (98-107) Carbon Dioxide Level 21 mmol/L (21-32) Anion Gap 16 (6-14) Blood Urea Nitrogen 14 mg/dL (7-20) Creatinine 0.6 mg/dL (0.6-1.0) Estimated GFR (Cockcroft-Gault) 105.8 BUN/Creatinine Ratio 23 (6-20) Glucose Level 86 mg/dL (70-99) Calcium Level 9.3 mg/dL (8.5-10.1) Total Bilirubin 0.6 mg/dL (0.2-1.0) Aspartate Amino Transf (AST/SGOT) 28 U/L (15-37) Alanine Aminotransferase (ALT/SGPT) 37 U/L (14-59) Alkaline Phosphatase 175 U/L (46-116) Total Protein 8.2 g/dL (6.4-8.2) Albumin 3.9 g/dL (3.4-5.0) Albumin/Globulin Ratio 0.9 (1.0-1.7) Vitamin B12 Level 336 pg/mL (247-911) 25-Hydroxy Vitamin D Total 28.7 ng/mL (30-100) White Blood Count 9.7 x10^3/uL (4.0-11.0) Red Blood Count 4.22 x10^6/uL (3.50-5.40) Hemoglobin 8.0 g/dL (12.0-15.5) Hematocrit 27.3 % (36.0-47.0) Mean Corpuscular Volume 65 fL (79-100) Mean Corpuscular Hemoglobin 19 pg (25-35) Mean Corpuscular Hemoglobin Concent 29 g/dL (31-37) Red Cell Distribution Width 20.6 % (11.5-14.5) Platelet Count 513 x10^3/uL (140-400) Neutrophils (%) (Auto) 87 % (31-73) Lymphocytes (%) (Auto) 7 % (24-48) Monocytes (%) (Auto) 6 % (0-9) Eosinophils (%) (Auto) 0 % (0-3) Basophils (%) (Auto) 1 % (0-3) Neutrophils # (Auto) 8.4 x10^3/uL (1.8-7.7) Lymphocytes # (Auto) 0.6 x10^3/uL (1.0-4.8) Monocytes # (Auto) 0.5 x10^3/uL (0.0-1.1) Eosinophils # (Auto) 0.0 x10^3/uL (0.0-0.7) Basophils # (Auto) 0.1 x10^3/uL (0.0-0.2) Platelet Estimate Increased (ADEQUATE) Large Platelets Present Hypochromasia Marked Anisocytosis Mod Microcytosis Marked Ovalocytes Occ Medications Current Medications Ondansetron HCl (Zofran Odt) 4 mg 1X ONCE PO Last administered on 05/04/19 07:50; Start 05/04/19 at 07:30; Stop 05/04/19 at 07:33; Status DC Ketorolac Tromethamine (Toradol Im) 60 mg 1X ONCE IM ; Start 05/04/19 at 07:30; Stop 05/04/19 at 07:37; Status DC Fentanyl Citrate (Fentanyl 2ml Vial) 50 mcg 1X ONCE IM Last administered on 05/04/19 07:50; Start 05/04/19 at 07:45; Stop 05/04/19 at 07:46; Status DC Fentanyl Citrate (Fentanyl 2ml Vial) 50 mcg 1X ONCE IVP Last administered on 05/04/19 09:58; Start 05/04/19 at 09:45; Stop 05/04/19 at 09:49; Status DC Amlodipine Besylate (Norvasc) 10 mg DAILY PO Last administered on 05/04/19 12:30; Start 05/04/19 at 12:00 Cyclobenzaprine HCl (Flexeril) 10 mg PRN TID PRN PO MUSCLE SPASMS Last administered on 05/04/19 19:59; Start 05/04/19 at 11:15 Furosemide (Lasix) 40 mg DAILY PO Last administered on 05/04/19 12:31; Start 05/04/19 at 12:00 Oxycodone/ Acetaminophen (Percocet 5/325) 1 tab PRN Q6HRS PRN PO MODERATE TO SEVERE PAIN Last administered on 05/04/19 22:14; Start 05/04/19 at 11:15 Spironolactone (Aldactone) 25 mg DAILY PO Last administered on 05/04/19 12:30; Start 05/04/19 at 12:00 Lorazepam (Ativan) 0.5 mg PRN Q6HRS PRN PO ANXIETY / AGITATION; Start 05/04/19 at 13:30 Morphine Sulfate (Morphine Sulfate) 2 mg PRN Q4HRS PRN IV PAIN Last administered on 05/04/19at 20:08; Start 05/04/19 at 13:30 Enoxaparin Sodium (Lovenox 40mg Syringe) 40 mg Q24H SQ Last administered on 05/04/19at 16:05; Start 05/04/19 at 15:30 Psyllium Hydrophilic Mucilloid (Metamucil Fiber Packet) 1 pkt QHS PO ; Start 05/04/19 at 21:00 Active Scripts Active Zofran (Ondansetron Hcl) 4 Mg Tablet 1 Tab PO PRN Q6-8HRS Percocet 5-325 Mg Tablet (Oxycodone/Acetaminophen) 1 Each Tablet 1 Tab PO PRN Q6HRS PRN Reported Vitamin B Complex 1 Each Capsule 1 Each PO DAILY Vitamin D (Cholecalciferol (Vitamin D3)) 10,000 Unit Capsule 10,000 Unit PO QSU Cyclobenzaprine Hcl 10 Mg Tablet 1 Tab PO PRN TID PRN Percocet 10-325 Mg Tablet (Oxycodone/Acetaminophen) 1 Each Tablet 1 Tab PO PRN Q6HRS PRN Calcium 600 + Vit D 200 Tablet (Calcium Carbonate/Vitamin D3) 1 Each Tablet 1 Each PO TID Adderall 20 Mg Tablet (Dextroamphetamine/Amphetamine) 20 Mg Tablet 20 Mg PO PRN PRN Nexium Capsule (Esomeprazole Magnesium) 40 Mg Capsule.dr 1 Cap PO DAILY Aldactone (Spironolactone) 25 Mg Tablet 1 Tab PO DAILY Amlodipine Besylate 10 Mg Tablet 10 Mg PO DAILY Lasix (Furosemide) 40 Mg Tablet 40 Mg PO DAILY Vitals/I & O Vital Sign - Last 24 Hours 05/04/19 05/04/19 05/04/19 05/04/19: 11:00 12:30 12:30 Temp 98.1 98.1 Pulse 101 104 104 Resp 16 16 B/P (MAP) 144/81 (102) 152/86 (108) 152/86 Pulse Ox 99 100 O2 Delivery Room Air Room Air Room Air 05/04/19 05/04/19 05/04/19 05/04/19 13:30 15:00 16:04 19:20 Temp 97.8 99.0 97.8 99.0 Pulse 88 110 Resp 16 18 B/P (MAP) 98/45 (62) 142/90 (107) Pulse Ox 97 97 93 O2 Delivery Room Air Room Air Room Air 05/04/19 05/04/19 05/04/19 05/04/19 19:40 20:08 20:38 22:14 O2 Delivery Room Air Room Air Room Air Room Air 05/04/19 05/04/19 05/05/19 05/05/19 23:05 23:14 03:03 04:30 Temp 98.6 98.2 98.6 98.2 Pulse 99 96 Resp 20 20 B/P (MAP) 149/100 (116) 154/100 (118) Pulse Ox 94 97 O2 Delivery Room Air Room Air Room Air Room Air 05/05/19 05/05/19 05:26 07:00 Temp 98.5 98.5 Pulse 92 Resp 18 B/P (MAP) 158/88 (111) Pulse Ox 94 O2 Delivery Room Air Room Air Intake and Output 05/04/19 05/04/19 05/05/19 14:59 22:59 06:59 Intake Total 540 ml Balance 540 ml ZARI SIM MD May 05, 2019 08:28
[2019-05-05] MEDS ORDERED: CYANOCOBALAMIN (VITAMIN B-12) 1,000 MCG/ML VIAL IM ONE (08:30)
[2019-05-05] MEDS ORDERED: CHOLECALCIFEROL (VITAMIN D3) 5,000 UNIT CAPSULE PO SCH (09:00)
[2019-05-05] MEDS ORDERED: IRON POLYSACCHARIDE COMPLEX 150 MG CAPSULE PO SCH (09:00)
[2019-05-05] MEDS: FUROSEMIDE 40 MG TABLET. PO SCH (09:19)
[2019-05-05] MEDS: amLODIPine BESYLATE 10 MG TABLET PO SCH (09:19)
[2019-05-05] MEDS: SPIRONOLACTONE 25 MG TABLET PO SCH (09:19)
[2019-05-05] MEDS ORDERED: LIDOCAINE (700MG/PATCH) PATCH. TD SCH (10:30)
[2019-05-05 11:00] VITALS: BP 159/96
[2019-05-05] MEDS ORDERED: OXYC1TAB15 PO (11:27)
[2019-05-05] MEDS ORDERED: CYCL10TA2 PO (11:27)
[2019-05-05] MEDS ORDERED: IRON150C11 PO (11:30)
[2019-05-05] MEDS ORDERED: CHOL5000 PO (11:30)
--- NOTE | 2019-05-05 11:33 | PDOC3 ---
Discharge Summary Visit Information Date of Admission: May 04, 2019 Date of Discharge: May 05, 2019 Admitting Diagnosis: Right humerus fracture Final Diagnosis Problems Medical Problems: (1) Fall at home Status: Acute (2) Intractable pain Status: Acute Brief Hospital Course Allergies Allergies Coded Allergies Type Severity Reaction Last Updated Verified bee venom protein (honey bee) Allergy Intermediate 07/22/18 No lisinopril Allergy Intermediate 07/22/18 Yes meperidine Allergy Intermediate 07/22/18 Yes Vital Signs Vital Signs Date Time Temp Pulse Resp B/P (MAP) Pulse Ox O2 Delivery O2 Flow Rate FiO2 05/05/19 11:00 98.2 126 20 159/96 (117) 96 Room Air 98.2 Lab Results Laboratory Tests Test 05/04/19 09:57 05/04/19 10:55 Prothrombin Time 13.0 SEC (11.7-14.0) Prothromb Time International Ratio 1.0 (0.8-1.1) Sodium Level 139 mmol/L (136-145) Potassium Level 4.1 mmol/L (3.5-5.1) Chloride Level 102 mmol/L (98-107) Carbon Dioxide Level 21 mmol/L (21-32) Anion Gap 16 (6-14) Blood Urea Nitrogen 14 mg/dL (7-20) Creatinine 0.6 mg/dL (0.6-1.0) Estimated GFR (Cockcroft-Gault) 105.8 BUN/Creatinine Ratio 23 (6-20) Glucose Level 86 mg/dL (70-99) Calcium Level 9.3 mg/dL (8.5-10.1) Total Bilirubin 0.6 mg/dL (0.2-1.0) Aspartate Amino Transf (AST/SGOT) 28 U/L (15-37) Alanine Aminotransferase (ALT/SGPT) 37 U/L (14-59) Alkaline Phosphatase 175 U/L (46-116) Total Protein 8.2 g/dL (6.4-8.2) Albumin 3.9 g/dL (3.4-5.0) Albumin/Globulin Ratio 0.9 (1.0-1.7) Vitamin B12 Level 336 pg/mL (247-911) 25-Hydroxy Vitamin D Total 28.7 ng/mL (30-100) White Blood Count 9.7 x10^3/uL (4.0-11.0) Red Blood Count 4.22 x10^6/uL (3.50-5.40) Hemoglobin 8.0 g/dL (12.0-15.5) Hematocrit 27.3 % (36.0-47.0) Mean Corpuscular Volume 65 fL (79-100) Mean Corpuscular Hemoglobin 19 pg (25-35) Mean Corpuscular Hemoglobin Concent 29 g/dL (31-37) Red Cell Distribution Width 20.6 % (11.5-14.5) Platelet Count 513 x10^3/uL (140-400) Neutrophils (%) (Auto) 87 % (31-73) Lymphocytes (%) (Auto) 7 % (24-48) Monocytes (%) (Auto) 6 % (0-9) Eosinophils (%) (Auto) 0 % (0-3) Basophils (%) (Auto) 1 % (0-3) Neutrophils # (Auto) 8.4 x10^3/uL (1.8-7.7) Lymphocytes # (Auto) 0.6 x10^3/uL (1.0-4.8) Monocytes # (Auto) 0.5 x10^3/uL (0.0-1.1) Eosinophils # (Auto) 0.0 x10^3/uL (0.0-0.7) Basophils # (Auto) 0.1 x10^3/uL (0.0-0.2) Platelet Estimate Increased (ADEQUATE) Large Platelets Present Hypochromasia Marked Anisocytosis Mod Microcytosis Marked Ovalocytes Occ Brief Hospital Course Ms Álvarez is a 48yo F w/ PMHx HTN, s/p gastric bypass who presents with complaining of left arm injury. Patient states she lost her balance while she was at shower last night and had a fall and hit her left upper extremity. Patient denies other injuries or loss of consciousness. Patient complaining of arm and shoulder pain as a constant pain that getting worse with with movement of her arm rated her pain 10 over 10. Patient denies focal neuro deficit, fever and chills, nausea and vomiting. Patient states she took left over of Percocet night prior to admit. 05/04: She already feels improved in sling, but is in 8/10 pain, feels the fent anyl wore off already. 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 Seen by ortho, miesha for non-operative, placed in sling, recommended 6-8 weeks. Feeling like the combination of flexeril and oxycodone has really controlled her pain better. Vitamin D, B12 low and anemic. On replacement therapy. She feels ready to leave the hospital. No SOB or CP. Had a BM this morning A/P: Left humerus fracture - in sling. Pain extreme requiring inpatient management with IV medications for now, awaiting ortho evaluation. Had right arm surgery last year. HTN - can cont meds Anemia - microcytic, iron deficiency, will replace Vitamin D insufficiency - will replace Vitamin B low - will replace IM s/p gastric bypass - will check vitamin D level, possible deficiency. Greater than 30 minutes spent on d/c Discharge Information Condition at Discharge: Improved Follow Up: Weeks (1) Disposition/Orders: D/C to Home Scheduled Amlodipine Besylate (Amlodipine Besylate) 10 Mg Tablet, 10 MG PO DAILY, (Reported) Entered as Reported by: NASEEM DEMARCO on 03/05/182213 Last Action: Continued on 05/04/191102 by ZARI SIM MD Calcium Carbonate/Vitamin D3 (Calcium 600 + Vit D 200 Tablet) 1 Each Tablet, 1 EACH PO TID for SUPPLEMENT, (Reported) Entered as Reported by: CLINTON ADAMES on 07/17/18 1334 Cholecalciferol (Vitamin D3) (Vitamin D) 10,000 Unit Capsule, 10,000 UNIT PO QSU for SUPPLEMENT, (Reported) Entered as Reported by: CLINTON ADAMES on 07/17/18 1339 Cholecalciferol (Vitamin D3) (Vitamin D3) 5,000 Unit Capsule, 5,000 UNIT PO DAILY for Vitamin D insufficiency for 30 Days, #30 Ref 5 Prescribed by: ZARI SIM MD on 05/05/19 1130 Esomeprazole Magnesium (Nexium Capsule) 40 Mg Capsule.dr, 1 CAP PO DAILY for HELP STOMACH, #30 Ref 5 (Reported) Entered as Reported by: CLINTON ADAMES on 07/17/18 1328 Furosemide (Lasix) 40 Mg Tablet, 40 MG PO DAILY, (Reported) Entered as Reported by: NASEEM DEMARCO on 03/05/182213 Last Action: Continued on 05/04/191102 by ZARI SIM MD Iron Polysaccharides Complex (Poly-Iron) 150 Mg Capsule, 150 MG PO DAILY for TANIYA for 30 Days, #30 Ref 5 Prescribed by: ZARI SIM MD on 05/05/19 1130 Ondansetron Hcl (Zofran) 4 Mg Tablet, 1 TAB PO PRN Q6-8HRS for nausea, #12 Prescribed by: BEKA NAVARRO MD on 05/04/19 0853 Spironolactone (Aldactone) 25 Mg Tablet, 1 TAB PO DAILY for HYPERTENSION, #90 Ref 1 (Reported) Entered as Reported by: CLINTON ADAMES on 07/17/18 1327 Last Action: Continued on 05/04/19 1103 by ZARI SIM MD Vitamin B Complex (Vitamin B Complex) 1 Each Capsule, 1 EACH PO DAILY for SUPPLEMENT, (Reported) Entered as Reported by: CLINTON ADAMES on 07/17/18 1339 Scheduled PRN Cyclobenzaprine Hcl (Cyclobenzaprine Hcl) 10 Mg Tablet, 1 TAB PO PRN TID PRN for MUSCLE SPASMS for 10 Days, #30 Prescribed by: ZARI SIM MD on 05/05/19 1127 Dextroamphetamine/Amphetamine (Adderall 20 Mg Tablet) 20 Mg Tablet, 20 MG PO PRN PRN for HELP EMOTION, (Reported) Entered as Reported by: CLINTON ADAMES on 07/17/18 1333 Oxycodone/Apap 5-325 (Percocet 5-325 Mg Tablet ) 1 Each Tablet, 1 TAB PO PRN Q6HRS PRN for PAIN for 6 Days, #20 Ref 0 Prescribed by: ZARI SIM MD on 05/05/19 1127 Discontinued Medications Oxycodone/Apap 10-325 (Percocet 10-325 Mg Tablet ) 1 Each Tablet, 1 TAB PO PRN Q6HRS PRN for PAIN, Ref 0 (Reported) Entered as Reported by: CLINTON ADAMES on 07/17/18 1335 ZARI SIM MD May 05, 2019 11:33
--- NOTE | 2019-05-05 12:27 | NUR ---
SS following for discharge planning. SS reviewed pt chart. Pt is from home with spouse and is currently on room air. SS will continue to follow for discharge planning.
--- NOTE | 2019-05-05 15:11 | NUR ---
Pt left unit with by ambulation. Pt left via private vehicle. IV removed with no complications. Pt stable upon discharge. Discharge instructions discussed and additional concerns addressed.
[2019-05-05] MEDS ORDERED: PATCH REMOVAL. MC SCH (21:00)
== END 2019-05-05 15:14 | disposition home or self-care (01) | DRG 563 ==
LOC: ER 07:15 → 4 NORTH 09:00
PROVIDERS: ADMIT Internal Medicine; ATTEND Internal Medicine
PROC: 2W3BX1Z Immobilization of Left Upper Arm using Splint (ICD-10-PCS; principal; 2019-05-04)
DX: S42.202A Unspecified fracture of upper end of left humerus, initial encounter for closed fracture (principal); E55.9 Vitamin D deficiency, unspecified; D50.9 Iron deficiency anemia, unspecified; W18.30XA Fall on same level, unspecified, initial encounter; I10 Essential (primary) hypertension; Z90.710 Acquired absence of both cervix and uterus; Z90.49 Acquired absence of other specified parts of digestive tract; Z98.84 Bariatric surgery status; Y93.89 Activity, other specified; Y92.009 Unspecified place in unspecified non-institutional (private) residence as the place of occurrence of the external cause; Y99.8 Other external cause status; Z82.49 Family history of ischemic heart disease and other diseases of the circulatory system; Z83.49 Family history of other endocrine, nutritional and metabolic diseases; Z88.8 Allergy status to other drugs, medicaments and biological substances; Z91.030 Bee allergy status
CPT/HCPCS: 36415; 73030; 80053; 82306; 82607; 85025; 85610; J1650; J2270; J3010; J3420; Q0162; G0378

== ENCOUNTER 2020-05-27 11:33 | Inpatient (IN) | payer BC ==
[~2020-05-27] VITALS: Ht 165.1 cm; Wt 110.0 kg
[~2020-05-27 11:33] MED LIST changes: +AMLO-187 PO; -AMLO10TA8 PO; +CALC-627 PO; -CALC1TAB75 PO; +CHOL5000 PO; +IRON150C11 PO; +ONDA4TAB7 PO; +OXYC1TAB15 PO
--- NOTE | 2020-05-27 13:22 | RAD ---
CHEST AP ONLY History: Reason: pui, soa / Spl. Instructions: / History: Comparison: Left shoulder radiograph November 01, 2019 Findings: No consolidation or pleural effusion. Normal heart size. No pneumothorax. Prior granulomatous disease within the chest. Chronic deformity of the left proximal humerus. Impression: 1. No acute cardiopulmonary process. Electronically signed by: Mitchell Garcia DO (05/27/2020 1:19 PM) [facility] [place]
[2020-05-27 13:24] LABS: BASO # 0.1 x10^3/uL (0.0-0.2); BASO % 1 % (0-3); EOS # 0.1 x10^3/uL (0.0-0.7); EOS % 2 % (0-3); HEMATOCRIT 25.5 % (36.0-47.0); HEMOGLOBIN 7.5 g/dL (12.0-15.5); LYMPH % 36 % (24-48); MEAN CORPUSCULAR HEMOGLOBIN 19 pg (25-35); MEAN CORPUSCULAR HGB CONC 30 g/dL (31-37); MEAN CORPUSCULAR VOLUME 65 fL (79-100); MONO # 0.4 x10^3/uL (0.0-1.1); MONO % 8 % (0-9); NEUT # 3.1 x10^3/uL (1.8-7.7); NEUT % 54 % (31-73); PLATELET COUNT 247 x10^3/uL (140-400); RED BLOOD COUNT 3.91 x10^6/uL (3.50-5.40); RED CELL DISTRIBUTION WIDTH 19.8 % (11.5-14.5); WHITE BLOOD COUNT 5.7 x10^3/uL (4.0-11.0)
[2020-05-27 13:30] LABS: CALCIUM 9.3 mg/dL (8.5-10.1); CREATININE 0.7 mg/dL (0.6-1.0); GFR 88.2; POTASSIUM 3.4 mmol/L (3.5-5.1)
[2020-05-27] MEDS ORDERED: IOHEXOL 350 MG/ML 100 ML VIAL. IV ONE (13:30)
[2020-05-27 13:34] LABS: BILIRUBIN,URINE NEGATIVE (NEG); CLARITY,URINE CLOUDY; COLOR,URINE AMBER; NITRITE,URINE POSITIVE (NEG); PH,URINE 5.5 (<5.0-8.0); PROTEIN,URINE 30 mg/dL (NEG-TRACE)
[2020-05-27 13:35] LABS: PROTHROMBIN TIME PATIENT 12.5 SEC (11.7-14.0)
[2020-05-27 13:36] LABS: ALBUMIN 3.4 g/dL (3.4-5.0); ALBUMIN/GLOBULIN RATIO 0.9 (1.0-1.7); TOTAL BILIRUBIN 0.4 mg/dL (0.2-1.0); TOTAL PROTEIN 7.2 g/dL (6.4-8.2)
[2020-05-27] MEDS ORDERED: CONTRAST GIVEN. MC PRN (13:45)
[2020-05-27] MEDS ORDERED: fentaNYL PF VIAL 100 MCG/2 ML VIAL IV ONE (14:00)
[2020-05-27] MEDS ORDERED: IV NORMAL SALINE 1000ML BAG 1,000 ML IV ONE (14:00)
[2020-05-27] MEDS ORDERED: ONDANSETRON PF 4 MG/2 ML VIAL. IV ONE (14:00)
[2020-05-27 14:02] LABS: HYALINE CASTS, URINE MANY /HPF
[2020-05-27 14:03] LABS: BACTERIA,URINE MANY /HPF (0-FEW); RBC,URINE 0 /HPF (0-2); WBC,URINE TNTC /HPF (0-4)
[2020-05-27] MEDS ORDERED: cefTRIAXone IV Push 1 GM VIAL. IVP ONE (15:00)
[2020-05-27 15:01] LABS: C-REACTIVE PROTEIN 3.6 mg/L (0-3.3)
--- NOTE | 2020-05-27 15:25 | RAD ---
CTA abdomen pelvis with bilateral lower extremity runoff dated 05/27/2020. No comparison available. CLINICAL INDICATION: Pain after injury. Left groin hematoma. TECHNIQUE: Contiguous axial imaging of the abdomen pelvis and bilateral lower extremity performed following the bolus administration of 95 cc Omnipaque 350. Study was performed as dedicated CTA with thin cut coronal and sagittal reconstructions and 3-D rotational reconstruction. One or more of the following individualized dose reduction techniques were utilized for this examination: 1. Automated exposure control 2. Adjustment of the mA and/or kV according to patient size 3. Use of iterative reconstruction technique. FINDINGS: Contrast bolus is adequate. Abdominal aorta normal in caliber. There is mild scattered calcific atherosclerotic plaque. No stenosis or aneurysm. The celiac artery and SMA are patent. Bilateral renal arteries are patent. The HERNANDEZ is patent. Common iliac arteries show minimal scattered calcific plaquing. The bilateral internal iliac arteries and external iliac arteries are patent. Bilateral common femoral arteries and superficial femoral arteries are patent. No evidence of active contrast extravasation or pseudoaneurysm. The bilateral popliteal artery are patent. There is a three-vessel runoff bilateral calf. There is a moderate amount of edema in the subcutaneous tissues of the upper anterior thigh on the left. There is an ovoid hyperdense collection within the subcutaneous tissues anteriorly that measures up to 7.7 cm maximum dimension. No definite arterial feeder leading up to the collection. The venous system is not well evaluated due to phase of enhancement. Images of lung bases are clear. Heart size within normal limits. No pleural or pericardial effusion. Diffuse low-density of the liver compatible with fatty infiltration. No apparent mass. Biliary tree normal in caliber. The gallbladder is surgically absent. Spleen is normal in size. Pancreas, adrenal glands and kidneys are unremarkable. No hydronephrosis. Unopacified GI tract normal in caliber and contour. No focal bowel wall thickening. No inflammatory stranding in the mesentery. No ascites or lymphadenopathy. Images of pelvis show diffuse wall thickening of the urinary bladder. Uterus is surgically absent. No free fluid or pelvic adenopathy. Bone windows show no acute findings. Mild multilevel spondylosis. Indeterminate sclerotic focus at the supra-acetabular right iliac bone without bone destruction. IMPRESSION: 1. Hyperdense collection within the anterior left thigh subcutaneous tissues, consistent with hematoma. There is no evidence of active contrast extravasation or pseudoaneurysm. 2. No evidence of hemodynamically significant stenosis or aneurysm. There is minimal atherosclerotic plaquing within the abdominal aorta and bilateral common iliac arteries. 3. Fatty infiltration of the liver. 4. Status post cholecystectomy and hysterectomy with evidence of prior gastric bypass. Electronically signed by: Shad Kiran MD (05/27/2020 3:23 PM) [id number]
[2020-05-27 15:28] LABS: HYPOCHROMIA MARKED; PLT ESTIMATE ADEQUATE (ADEQUATE); POLYCHROMASIA SLIGHT
[2020-05-27 15:29] LABS: ANISOCYTOSIS SLIGHT; MICROCYTOSIS MARKED
[2020-05-27] MEDS ORDERED: MORPHINE SULFATE 4 MG/ML VIAL. IV ONE (15:30)
--- NOTE | 2020-05-27 17:29 | ED.ADGEN ---
Past Medical History Past Medical History: Hypertension Past Surgical History: Appendectomy, Gastric Bypass, Hysterectomy Additional Past Surgical Histo: RIGHT SHOULDER FX REPAIR Smoking Status: Never Smoker Alcohol Use: Occasionally Drug Use: None General Adult EDM: Chief Complaint: SHORTNESS OF BREATH HPI: HPI: Patient is a 49 year old female who presents to the emergency room via EMS with complaints of generalized weakness, fatigue, and dry cough for the last 4 days. 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 She reports that she was tested for Covid 2 days ago but does not have the results. Patient states that yesterday she slipped and fell onto a [employer] lawn ornament and hit her left groin on it. She immediately noticed some bruising to her left groin last night but reports that it significantly increased throughout the night and there is now a large hematoma present. Patient states that there is a lot of pressure in her left hip that increases with weightbearing. She denies any numbness, tingling, or shooting pain in her left lower extremity. The patient denies any abdominal pain, nausea, vomiting, diarrhea, back pain, chest pain, or palpitations. She reports increased urine frequency and severe urine urgency for the last 2 weeks. Patient states she has had difficulty getting to the bathroom before she loses continence. She denies any dysuria, hematuria, or foul-smelling urine. She currently complains of pain in her left hip that she rates a 9 out of 10 on the pain scale, she denies any alleviating factors the pain is worse with palpation and movement. Review of Systems: Review of Systems: Complete ROS is negative unless otherwise noted in HPI. Current Medications: Current Medications Medications (Trade) Dose Ordered Sig/Ulysses Start Time Stop Time Status Last Admin Dose Admin Ceftriaxone Sodium (Rocephin) 1 gm 1X ONCE 05/27/20 15:00 05/27/20 15:01 DC 05/27/20 15:47 1 GM Fentanyl Citrate (Fentanyl 2ml Vial) 50 mcg 1X ONCE 05/27/20 14:00 05/27/20 14:01 DC 05/27/20 14:07 50 MCG Info (CONTRAST GIVEN -- Rx MONITORING) 1 each PRN DAILY PRN 05/27/20 13:45 05/29/20 13:44 Iohexol (Omnipaque 350 Mg/ml) 95 ml 1X ONCE 05/27/20 13:30 05/27/20 13:32 DC 05/27/20 14:50 95 ML Morphine Sulfate (Morphine Sulfate) 2 mg PRN Q2HR PRN 05/27/20 04:00 05/28/20 03:59 05/27/20 19:48 2 MG Ondansetron HCl (Zofran) 4 mg PRN Q8HRS PRN 05/27/20 17:30 05/27/20 19:44 DC Sodium Chloride 1,000 ml @ 1,000 mls/hr 1X ONCE 05/27/20 14:00 05/27/20 14:59 DC 05/27/20 14:06 1,000 MLS/HR Allergies: Allergies: Allergies Coded Allergies Type Severity Reaction Last Updated Verified bee venom protein (honey bee) Allergy Intermediate 07/22/18 No lisinopril Allergy Intermediate 07/22/18 Yes meperidine Allergy Intermediate 07/22/18 Yes Physical Exam: PE: See AboveSee Above Constitutional: Well developed, well nourished, no acute distress, non-toxic appearance, obese. [] HENT: Normocephalic, atraumatic, bilateral external ears normal, nose normal. [] Eyes: PERRLA, EOMI, conjunctiva normal, no discharge. [] Neck: Normal range of motion, no stridor. [] Cardiovascular:Heart rate regular rhythm, no murmur [] Lungs & Thorax: Respirations even and unlabored, no retractions, no respiratory distress Abdomen: Bowel sounds normal, soft, no tenderness, no masses, no pulsatile masses. [] Skin: Warm, dry; large hematoma noted to left inguinal area, cap refill less than 2 seconds Back: No tenderness, no CVA tenderness. [] Extremities: LLE: No bony tenderness, no cyanosis, no clubbing, ROM intact, 1+ edema to left upper leg 2+ pedal pulse, cap refill less than 2 seconds. [] Neurologic: Alert and oriented X 3, normal motor function, normal sensory function, no focal deficits noted. [] Psychologic: Affect normal, judgement normal, mood normal. [] Current Patient Data: Labs: Laboratory Tests Test 05/27/20 12:20 05/27/20 12:45 Urine Collection Type Unknown Urine Color Susana Urine Clarity Cloudy Urine pH 5.5 (<5.0-8.0) Urine Specific [place] 1.020 (1.000-1.030) Urine Protein 30 mg/dL (NEG-TRACE) Urine Glucose (UA) Negative mg/dL (NEG) Urine Ketones (Stick) 15 mg/dL (NEG) Urine Blood Trace (NEG) Urine Nitrite Positive (NEG) Urine Bilirubin Negative (NEG) Urine Urobilinogen Dipstick 1.0 mg/dL (0.2 mg/dL) Urine Leukocyte Esterase Large (NEG) Urine RBC 0 /HPF (0-2) Urine WBC Tntc /HPF (0-4) Urine Squamous Epithelial Cells Many /LPF Urine Bacteria Many /HPF (0-FEW) Urine Hyaline Casts Many /HPF Urine Mucus Marked /LPF White Blood Count 5.7 x10^3/uL (4.0-11.0) Red Blood Count 3.91 x10^6/uL (3.50-5.40) Hemoglobin 7.5 g/dL (12.0-15.5) L Hematocrit 25.5 % (36.0-47.0) L Mean Corpuscular Volume 65 fL (79-100) L Mean Corpuscular Hemoglobin 19 pg (25-35) L Mean Corpuscular Hemoglobin Concent 30 g/dL (31-37) L Red Cell Distribution Width 19.8 % (11.5-14.5) H Platelet Count 247 x10^3/uL (140-400) Neutrophils (%) (Auto) 54 % (31-73) Lymphocytes (%) (Auto) 36 % (24-48) Monocytes (%) (Auto) 8 % (0-9) Eosinophils (%) (Auto) 2 % (0-3) Basophils (%) (Auto) 1 % (0-3) Neutrophils # (Auto) 3.1 x10^3/uL (1.8-7.7) Lymphocytes # (Auto) 2.0 x10^3/uL (1.0-4.8) Monocytes # (Auto) 0.4 x10^3/uL (0.0-1.1) Eosinophils # (Auto) 0.1 x10^3/uL (0.0-0.7) Basophils # (Auto) 0.1 x10^3/uL (0.0-0.2) Platelet Estimate Adequate (ADEQUATE) Polychromasia Slight Hypochromasia Marked Anisocytosis Slight Microcytosis Marked Macrocytosis Slight Prothrombin Time 12.5 SEC (11.7-14.0) Prothrombin Time INR 1.0 (0.8-1.1) Activated Partial Thromboplast Time 25 SEC (24-38) Sodium Level 142 mmol/L (136-145) Potassium Level 3.4 mmol/L (3.5-5.1) L Chloride Level 101 mmol/L (98-107) Carbon Dioxide Level 25 mmol/L (21-32) Anion Gap 16 (6-14) H Blood Urea Nitrogen 7 mg/dL (7-20) Creatinine 0.7 mg/dL (0.6-1.0) Estimated GFR (Cockcroft-Gault) 88.2 BUN/Creatinine Ratio 10 (6-20) Glucose Level 94 mg/dL (70-99) Calcium Level 9.3 mg/dL (8.5-10.1) Ferritin 30 ng/mL (8-252) Total Bilirubin 0.4 mg/dL (0.2-1.0) Aspartate Amino Transferase (AST) 92 U/L (15-37) H Alanine Aminotransferase (ALT) 83 U/L (14-59) H Alkaline Phosphatase 140 U/L (46-116) H C-Reactive Protein, Quantitative 3.6 mg/L (0-3.3) H Total Protein 7.2 g/dL (6.4-8.2) Albumin 3.4 g/dL (3.4-5.0) Albumin/Globulin Ratio 0.9 (1.0-1.7) L Laboratory Tests 05/27/20 12:45 Laboratory Tests 05/27/20 12:45 Vital Signs: Vital Signs Date Time Temp Pulse Resp B/P (MAP) Pulse Ox O2 Delivery O2 Flow Rate FiO2 05/27/20 16:55 107 20 132/78 (96) 95 Room Air 05/27/20 13:57 98.8 98.8 EKG: EKG: [] Heart Score: Risk Factors: Risk Factors: DM, Current or recent (<one month) smoker, HTN, HLP, family history of CAD, obesity. Risk Scores: Score 0 - 3: 2.5% MACE over next 6 weeks - Discharge Home Score 4 - 6: 20.3% MACE over next 6 weeks - Admit for Clinical Observation Score 7 - 10: 72.7% MACE over next 6 weeks - Early Invasive Strategies Radiology/Procedures: Radiology/Procedures: PROCEDURE: CT ANGIO ABD ILEO/FEMOR RUNOFF CTA abdomen pelvis with bilateral lower extremity runoff dated 05/27/2020. No comparison available. CLINICAL INDICATION: Pain after injury. Left groin hematoma. TECHNIQUE: Contiguous axial imaging of the abdomen pelvis and bilateral lower extremity performed following the bolus administration of 95 cc Omnipaque 350. Study was performed as dedicated CTA with thin cut coronal and sagittal reconstructions and 3-D rotational reconstruction. One or more of the following individualized dose reduction techniques were utilized for this examination: 1. Automated exposure control 2. Adjustment of the mA and/or kV according to patient size 3. Use of iterative reconstruction technique. FINDINGS: Contrast bolus is adequate. Abdominal aorta normal in caliber. There is mild scattered calcific atherosclerotic plaque. No stenosis or aneurysm. The celiac artery and SMA are patent. Bilateral renal arteries are patent. The HERNANDEZ is patent. Common iliac arteries show minimal scattered calcific plaquing. The bilateral internal iliac arteries and external iliac arteries are patent. Bilateral common femoral arteries and superficial femoral arteries are patent. No evidence of active contrast extravasation or pseudoaneurysm. The bilateral popliteal artery are patent. There is a three-vessel runoff bilateral calf. There is a moderate amount of edema in the subcutaneous tissues of the upper anterior thigh on the left. There is an ovoid hyperdense collection within the subcutaneous tissues anteriorly that measures up to 7.7 cm maximum dimension. No definite arterial feeder leading up to the collection. The venous system is not well evaluated due to phase of enhancement. Images of lung bases are clear. Heart size within normal limits. No pleural or pericardial effusion. Diffuse low-density of the liver compatible with fatty infiltration. No apparent mass. Biliary tree normal in caliber. The gallbladder is surgically absent. Spleen is normal in size. Pancreas, adrenal glands and kidneys are unremarkable. No hydronephrosis. Unopacified GI tract normal in caliber and contour. No focal bowel wall thickening. No inflammatory stranding in the mesentery. No ascites or lymphadenopathy. Images of pelvis show diffuse wall thickening of the urinary bladder. Uterus is surgically absent. No free fluid or pelvic adenopathy. Bone windows show no acute findings. Mild multilevel spondylosis. Indeterminate sclerotic focus at the supra-acetabular right iliac bone without bone destruction. IMPRESSION: 1. Hyperdense collection within the anterior left thigh subcutaneous tissues, consistent with hematoma. There is no evidence of active contrast extravasation or pseudoaneurysm. 2. No evidence of hemodynamically significant stenosis or aneurysm. There is minimal atherosclerotic plaquing within the abdominal aorta and bilateral common iliac arteries. 3. Fatty infiltration of the liver. 4. Status post cholecystectomy and hysterectomy with evidence of prior gastric bypass. [] PROCEDURE: CHEST AP ONLY CHEST AP ONLY History: Reason: pui, soa / Spl. Instructions: / History: Comparison: Left shoulder radiograph November 01, 2019 Findings: No consolidation or pleural effusion. Normal heart size. No pneumothorax. Prior granulomatous disease within the chest. Chronic deformity of the left proximal humerus. Impression: 1. No acute cardiopulmonary process. Course & Med Decision Making: Course & Med Decision Making Pertinent Labs and Imaging studies reviewed. (See chart for details) [id number] with Dr. Shaw who is the admitting physician, and care was assumed following discussion of patient. Will admit patient for PUI, left groin hematoma, UTI, will put in for surgical consulT and order a surgical Covid swab Patient's vital signs stable. Patient remains afebrile, appears nontoxic, respirations even and unlabored. Patient will be admitted to the med/surgical floor. Patient's case and plan of care also discussed with Dr. Jones [] Cristina Disclaimer: Cristina Disclaimer: This electronic medical record was generated, in whole or in part, using a voice recognition dictation system. Departure Departure Impression: Primary Impression: Person under investigation for COVID-19 Additional Impressions: Traumatic hematoma of groin UTI (urinary tract infection) Disposition: ADMITTED INPT THIS HOSP Admitting Physician: JAMES Mckinnon) Condition: STABLE Referrals: ARVIN GONG MD (PCP) Problem Qualifiers Additional Impressions: Traumatic hematoma of groin Encounter type: initial encounter Qualified Codes: S30.1XXA - Contusion of abdominal wall, initial encounter UTI (urinary tract infection) Urinary tract infection type: acute cystitis Hematuria presence: without hematuria Qualified Codes: N30.00 - Acute cystitis without hematuria VINITA ANNE COAGULATION OPERATOR May 27, 2020 17:29
[2020-05-27] MEDS ORDERED: ONDANSETRON PF 4 MG/2 ML VIAL. IV PRN (17:30)
[2020-05-27] MEDS ORDERED: MORPHINE SULFATE 2 MG/ML VIAL. IV PRN ×2 (17:30→19:45)
[2020-05-27] MEDS ORDERED: SENNOSIDES 8.6 MG TABLET PO PRN (19:45)
[2020-05-27] MEDS ORDERED: DEXTROSE 50% 25 GM / 50ML DISP.SYRIN. IV PRN (19:45)
[2020-05-27] MEDS ORDERED: DOCUSATE SODIUM 100 MG CAPSULE. PO PRN (19:45)
[2020-05-27] MEDS: MORPHINE SULFATE 4 MG/ML VIAL. IV PRN (19:48)
[2020-05-27] MEDS ORDERED: CYCLOBENZAPRINE 10 MG TABLET. PO PRN (20:00)
--- NOTE | 2020-05-27 20:00 | PDOC1 ---
History and Physical Date of Service: DOS: DATE: 05/27/20 TIME: 19:45 Chief Complaint: Chief Complain: Fall History of Present Illness: HPI: Patient is a 49-year-old female with past medical history of hypertension and a fall in the past that resulted in a right shoulder fracture who presents today after she fell from standing and landed on a plant pot on her front porch. Patient states that she landed on her left groin area and she noticed immediately a bruise and hematoma formed. 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 She does not have any loss of consciousness or dizziness prior to her fall. She does feel unsteady at times when she is moving and she tries to brace herself when she falls. Denies any vertigo. For the past 2 weeks she does endorse frequency with her urination. But denies any fevers, shortness of breath, dysuria, or hematuria. 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 Patient states that she was recently tested with a rapid Covid test and it was found to be negative today. Past Medical/Surgical History: PMH/PSH: Past Medical History: Hypertension Past Surgical History: Appendectomy, Gastric Bypass, Hysterectomy, RIGHT SHOULDER FX REPAIR Allergies: Allergies: Coded Allergies: bee venom protein (honey bee) (Unverified Allergy, Intermediate, 07/22/18) lisinopril (Verified Allergy, Intermediate, 07/22/18) meperidine (Verified Allergy, Intermediate, 07/22/18) Family History: Family History: Reviewed and no relevant findings Social History: Social History: Smoking Status: Never Smoker Alcohol Use: Occasionally Drug Use: None Current Medications: Current Medications Current Medications Iohexol (Omnipaque 350 Mg/ml) 95 ml 1X ONCE IV Last administered on 05/27/20at 14:50; Start 05/27/20 at 13:30; Stop 05/27/20 at 13:32; Status DC Info (CONTRAST GIVEN -- Rx MONITORING) 1 each PRN DAILY PRN MC SEE COMMENTS; Start 05/27/20 at 13:45; Stop 05/29/20 at 13:44 Sodium Chloride 1,000 ml @ 1,000 mls/hr 1X ONCE IV Last administered on 05/27/20at 14:06; Start 05/27/20 at 14:00; Stop 05/27/20 at 14:59; Status DC Ondansetron HCl (Zofran) 4 mg 1X ONCE IV Last administered on 05/27/20at 14:06; Start 05/27/20 at 14:00; Stop 05/27/20 at 14:01; Status DC Fentanyl Citrate (Fentanyl 2ml Vial) 50 mcg 1X ONCE IV Last administered on 05/27/20at 14:07; Start 05/27/20 at 14:00; Stop 05/27/20 at 14:01; Status DC Ceftriaxone Sodium (Rocephin) 1 gm 1X ONCE IVP Last administered on 05/27/20at 15:47; Start 05/27/20 at 15:00; Stop 05/27/20 at 15:01; Status DC Morphine Sulfate (Morphine Sulfate) 4 mg 1X ONCE IV Last administered on 05/27/20at 15:48; Start 05/27/20 at 15:30; Stop 05/27/20 at 15:31; Status DC Ondansetron HCl (Zofran) 4 mg PRN Q8HRS PRN IV NAUSEA/VOMITING; Start 05/27/20 at 17:30; Stop 05/28/20 at 17:29 Morphine Sulfate (Morphine Sulfate) 2 mg PRN Q2HR PRN IV PAIN; Start 05/27/20 at 17:30; Stop 05/28/20 at 17:29 Sennosides (Senna) 17.2 mg PRN BID PRN PO CONSTIPATION; Start 05/27/20 at 19:45 Docusate Sodium (Colace) 100 mg PRN DAILY PRN PO HARD STOOLS; Start 05/27/20 at 19:45 Ondansetron HCl (Zofran) 4 mg PRN Q6HRS PRN IVP NAUSEA/VOMITING; Start 05/27/20 at 19:45 Dextrose (Dextrose 50%-Water Syringe) 12.5 gm PRN Q15MIN PRN IV SEE COMMENTS; Start 05/27/20 at 19:45 Acetaminophen (Tylenol) 650 mg PRN Q4HRS PRN PO TEMP OVER 100.4F OR MILD PAIN; Start 05/27/20 at 19:45 Enoxaparin Sodium (Lovenox 40mg Syringe) 40 mg Q24H SQ ; Start 05/27/20 at 21:00 Pantoprazole Sodium (Protonix) 40 mg DAILYAC PO ; Start 05/28/20 at 07:30; Status UNV Ascorbic Acid (Vitamin C) 500 mg DAILY PO ; Start 05/28/20 at 09:00; Status UNV Thiamine HCl 100 mg/Dextrose 51 ml @ 102 mls/hr DAILY IV ; Start 05/28/20 at 09:00; Status UNV Ceftriaxone Sodium (Rocephin) 1 gm Q24H IVP ; Start 05/27/20 at 19:45; Status UNV Morphine Sulfate (Morphine Sulfate) 1 mg PRN Q1HR PRN IV PAIN; Start 05/27/20 at 19:45; Status UNV Morphine Sulfate (Morphine Sulfate) 2 mg PRN Q2HR PRN IV SEVERE PAIN 7-10; Start 05/27/20 at 04:00; Stop 05/28/20 at 03:59; Status UNV Active Scripts Active Vitamin D3 (Cholecalciferol (Vitamin D3)) 5,000 Unit Capsule 5,000 Unit PO DAILY 30 Days Poly-Iron (Iron Polysaccharides Complex) 150 Mg Capsule 150 Mg PO DAILY 30 Days Percocet 5-325 Mg Tablet (Oxycodone/Acetaminophen) 1 Each Tablet 1 Tab PO PRN Q6HRS PRN 6 Days Cyclobenzaprine Hcl 10 Mg Tablet 1 Tab PO PRN TID PRN 10 Days Zofran (Ondansetron Hcl) 4 Mg Tablet 1 Tab PO PRN Q6-8HRS Reported Vitamin B Complex 1 Each Capsule 1 Each PO DAILY Vitamin D (Cholecalciferol (Vitamin D3)) 10,000 Unit Capsule 10,000 Unit PO QSU Calcium 600 + Vit D 200 Tablet (Calcium Carbonate/Vitamin D3) 1 Each Tablet 1 Each PO TID Adderall 20 Mg Tablet (Dextroamphetamine/Amphetamine) 20 Mg Tablet 20 Mg PO PRN PRN Nexium Capsule (Esomeprazole Magnesium) 40 Mg Capsule.dr 1 Cap PO DAILY Aldactone (Spironolactone) 25 Mg Tablet 1 Tab PO DAILY Amlodipine Besylate 10 Mg Tablet 10 Mg PO DAILY Lasix (Furosemide) 40 Mg Tablet 40 Mg PO DAILY ROS: Review of Systems Review of System REVIEW OF SYSTEMS: GENERAL: Denies weakness SKIN: No bruising, hair changes or rashes. EYES: No blurred, double or loss of vision. NOSE AND THROAT: No history of nosebleeds, hoarseness or sore throat. HEART: No history of palpitations, chest pain or shortness of breath on exertion. LUNGS: Denies cough, hemoptysis, wheezing or shortness of breath. GASTROINTESTINAL: Denies changes in appetite, nausea, vomiting, diarrhea or constipation. GENITOURINARY: No history of frequency, urgency, hesitancy or nocturia. NEUROLOGIC: Denies history of numbness, tingling, or tremor. PSYCHIATRIC: No history of panic, anxiety or depression. ENDOCRINE: No history of heat or cold intolerance, polyuria or polydipsia. EXTREMITIES: Denies joint pain, pain on walking or stiffness. Physical Exam: Vital Signs: Vital Signs Date Time Temp Pulse Resp B/P (MAP) Pulse Ox O2 Delivery O2 Flow Rate FiO2 05/27/20 16:55 107 20 132/78 (96) 95 Room Air 05/27/20 13:57 98.8 98.8 Physcial Exam: GEN: No apparent distress. Alert and oriented HEENT: Normal cephalic, atraumatic, external auditory canals are patent EYES: Extraocular muscles are intact, pupil are equally round and reactive to light and accommodation MUSCULOSKELETAL: Well developed , well nourished, good range of motion ENDOCRINE: No thyromegaly was palpated LYMPHATICS: No cervical chain or axillary nodes were noted HEMATOPOIETIC: No bruising NECK: Supple, no JVD, no thyromegaly was noted LUNGS: Clear to auscultation in all lung [place] without rhonchi or wheezing HEART: RRR, S!, S2 present. Peripheral pulses intact, no obvious murmurs noted ABDOMEN: Soft, nontender. Positive bowel sounds, no organomegaly, normal bowel sounds EXTREMITIES: Without clubbing, cyanosis, or edema. Pedal pulses intact. Negative Homans sign NEUROLOGIC: Normal speech and tone. A&O x 3, moves all extremities, no obvious focal deficits PSYCHIATRIC: Normal affect, normal mood. Stable SKIN: No ulcerations or rashes, good skin turgor, no jaundice VASCULAR: Good capillary refill, neurovascular bundle appears to be intact Labs: Labs: Laboratory Tests Test 05/27/20 12:20 05/27/20 12:45 Urine Collection Type Unknown Urine Color Susana Urine Clarity Cloudy Urine pH 5.5 (<5.0-8.0) Urine Specific [place] 1.020 (1.000-1.030) Urine Protein 30 mg/dL (NEG-TRACE) Urine Glucose (UA) Negative mg/dL (NEG) Urine Ketones (Stick) 15 mg/dL (NEG) Urine Blood Trace (NEG) Urine Nitrite Positive (NEG) Urine Bilirubin Negative (NEG) Urine Urobilinogen Dipstick 1.0 mg/dL (0.2 mg/dL) Urine Leukocyte Esterase Large (NEG) Urine RBC 0 /HPF (0-2) Urine WBC Tntc /HPF (0-4) Urine Squamous Epithelial Cells Many /LPF Urine Bacteria Many /HPF (0-FEW) Urine Hyaline Casts Many /HPF Urine Mucus Marked /LPF White Blood Count 5.7 x10^3/uL (4.0-11.0) Red Blood Count 3.91 x10^6/uL (3.50-5.40) Hemoglobin 7.5 g/dL (12.0-15.5) Hematocrit 25.5 % (36.0-47.0) Mean Corpuscular Volume 65 fL (79-100) Mean Corpuscular Hemoglobin 19 pg (25-35) Mean Corpuscular Hemoglobin Concent 30 g/dL (31-37) Red Cell Distribution Width 19.8 % (11.5-14.5) Platelet Count 247 x10^3/uL (140-400) Neutrophils (%) (Auto) 54 % (31-73) Lymphocytes (%) (Auto) 36 % (24-48) Monocytes (%) (Auto) 8 % (0-9) Eosinophils (%) (Auto) 2 % (0-3) Basophils (%) (Auto) 1 % (0-3) Neutrophils # (Auto) 3.1 x10^3/uL (1.8-7.7) Lymphocytes # (Auto) 2.0 x10^3/uL (1.0-4.8) Monocytes # (Auto) 0.4 x10^3/uL (0.0-1.1) Eosinophils # (Auto) 0.1 x10^3/uL (0.0-0.7) Basophils # (Auto) 0.1 x10^3/uL (0.0-0.2) Platelet Estimate Adequate (ADEQUATE) Polychromasia Slight Hypochromasia Marked Anisocytosis Slight Microcytosis Marked Macrocytosis Slight Prothrombin Time 12.5 SEC (11.7-14.0) Prothromb Time International Ratio 1.0 (0.8-1.1) Activated Partial Thromboplast Time 25 SEC (24-38) Sodium Level 142 mmol/L (136-145) Potassium Level 3.4 mmol/L (3.5-5.1) Chloride Level 101 mmol/L (98-107) Carbon Dioxide Level 25 mmol/L (21-32) Anion Gap 16 (6-14) Blood Urea Nitrogen 7 mg/dL (7-20) Creatinine 0.7 mg/dL (0.6-1.0) Estimated GFR (Cockcroft-Gault) 88.2 BUN/Creatinine Ratio 10 (6-20) Glucose Level 94 mg/dL (70-99) Calcium Level 9.3 mg/dL (8.5-10.1) Ferritin 30 ng/mL (8-252) Total Bilirubin 0.4 mg/dL (0.2-1.0) Aspartate Amino Transf (AST/SGOT) 92 U/L (15-37) Alanine Aminotransferase (ALT/SGPT) 83 U/L (14-59) Alkaline Phosphatase 140 U/L (46-116) C-Reactive Protein, Quantitative 3.6 mg/L (0-3.3) Total Protein 7.2 g/dL (6.4-8.2) Albumin 3.4 g/dL (3.4-5.0) Albumin/Globulin Ratio 0.9 (1.0-1.7) Laboratory Tests Test 05/27/20 12:20 05/27/20 12:45 Urine Collection Type Unknown Urine Color Susana Urine Clarity Cloudy Urine pH 5.5 (<5.0-8.0) Urine Specific [place] 1.020 (1.000-1.030) Urine Protein 30 mg/dL (NEG-TRACE) Urine Glucose (UA) Negative mg/dL (NEG) Urine Ketones (Stick) 15 mg/dL (NEG) Urine Blood Trace (NEG) Urine Nitrite Positive (NEG) Urine Bilirubin Negative (NEG) Urine Urobilinogen Dipstick 1.0 mg/dL (0.2 mg/dL) Urine Leukocyte Esterase Large (NEG) Urine RBC 0 /HPF (0-2) Urine WBC Tntc /HPF (0-4) Urine Squamous Epithelial Cells Many /LPF Urine Bacteria Many /HPF (0-FEW) Urine Hyaline Casts Many /HPF Urine Mucus Marked /LPF White Blood Count 5.7 x10^3/uL (4.0-11.0) Red Blood Count 3.91 x10^6/uL (3.50-5.40) Hemoglobin 7.5 g/dL (12.0-15.5) Hematocrit 25.5 % (36.0-47.0) Mean Corpuscular Volume 65 fL (79-100) Mean Corpuscular Hemoglobin 19 pg (25-35) Mean Corpuscular Hemoglobin Concent 30 g/dL (31-37) Red Cell Distribution Width 19.8 % (11.5-14.5) Platelet Count 247 x10^3/uL (140-400) Neutrophils (%) (Auto) 54 % (31-73) Lymphocytes (%) (Auto) 36 % (24-48) Monocytes (%) (Auto) 8 % (0-9) Eosinophils (%) (Auto) 2 % (0-3) Basophils (%) (Auto) 1 % (0-3) Neutrophils # (Auto) 3.1 x10^3/uL (1.8-7.7) Lymphocytes # (Auto) 2.0 x10^3/uL (1.0-4.8) Monocytes # (Auto) 0.4 x10^3/uL (0.0-1.1) Eosinophils # (Auto) 0.1 x10^3/uL (0.0-0.7) Basophils # (Auto) 0.1 x10^3/uL (0.0-0.2) Platelet Estimate Adequate (ADEQUATE) Polychromasia Slight Hypochromasia Marked Anisocytosis Slight Microcytosis Marked Macrocytosis Slight Prothrombin Time 12.5 SEC (11.7-14.0) Prothromb Time International Ratio 1.0 (0.8-1.1) Activated Partial Thromboplast Time 25 SEC (24-38) Sodium Level 142 mmol/L (136-145) Potassium Level 3.4 mmol/L (3.5-5.1) Chloride Level 101 mmol/L (98-107) Carbon Dioxide Level 25 mmol/L (21-32) Anion Gap 16 (6-14) Blood Urea Nitrogen 7 mg/dL (7-20) Creatinine 0.7 mg/dL (0.6-1.0) Estimated GFR (Cockcroft-Gault) 88.2 BUN/Creatinine Ratio 10 (6-20) Glucose Level 94 mg/dL (70-99) Calcium Level 9.3 mg/dL (8.5-10.1) Ferritin 30 ng/mL (8-252) Total Bilirubin 0.4 mg/dL (0.2-1.0) Aspartate Amino Transf (AST/SGOT) 92 U/L (15-37) Alanine Aminotransferase (ALT/SGPT) 83 U/L (14-59) Alkaline Phosphatase 140 U/L (46-116) C-Reactive Protein, Quantitative 3.6 mg/L (0-3.3) Total Protein 7.2 g/dL (6.4-8.2) Albumin 3.4 g/dL (3.4-5.0) Albumin/Globulin Ratio 0.9 (1.0-1.7) Images: Images IMPRESSION: 1. Hyperdense collection within the anterior left thigh subcutaneous tissues, consistent with hematoma. There is no evidence of active contrast extravasation or pseudoaneurysm. 2. No evidence of hemodynamically significant stenosis or aneurysm. There is minimal atherosclerotic plaquing within the abdominal aorta and bilateral common iliac arteries. 3. Fatty infiltration of the liver. 4. Status post cholecystectomy and hysterectomy with evidence of prior gastric bypass. CXR Impression: 1. No acute cardiopulmonary process. Assessment/Plan Assessment/Plan Acute stable left anterior thigh hematoma with no evidence of extravasation or pseudoaneurysm secondary to fall Evidence of hepatic steatosis History of falls Acute UTI Morbid obesity Hypokalemia Anemia due to iron deficiency Admit to medicine for further management Neurovascular checks Surgery consult Continue IV empiric antibiotics Pending urine cultures Vitamin D levels due to history of falls Orthostatic vital signs PT OT IV electrolyte replacement as needed Lovenox for DVT prophylaxis Protonix GI prophylaxis ADA diet Full code Discussed with RN and SW Disposition inpatient evaluation as above Surrogate decision maker is the Justifications for Admission Other Justification Weakness and UTI FELIPE LOPEZ MD May 27, 2020 20:00
[2020-05-27] MEDS: ENOXAPARIN 40 MG/0.4 ML SYRINGE. SQ SCH (22:29)
[2020-05-28] VITALS (11 sets, daily range): BP systolic 114–157; BP diastolic 60–87
[2020-05-28] MEDS: MORPHINE SULFATE 4 MG/ML VIAL. IV PRN (00:04)
[2020-05-28] MEDS: ONDANSETRON PF 4 MG/2 ML VIAL. IVP PRN ×2 (00:04→17:36)
--- NOTE | 2020-05-28 01:00 | NUR ---
Pt arrived to unit. VS stable. Pt has large hematoma on L thigh. Outlined the area of bruising and swelling. Pt c/o some pain at this time but states that it is ok for now. Call light within reach. Will monitor.
[2020-05-28] MEDS ORDERED: diphenhydrAMINE 50 MG/ML VIAL IVP PRN (01:15)
[2020-05-28] MEDS ORDERED: HALOPERIDOL LACTATE 5 MG/ML VIAL. IVP PRN (01:15)
[2020-05-28] MEDS ORDERED: cloNIDine HCL 0.1 MG TABLET PO PRN (01:15)
[2020-05-28] MEDS ORDERED: IBUP-1060 PO (02:01)
[2020-05-28] MEDS ORDERED: METO10TA81 PO (02:01)
[2020-05-28 04:31] LABS: INFLUENZA A PATIENT NEGATIVE (NEGATIVE); INFLUENZA B PATIENT NEGATIVE (NEGATIVE)
[2020-05-28 05:10] LABS: BASO % 1 % (0-3); EOS # 0.1 x10^3/uL (0.0-0.7); EOS % 1 % (0-3); HEMATOCRIT 21.3 % (36.0-47.0); LYMPH # 1.7 x10^3/uL (1.0-4.8); LYMPH % 35 % (24-48); MEAN CORPUSCULAR HEMOGLOBIN 20 pg (25-35); MEAN CORPUSCULAR HGB CONC 30 g/dL (31-37); MEAN CORPUSCULAR VOLUME 66 fL (79-100); MONO # 0.4 x10^3/uL (0.0-1.1); MONO % 8 % (0-9); NEUT # 2.7 x10^3/uL (1.8-7.7); NEUT % 54 % (31-73); PLATELET COUNT 190 x10^3/uL (140-400); RED BLOOD COUNT 3.23 x10^6/uL (3.50-5.40); RED CELL DISTRIBUTION WIDTH 19.9 % (11.5-14.5); WHITE BLOOD COUNT 4.9 x10^3/uL (4.0-11.0)
[2020-05-28 05:12] LABS: HEMOGLOBIN 6.4 g/dL (12.0-15.5)
[2020-05-28 05:35] LABS: CALCIUM 8.3 mg/dL (8.5-10.1); CREATININE 0.5 mg/dL (0.6-1.0); GFR 130.1; MAGNESIUM 1.5 mg/dL (1.8-2.4); PHOSPHORUS 3.6 mg/dL (2.6-4.7)
[2020-05-28 05:41] LABS: POTASSIUM 2.8 mmol/L (3.5-5.1)
[2020-05-28] MEDS ORDERED: POTASSIUM BICARB 10 MEQ EFFERVESCENT TABLET. PO SCH (06:00)
[2020-05-28] MEDS ORDERED: POTASSIUM BICARB 10 MEQ EFFERVESCENT TABLET. FT ONE (06:00)
[2020-05-28] MEDS ORDERED: ELECTROLYTE (NON-ICU) PROTOCOL. MC PRN (06:15)
[2020-05-28] MEDS ORDERED: POTASSIUM CHLORIDE 20 MEQ TABLET.ER. PO ONE ×2 (06:30→10:30)
[2020-05-28] MEDS ORDERED: ZOLP5TAB PO (07:31)
[2020-05-28] MEDS ORDERED: MAGNESIUM OXIDE 400 MG TABLET PO SCH (09:00)
[2020-05-28] MEDS ORDERED: MULTIVIT INFUSN,ADULT 4,VIT K 10 ML, THIAMINE INJ 100 MG, FOLIC ACID INJ 1 MG in IV NOR... IV SCH (09:00)
[2020-05-28] MEDS ORDERED: THIAMINE INJ 100 MG in IV DEXTROSE 5% 50 ML IV SCH (09:00)
[2020-05-28] MEDS ORDERED: POTASSIUM & SODIUM PHOSPHATES PACKET. PO SCH (09:00)
[2020-05-28] MEDS ORDERED: FLU VACC QS 2020-21(6MOS+)/PF 0.5 ML SYRINGE. VAX IM ONE (09:00)
--- NOTE | 2020-05-28 09:07 | PDOC2 ---
CONSULT Date of Consult Date of Consult DATE: 05/28/20 TIME: 09:04 Reason for Consult Reason for Consult: Trauma fall with left groin hematoma Referring Physician Referring Physician: Colin Identification/Chief Complaint Chief Complaint General malaise cough fever Source Source: Chart review, Patient History of Present Illness Reason for Visit: 49-year-old female whose had about a week history of general malaise cough persistent and occasional fevers her had recently been tested positive for Covid she had been in quarantine currently her serology for Covid is been negative she did fall yesterday on a lawn ornament onto the left groin developed a large bruising and swelling. This morning she is resting comfortably she states is feeling better in the left groin minimal pain Past Medical History Cardiovascular: HTN Pulmonary: No pertinent hx Renal/: No pertinent hx Past Surgical History Past Surgical History: Hysterectomy Family History Family History: High Cholestrol, Hypertension Social History Social History: Parent ALCOHOL: occassional Drugs: None Current Problem List Problem List Problems Medical Problems: (1) Person under investigation for COVID-19 Status: Acute (2) Traumatic hematoma of groin Status: Acute (3) UTI (urinary tract infection) Status: Acute Current Medications Current Medications Current Medications Iohexol (Omnipaque 350 Mg/ml) 95 ml 1X ONCE IV Last administered on 05/27/20at 14:50; Start 05/27/20 at 13:30; Stop 05/27/20 at 13:32; Status DC Info (CONTRAST GIVEN -- Rx MONITORING) 1 each PRN DAILY PRN MC SEE COMMENTS; Start 05/27/20 at 13:45; Stop 05/29/20 at 13:44 Sodium Chloride 1,000 ml @ 1,000 mls/hr 1X ONCE IV Last administered on 05/27/20at 14:06; Start 05/27/20 at 14:00; Stop 05/27/20 at 14:59; Status DC Ondansetron HCl (Zofran) 4 mg 1X ONCE IV Last administered on 05/27/20at 14:06; Start 05/27/20 at 14:00; Stop 05/27/20 at 14:01; Status DC Fentanyl Citrate (Fentanyl 2ml Vial) 50 mcg 1X ONCE IV Last administered on 05/27/20at 14:07; Start 05/27/20 at 14:00; Stop 05/27/20 at 14:01; Status DC Ceftriaxone Sodium (Rocephin) 1 gm 1X ONCE IVP Last administered on 05/27/20at 15:47; Start 05/27/20 at 15:00; Stop 05/27/20 at 15:01; Status DC Morphine Sulfate (Morphine Sulfate) 4 mg 1X ONCE IV Last administered on 05/27/20at 15:48; Start 05/27/20 at 15:30; Stop 05/27/20 at 15:31; Status DC Ondansetron HCl (Zofran) 4 mg PRN Q8HRS PRN IV NAUSEA/VOMITING; Start 05/27/20 at 17:30; Stop 05/27/20 at 19:44; Status DC Morphine Sulfate (Morphine Sulfate) 2 mg PRN Q2HR PRN IV PAIN; Start 05/27/20 at 17:30; Stop 05/27/20 at 19:43; Status DC Sennosides (Senna) 17.2 mg PRN BID PRN PO CONSTIPATION; Start 05/27/20 at 19:45 Docusate Sodium (Colace) 100 mg PRN DAILY PRN PO HARD STOOLS; Start 05/27/20 at 19:45 Ondansetron HCl (Zofran) 4 mg PRN Q6HRS PRN IVP NAUSEA/VOMITING Last administered on 05/28/20at 00:04; Start 05/27/20 at 19:45 Dextrose (Dextrose 50%-Water Syringe) 12.5 gm PRN Q15MIN PRN IV SEE COMMENTS; Start 05/27/20 at 19:45 Acetaminophen (Tylenol) 650 mg PRN Q4HRS PRN PO TEMP OVER 100.4F OR MILD PAIN; Start 05/27/20 at 19:45 Enoxaparin Sodium (Lovenox 40mg Syringe) 40 mg Q24H SQ Last administered on 05/27/20at 22:29; Start 05/27/20 at 21:00 Pantoprazole Sodium (Protonix) 40 mg DAILYAC PO ; Start 05/28/20 at 07:30 Ascorbic Acid (Vitamin C) 500 mg DAILY PO ; Start 05/28/20 at 09:00 Thiamine HCl 100 mg/Dextrose 51 ml @ 102 mls/hr DAILY IV ; Start 05/28/20 at 09:00; Stop 05/28/20 at 01:27; Status DC Ceftriaxone Sodium (Rocephin) 1 gm Q24H IVP ; Start 05/28/20 at 15:00 Morphine Sulfate (Morphine Sulfate) 1 mg PRN Q1HR PRN IV MILD PAIN, MODERATE PAIN; Start 05/27/20 at 19:45 Morphine Sulfate (Morphine Sulfate) 2 mg PRN Q2HR PRN IV SEVERE PAIN 7-10 Last administered on 05/28/20at 00:04; Start 05/27/20 at 04:00; Stop 05/28/20 at 03:59; Status DC Vitamin D (Vitamin D3) 5,000 unit DAILY PO ; Start 05/28/20 at 09:00 Cyclobenzaprine HCl (Flexeril) 10 mg PRN TID PRN PO MUSCLE SPASMS; Start 05/27/20 at 20:00 Multivitamins 10 ml/Thiamine HCl 100 mg/Folic Acid 1 mg/Sodium Chloride 1,011.2 ml @ 100 mls/ hr DAILY IV ; Start 05/28/20 at 09:00; Stop 05/28/20 at 19:07 Multivitamins (Thera M Plus) 1 tab DAILY PO ; Start 05/29/20 at 09:00 Lorazepam (Ativan) 4 mg PRN Q1HR PRN PO For CIWA 8-14 Last administered on 05/28/20at 02:48; Start 05/28/20 at 01:15 Lorazepam (Ativan) 8 mg PRN Q1HR PRN PO For CIWA 15 or greater; Start 05/28/20 at 01:15 Lorazepam (Ativan Inj) 2 mg PRN Q1HR PRN IV For CIWA 8-14; Start 05/28/20 at 01:15 Lorazepam (Ativan Inj) 4 mg PRN Q1HR PRN IV For CIWA 15 or greater; Start 05/28/20 at 01:15 Haloperidol Lactate (Haldol Inj) 5 mg PRN Q4HRS PRN IVP Hallucinatns,Conf usn,Delirium; Start 05/28/20 at 01:15 Diphenhydramine HCl (Benadryl) 25 mg PRN Q15MIN PRN IVP EPS symptoms 2'Haldol admin; Start 05/28/20 at 01:15 Clonidine HCl (Catapres) 0.1 mg PRN Q1HR PRN PO SBP > 180 or DBP > 100, MRX3; Start 05/28/20 at 01:15 Folic Acid (Folic Acid) 1 mg DAILY PO ; Start 05/29/20 at 09:00 Thiamine Mononitrate (Vitamin B-1) 100 mg DAILY PO ; Start 05/29/20 at 09:00 Influenza Virus Vaccine Quadrival (Fluzone Quad Syringe) 0.5 ml ONCE ONCE VAX IM ; Start 05/28/20 at 09:00; Stop 05/28/20 at 09:01; Status DC Potassium Chloride (Klor-Con) 40 meq 1X ONCE PO Last administered on 05/28/20at 06:38; Start 05/28/20 at 06:30; Stop 05/28/20 at 06:31; Status DC Potassium Bicarbonate (Potassium Effervescent Tablet) 40 meq 1X ONCE FT ; Start 05/28/20 at 06:00; Stop 05/28/20 at 06:01; Status UNV Magnesium Oxide (Magnesium Oxide) 400 mg BID PO ; Start 05/28/20 at 09:00; Stop 05/29/20 at 21:01; Status UNV Potassium Phos/ Sodium Phos (Phos-Nak) 1 pkt BID PO ; Start 05/28/20 at 09:00; Stop 05/28/20 at 21:01; Status UNV Potassium Bicarbonate (Potassium Effervescent Tablet) 40 meq Q4H PO ; Start 05/28/20 at 06:00; Stop 05/28/20 at 10:01; Status UNV Info (Non-Icu Electrolyte Protocol) 1 ea CONT PRN PRN MC PER PROTOCOL; Start 05/28/20 at 06:15 Potassium Chloride (Klor-Con) 40 meq 1X ONCE PO ; Start 05/28/20 at 10:30; Stop 05/28/20 at 10:31 Active Scripts Active Poly-Iron (Iron Polysaccharides Complex) 150 Mg Capsule 150 Mg PO DAILY 30 Days Cyclobenzaprine Hcl 10 Mg Tablet 1 Tab PO PRN TID PRN 10 Days Reported Ambien (Zolpidem Tartrate) 5 Mg Tablet 5 Mg PO PRN QHS PRN Ibuprofen 800 Mg Tablet 800 Mg PO PRN Q6HRS PRN Reglan (Metoclopramide Hcl) 10 Mg Tablet 1 Tab PO PRN TID PRN 30 Days before food and bedtime Vitamin B Complex 1 Each Capsule 1 Each PO DAILY Vitamin D (Cholecalciferol (Vitamin D3)) 10,000 Unit Capsule 10,000 Unit PO 3X/WEEK [facility] Calcium 600 + Vit D 200 Tablet (Calcium Carbonate/Vitamin D3) 1 Each Tablet 1 Each PO TID Aldactone (Spironolactone) 25 Mg Tablet 1 Tab PO DAILY Amlodipine Besylate 10 Mg Tablet 10 Mg PO DAILY Lasix (Furosemide) 40 Mg Tablet 40 Mg PO DAILY Allergies Allergies: Coded Allergies: bee venom protein (honey bee) (Unverified Allergy, Intermediate, 07/22/18) lisinopril (Verified Allergy, Intermediate, 07/22/18) meperidine (Verified Allergy, Intermediate, 07/22/18) ROS General: YES: Malaise Respiratory: YES: Cough Genitourinary: YES Dysuria, YES Frequency Physical Exam General: Alert, Oriented X3, Cooperative, mild distress HEENT: Atraumatic Lungs: Clear to auscultation, Normal air movement Heart: Regular rate, No murmurs Abdomen: Normal bowel sounds, Soft, No tenderness Extremities: No edema, Other (Left groin large ecchymoses mildly tender to palpation) Skin: No significant lesion Neuro: Normal speech Psych/Mental Status: Mental status NL Vitals VITALS Vital Signs Date Time Temp Pulse Resp B/P (MAP) Pulse Ox O2 Delivery O2 Flow Rate FiO2 05/28/20 03:15 97.9 111 21 125/67 (86) 92 Room Air 97.9 05/28/20 01:30 2.0 Labs Labs Laboratory Tests Test 05/27/20 12:20 05/27/20 12:45 05/27/20 22:36 05/28/20 03:45 Urine Collection Type Unknown Urine Color Susana Urine Clarity Cloudy Urine pH 5.5 (<5.0-8.0) Urine Specific [place] 1.020 (1.000-1.030) Urine Protein 30 mg/dL (NEG-TRACE) Urine Glucose (UA) Negative mg/dL (NEG) Urine Ketones (Stick) 15 mg/dL (NEG) Urine Blood Trace (NEG) Urine Nitrite Positive (NEG) Urine Bilirubin Negative (NEG) Urine Urobilinogen Dipstick 1.0 mg/dL (0.2 mg/dL) Urine Leukocyte Esterase Large (NEG) Urine RBC 0 /HPF (0-2) Urine WBC Tntc /HPF (0-4) Urine Squamous Epithelial Cells Many /LPF Urine Bacteria Many /HPF (0-FEW) Urine Hyaline Casts Many /HPF Urine Mucus Marked /LPF White Blood Count 5.7 x10^3/uL (4.0-11.0) Red Blood Count 3.91 x10^6/uL (3.50-5.40) Hemoglobin 7.5 g/dL (12.0-15.5) Hematocrit 25.5 % (36.0-47.0) Mean Corpuscular Volume 65 fL (79-100) Mean Corpuscular Hemoglobin 19 pg (25-35) Mean Corpuscular Hemoglobin Concent 30 g/dL (31-37) Red Cell Distribution Width 19.8 % (11.5-14.5) Platelet Count 247 x10^3/uL (140-400) Neutrophils (%) (Auto) 54 % (31-73) Lymphocytes (%) (Auto) 36 % (24-48) Monocytes (%) (Auto) 8 % (0-9) Eosinophils (%) (Auto) 2 % (0-3) Basophils (%) (Auto) 1 % (0-3) Neutrophils # (Auto) 3.1 x10^3/uL (1.8-7.7) Lymphocytes # (Auto) 2.0 x10^3/uL (1.0-4.8) Monocytes # (Auto) 0.4 x10^3/uL (0.0-1.1) Eosinophils # (Auto) 0.1 x10^3/uL (0.0-0.7) Basophils # (Auto) 0.1 x10^3/uL (0.0-0.2) Platelet Estimate Adequate (ADEQUATE) Polychromasia Slight Hypochromasia Marked Anisocytosis Slight Microcytosis Marked Macrocytosis Slight Prothrombin Time 12.5 SEC (11.7-14.0) Prothromb Time International Ratio 1.0 (0.8-1.1) Activated Partial Thromboplast Time 25 SEC (24-38) Sodium Level 142 mmol/L (136-145) Potassium Level 3.4 mmol/L (3.5-5.1) Chloride Level 101 mmol/L (98-107) Carbon Dioxide Level 25 mmol/L (21-32) Anion Gap 16 (6-14) Blood Urea Nitrogen 7 mg/dL (7-20) Creatinine 0.7 mg/dL (0.6-1.0) Estimated GFR (Cockcroft-Gault) 88.2 BUN/Creatinine Ratio 10 (6-20) Glucose Level 94 mg/dL (70-99) Calcium Level 9.3 mg/dL (8.5-10.1) Ferritin 30 ng/mL (8-252) Total Bilirubin 0.4 mg/dL (0.2-1.0) Aspartate Amino Transf (AST/SGOT) 92 U/L (15-37) Alanine Aminotransferase (ALT/SGPT) 83 U/L (14-59) Alkaline Phosphatase 140 U/L (46-116) C-Reactive Protein, Quantitative 3.6 mg/L (0-3.3) Total Protein 7.2 g/dL (6.4-8.2) Albumin 3.4 g/dL (3.4-5.0) Albumin/Globulin Ratio 0.9 (1.0-1.7) SARS-CoV-2 Antigen (Rapid) Negative (NEGATIVE) Influenza Type A Antigen Negative (NEGATIVE) Influenza Type B Antigen Negative (NEGATIVE) Test 05/28/20 04:00 White Blood Count 4.9 x10^3/uL (4.0-11.0) Red Blood Count 3.23 x10^6/uL (3.50-5.40) Hemoglobin 6.4 g/dL (12.0-15.5) Hematocrit 21.3 % (36.0-47.0) Mean Corpuscular Volume 66 fL (79-100) Mean Corpuscular Hemoglobin 20 pg (25-35) Mean Corpuscular Hemoglobin Concent 30 g/dL (31-37) Red Cell Distribution Width 19.9 % (11.5-14.5) Platelet Count 190 x10^3/uL (140-400) Neutrophils (%) (Auto) 54 % (31-73) Lymphocytes (%) (Auto) 35 % (24-48) Monocytes (%) (Auto) 8 % (0-9) Eosinophils (%) (Auto) 1 % (0-3) Basophils (%) (Auto) 1 % (0-3) Neutrophils # (Auto) 2.7 x10^3/uL (1.8-7.7) Lymphocytes # (Auto) 1.7 x10^3/uL (1.0-4.8) Monocytes # (Auto) 0.4 x10^3/uL (0.0-1.1) Eosinophils # (Auto) 0.1 x10^3/uL (0.0-0.7) Basophils # (Auto) 0.0 x10^3/uL (0.0-0.2) Sodium Level 139 mmol/L (136-145) Potassium Level 2.8 mmol/L (3.5-5.1) Chloride Level 100 mmol/L (98-107) Carbon Dioxide Level 26 mmol/L (21-32) Anion Gap 13 (6-14) Blood Urea Nitrogen 7 mg/dL (7-20) Creatinine 0.5 mg/dL (0.6-1.0) Estimated GFR (Cockcroft-Gault) 130.1 Glucose Level 80 mg/dL (70-99) Calcium Level 8.3 mg/dL (8.5-10.1) Phosphorus Level 3.6 mg/dL (2.6-4.7) Magnesium Level 1.5 mg/dL (1.8-2.4) Laboratory Tests Test 05/27/20 12:20 05/27/20 12:45 05/27/20 22:36 05/28/20 03:45 Urine Collection Type Unknown Urine Color Susana Urine Clarity Cloudy Urine pH 5.5 (<5.0-8.0) Urine Specific [place] 1.020 (1.000-1.030) Urine Protein 30 mg/dL (NEG-TRACE) Urine Glucose (UA) Negative mg/dL (NEG) Urine Ketones (Stick) 15 mg/dL (NEG) Urine Blood Trace (NEG) Urine Nitrite Positive (NEG) Urine Bilirubin Negative (NEG) Urine Urobilinogen Dipstick 1.0 mg/dL (0.2 mg/dL) Urine Leukocyte Esterase Large (NEG) Urine RBC 0 /HPF (0-2) Urine WBC Tntc /HPF (0-4) Urine Squamous Epithelial Cells Many /LPF Urine Bacteria Many /HPF (0-FEW) Urine Hyaline Casts Many /HPF Urine Mucus Marked /LPF White Blood Count 5.7 x10^3/uL (4.0-11.0) Red Blood Count 3.91 x10^6/uL (3.50-5.40) Hemoglobin 7.5 g/dL (12.0-15.5) Hematocrit 25.5 % (36.0-47.0) Mean Corpuscular Volume 65 fL (79-100) Mean Corpuscular Hemoglobin 19 pg (25-35) Mean Corpuscular Hemoglobin Concent 30 g/dL (31-37) Red Cell Distribution Width 19.8 % (11.5-14.5) Platelet Count 247 x10^3/uL (140-400) Neutrophils (%) (Auto) 54 % (31-73) Lymphocytes (%) (Auto) 36 % (24-48) Monocytes (%) (Auto) 8 % (0-9) Eosinophils (%) (Auto) 2 % (0-3) Basophils (%) (Auto) 1 % (0-3) Neutrophils # (Auto) 3.1 x10^3/uL (1.8-7.7) Lymphocytes # (Auto) 2.0 x10^3/uL (1.0-4.8) Monocytes # (Auto) 0.4 x10^3/uL (0.0-1.1) Eosinophils # (Auto) 0.1 x10^3/uL (0.0-0.7) Basophils # (Auto) 0.1 x10^3/uL (0.0-0.2) Platelet Estimate Adequate (ADEQUATE) Polychromasia Slight Hypochromasia Marked Anisocytosis Slight Microcytosis Marked Macrocytosis Slight Prothrombin Time 12.5 SEC (11.7-14.0) Prothromb Time International Ratio 1.0 (0.8-1.1) Activated Partial Thromboplast Time 25 SEC (24-38) Sodium Level 142 mmol/L (136-145) Potassium Level 3.4 mmol/L (3.5-5.1) Chloride Level 101 mmol/L (98-107) Carbon Dioxide Level 25 mmol/L (21-32) Anion Gap 16 (6-14) Blood Urea Nitrogen 7 mg/dL (7-20) Creatinine 0.7 mg/dL (0.6-1.0) Estimated GFR (Cockcroft-Gault) 88.2 BUN/Creatinine Ratio 10 (6-20) Glucose Level 94 mg/dL (70-99) Calcium Level 9.3 mg/dL (8.5-10.1) Ferritin 30 ng/mL (8-252) Total Bilirubin 0.4 mg/dL (0.2-1.0) Aspartate Amino Transf (AST/SGOT) 92 U/L (15-37) Alanine Aminotransferase (ALT/SGPT) 83 U/L (14-59) Alkaline Phosphatase 140 U/L (46-116) C-Reactive Protein, Quantitative 3.6 mg/L (0-3.3) Total Protein 7.2 g/dL (6.4-8.2) Albumin 3.4 g/dL (3.4-5.0) Albumin/Globulin Ratio 0.9 (1.0-1.7) SARS-CoV-2 Antigen (Rapid) Negative (NEGATIVE) Influenza Type A Antigen Negative (NEGATIVE) Influenza Type B Antigen Negative (NEGATIVE) Test 05/28/20 04:00 White Blood Count 4.9 x10^3/uL (4.0-11.0) Red Blood Count 3.23 x10^6/uL (3.50-5.40) Hemoglobin 6.4 g/dL (12.0-15.5) Hematocrit 21.3 % (36.0-47.0) Mean Corpuscular Volume 66 fL (79-100) Mean Corpuscular Hemoglobin 20 pg (25-35) Mean Corpuscular Hemoglobin Concent 30 g/dL (31-37) Red Cell Distribution Width 19.9 % (11.5-14.5) Platelet Count 190 x10^3/uL (140-400) Neutrophils (%) (Auto) 54 % (31-73) Lymphocytes (%) (Auto) 35 % (24-48) Monocytes (%) (Auto) 8 % (0-9) Eosinophils (%) (Auto) 1 % (0-3) Basophils (%) (Auto) 1 % (0-3) Neutrophils # (Auto) 2.7 x10^3/uL (1.8-7.7) Lymphocytes # (Auto) 1.7 x10^3/uL (1.0-4.8) Monocytes # (Auto) 0.4 x10^3/uL (0.0-1.1) Eosinophils # (Auto) 0.1 x10^3/uL (0.0-0.7) Basophils # (Auto) 0.0 x10^3/uL (0.0-0.2) Sodium Level 139 mmol/L (136-145) Potassium Level 2.8 mmol/L (3.5-5.1) Chloride Level 100 mmol/L (98-107) Carbon Dioxide Level 26 mmol/L (21-32) Anion Gap 13 (6-14) Blood Urea Nitrogen 7 mg/dL (7-20) Creatinine 0.5 mg/dL (0.6-1.0) Estimated GFR (Cockcroft-Gault) 130.1 Glucose Level 80 mg/dL (70-99) Calcium Level 8.3 mg/dL (8.5-10.1) Phosphorus Level 3.6 mg/dL (2.6-4.7) Magnesium Level 1.5 mg/dL (1.8-2.4) Images Images CT scan of the pelvis and groin shows large hematoma no evidence of extravasation of contrast and no evidence of ongoing bleeding Assessment/Plan Assessment/Plan Traumatic left groin hematoma stable, recommend conservative therapy with heat and movement to resolve hematoma Urinary tract infection per hospitalist No surgical plans at this time KRISTEN DELATORRE MD May 28, 2020 09:07
[2020-05-28] MEDS: CHOLECALCIFEROL (VITAMIN D3) 5,000 UNIT CAPSULE PO SCH (09:20)
[2020-05-28] MEDS: PANTOPRAZOLE 40 MG TABLET.DR. PO SCH (09:21)
[2020-05-28] MEDS: ASCORBIC ACID 500 MG TABLET PO SCH (09:21)
--- NOTE | 2020-05-28 11:39 | PDOC ---
[employer] PROGRESS NOTE Date of Service DOS: DATE: 05/28/20 TIME: 11:31 Chief Complaint Chief Complaint Fall Left thigh/groin hematoma unsteadiness when walking SOA hypokalemia Right shoulder fracture Chronic anemia Morbid obesity History of Present Illness History of Present Illness HPI: Patient is a 49-year-old female with past medical history of hypertension and a fall in the past that resulted in a right shoulder fracture who presents today after she fell from standing and landed on a plant pot on her front porch. P atient states that she landed on her left groin area and she noticed immediately a bruise and hematoma formed. 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 She does not have any loss of consciousness or dizziness prior to her fall. She does feel unsteady at times when she is moving and she tries to brace herself when she falls. Denies any vertigo. For the past 2 weeks she does endorse frequency with her urination. But denies any fevers, shortness of breath, dysuria, or hematuria. 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 Patient states that she was recently tested with a rapid Covid test and it was found to be negative today. 05/28 Pt seen and examined. NINI RN and respiratory therapy. Left thigh still has large hematoma. Pt states that she was drinking vodka when she did have the fall. Had tremors yesterday, Ativan helped. Still some SOA. Vitals/I&O Vitals/I&O: Vital Signs Date Time Temp Pulse Resp B/P (MAP) Pulse Ox O2 Delivery O2 Flow Rate FiO2 05/28/20 10:49 98.5 98.5 05/28/20 10:47 85 20 143/87 05/28/20 08:00 Nasal Cannula 2.0 05/28/20 07:00 94 I & O 05/27/20 05/27/20 05/28/20 15:00 23:00 07:00 Output Total 150 ml Balance -150 ml Physical Exam General: Alert, Oriented X3, Cooperative, mild distress Heart: Regular rate, Normal S1, Normal S2, No murmurs Lungs: Clear Abdomen: Normal bowel sounds, Soft, No tenderness Extremities: No edema, Other (Left groin large ecchymoses mildly tender to palpation) Skin: No significant lesion Labs Labs: Laboratory Tests Test 05/27/20 12:20 05/27/20 12:45 05/27/20 22:36 05/28/20 03:45 Urine Collection Type Unknown Urine Color Susana Urine Clarity Cloudy Urine pH 5.5 (<5.0-8.0) Urine Specific [place] 1.020 (1.000-1.030) Urine Protein 30 mg/dL (NEG-TRACE) Urine Glucose (UA) Negative mg/dL (NEG) Urine Ketones (Stick) 15 mg/dL (NEG) Urine Blood Trace (NEG) Urine Nitrite Positive (NEG) Urine Bilirubin Negative (NEG) Urine Urobilinogen Dipstick 1.0 mg/dL (0.2 mg/dL) Urine Leukocyte Esterase Large (NEG) Urine RBC 0 /HPF (0-2) Urine WBC Tntc /HPF (0-4) Urine Squamous Epithelial Cells Many /LPF Urine Bacteria Many /HPF (0-FEW) Urine Hyaline Casts Many /HPF Urine Mucus Marked /LPF White Blood Count 5.7 x10^3/uL (4.0-11.0) Red Blood Count 3.91 x10^6/uL (3.50-5.40) Hemoglobin 7.5 g/dL (12.0-15.5) Hematocrit 25.5 % (36.0-47.0) Mean Corpuscular Volume 65 fL (79-100) Mean Corpuscular Hemoglobin 19 pg (25-35) Mean Corpuscular Hemoglobin Concent 30 g/dL (31-37) Red Cell Distribution Width 19.8 % (11.5-14.5) Platelet Count 247 x10^3/uL (140-400) Neutrophils (%) (Auto) 54 % (31-73) Lymphocytes (%) (Auto) 36 % (24-48) Monocytes (%) (Auto) 8 % (0-9) Eosinophils (%) (Auto) 2 % (0-3) Basophils (%) (Auto) 1 % (0-3) Neutrophils # (Auto) 3.1 x10^3/uL (1.8-7.7) Lymphocytes # (Auto) 2.0 x10^3/uL (1.0-4.8) Monocytes # (Auto) 0.4 x10^3/uL (0.0-1.1) Eosinophils # (Auto) 0.1 x10^3/uL (0.0-0.7) Basophils # (Auto) 0.1 x10^3/uL (0.0-0.2) Platelet Estimate Adequate (ADEQUATE) Polychromasia Slight Hypochromasia Marked Anisocytosis Slight Microcytosis Marked Macrocytosis Slight Prothrombin Time 12.5 SEC (11.7-14.0) Prothromb Time International Ratio 1.0 (0.8-1.1) Activated Partial Thromboplast Time 25 SEC (24-38) Sodium Level 142 mmol/L (136-145) Potassium Level 3.4 mmol/L (3.5-5.1) Chloride Level 101 mmol/L (98-107) Carbon Dioxide Level 25 mmol/L (21-32) Anion Gap 16 (6-14) Blood Urea Nitrogen 7 mg/dL (7-20) Creatinine 0.7 mg/dL (0.6-1.0) Estimated GFR (Cockcroft-Gault) 88.2 BUN/Creatinine Ratio 10 (6-20) Glucose Level 94 mg/dL (70-99) Calcium Level 9.3 mg/dL (8.5-10.1) Ferritin 30 ng/mL (8-252) Total Bilirubin 0.4 mg/dL (0.2-1.0) Aspartate Amino Transf (AST/SGOT) 92 U/L (15-37) Alanine Aminotransferase (ALT/SGPT) 83 U/L (14-59) Alkaline Phosphatase 140 U/L (46-116) C-Reactive Protein, Quantitative 3.6 mg/L (0-3.3) Total Protein 7.2 g/dL (6.4-8.2) Albumin 3.4 g/dL (3.4-5.0) Albumin/Globulin Ratio 0.9 (1.0-1.7) SARS-CoV-2 Antigen (Rapid) Negative (NEGATIVE) Influenza Type A Antigen Negative (NEGATIVE) Influenza Type B Antigen Negative (NEGATIVE) Test 05/28/20 04:00 White Blood Count 4.9 x10^3/uL (4.0-11.0) Red Blood Count 3.23 x10^6/uL (3.50-5.40) Hemoglobin 6.4 g/dL (12.0-15.5) Hematocrit 21.3 % (36.0-47.0) Mean Corpuscular Volume 66 fL (79-100) Mean Corpuscular Hemoglobin 20 pg (25-35) Mean Corpuscular Hemoglobin Concent 30 g/dL (31-37) Red Cell Distribution Width 19.9 % (11.5-14.5) Platelet Count 190 x10^3/uL (140-400) Neutrophils (%) (Auto) 54 % (31-73) Lymphocytes (%) (Auto) 35 % (24-48) Monocytes (%) (Auto) 8 % (0-9) Eosinophils (%) (Auto) 1 % (0-3) Basophils (%) (Auto) 1 % (0-3) Neutrophils # (Auto) 2.7 x10^3/uL (1.8-7.7) Lymphocytes # (Auto) 1.7 x10^3/uL (1.0-4.8) Monocytes # (Auto) 0.4 x10^3/uL (0.0-1.1) Eosinophils # (Auto) 0.1 x10^3/uL (0.0-0.7) Basophils # (Auto) 0.0 x10^3/uL (0.0-0.2) Sodium Level 139 mmol/L (136-145) Potassium Level 2.8 mmol/L (3.5-5.1) Chloride Level 100 mmol/L (98-107) Carbon Dioxide Level 26 mmol/L (21-32) Anion Gap 13 (6-14) Blood Urea Nitrogen 7 mg/dL (7-20) Creatinine 0.5 mg/dL (0.6-1.0) Estimated GFR (Cockcroft-Gault) 130.1 Glucose Level 80 mg/dL (70-99) Calcium Level 8.3 mg/dL (8.5-10.1) Phosphorus Level 3.6 mg/dL (2.6-4.7) Magnesium Level 1.5 mg/dL (1.8-2.4) Review of Systems Review of Systems: No headaches. No abdominal pain. Assessment and Plan Assessmemt and Plan Problems Medical Problems: (1) Person under investigation for COVID-19 Status: Acute (2) Traumatic hematoma of groin Status: Acute (3) UTI (urinary tract infection) Status: Acute Fall Left thigh/groin hematoma unsteadiness when walking SOA hypokalemia Right shoulder fracture Chronic anemia Overweight Plan: Transfuse 1 Unit Packed Red Blood Cells Continue IV Rocephin Replace Potassium Cardiac Monitoring Trend Labs Trend Hemoglobin Bannana Bag and alcohol withdrawal precautions Encourage PO Intake PT/OT Home Meds Cardiac Diet Full Code Comment Review of Relevant I have reviewed the following items gladys (where applicable) has been applied. Medications: Current Medications Medications (Trade) Dose Ordered Sig/Ulysses Route PRN Reason Start Time Stop Time Status Last Admin Dose Admin Iohexol (Omnipaque 350 Mg/ml) 95 ml 1X ONCE IV 05/27/20 13:30 05/27/20 13:32 DC 05/27/20 14:50 Sodium Chloride 1,000 ml @ 1,000 mls/hr 1X ONCE IV 05/27/20 14:00 05/27/20 14:59 DC 05/27/20 14:06 Ondansetron HCl (Zofran) 4 mg 1X ONCE IV 05/27/20 14:00 05/27/20 14:01 DC 05/27/20 14:06 Fentanyl Citrate (Fentanyl 2ml Vial) 50 mcg 1X ONCE IV 05/27/20 14:00 05/27/20 14:01 DC 05/27/20 14:07 Ceftriaxone Sodium (Rocephin) 1 gm 1X ONCE IVP 05/27/20 15:00 05/27/20 15:01 DC 05/27/20 15:47 Morphine Sulfate (Morphine Sulfate) 4 mg 1X ONCE IV 05/27/20 15:30 05/27/20 15:31 DC 05/27/20 15:48 Ondansetron HCl (Zofran) 4 mg PRN Q6HRS PRN IVP NAUSEA/VOMITING 05/27/20 19:45 05/28/20 00:04 Enoxaparin Sodium (Lovenox 40mg Syringe) 40 mg Q24H SQ 05/27/20 21:00 05/27/20 22:29 Pantoprazole Sodium (Protonix) 40 mg DAILYAC PO 05/28/20 07:30 05/28/20 09:21 Ascorbic Acid (Vitamin C) 500 mg DAILY PO 05/28/20 09:00 05/28/20 09:21 Vitamin D (Vitamin D3) 5,000 unit DAILY PO 05/28/20 09:00 05/28/20 09:20 Multivitamins 10 ml/Thiamine HCl 100 mg/Folic Acid 1 mg/Sodium Chloride 1,011.2 ml @ 100 mls/ hr DAILY IV 05/28/20 09:00 05/28/20 19:07 05/28/20 09:29 Lorazepam (Ativan) 4 mg PRN Q1HR PRN PO For CIWA 8-14 05/28/20 01:15 05/28/20 10:57 Influenza Virus Vaccine Quadrival (Fluzone Quad Syringe) 0.5 ml ONCE ONCE VAX IM 05/28/20 09:00 05/28/20 09:01 DC 05/28/20 09:27 Potassium Chloride (Klor-Con) 40 meq 1X ONCE PO 05/28/20 06:30 05/28/20 06:31 DC 05/28/20 06:38 Potassium Chloride (Klor-Con) 40 meq 1X ONCE PO 05/28/20 10:30 05/28/20 10:31 DC 05/28/20 09:21 Justifications for Admission Other Justification Weakness and UTI DIETER LEE III DO May 28, 2020 11:39
[2020-05-28] MEDS: cefTRIAXone IV Push 1 GM VIAL. IVP SCH (15:42)
[2020-05-28] MEDS: ACETAMINOPHEN 325 MG TABLET. PO PRN ×2 (17:34→22:53)
[2020-05-28] MEDS: ENOXAPARIN 40 MG/0.4 ML SYRINGE. SQ SCH (22:58)
[2020-05-29 00:07] VITALS: BP 139/88
[2020-05-29 03:52] VITALS: BP 114/75
[2020-05-29 06:37] LABS: BASO % 1 % (0-3); EOS # 0.1 x10^3/uL (0.0-0.7); EOS % 4 % (0-3); HEMATOCRIT 25.5 % (36.0-47.0); HEMOGLOBIN 7.6 g/dL (12.0-15.5); LYMPH # 1.2 x10^3/uL (1.0-4.8); LYMPH % 34 % (24-48); MEAN CORPUSCULAR HEMOGLOBIN 21 pg (25-35); MEAN CORPUSCULAR HGB CONC 30 g/dL (31-37); MEAN CORPUSCULAR VOLUME 70 fL (79-100); MONO # 0.3 x10^3/uL (0.0-1.1); MONO % 9 % (0-9); NEUT # 1.8 x10^3/uL (1.8-7.7); NEUT % 52 % (31-73); PLATELET COUNT 181 x10^3/uL (140-400); RED BLOOD COUNT 3.65 x10^6/uL (3.50-5.40); RED CELL DISTRIBUTION WIDTH 22.9 % (11.5-14.5); WHITE BLOOD COUNT 3.4 x10^3/uL (4.0-11.0)
[2020-05-29 06:46] LABS: CALCIUM 8.4 mg/dL (8.5-10.1); CREATININE 0.5 mg/dL (0.6-1.0); GFR 130.1; POTASSIUM 3.2 mmol/L (3.5-5.1)
[2020-05-29 08:00] VITALS: BP 144/77
[2020-05-29] MEDS: CHOLECALCIFEROL (VITAMIN D3) 5,000 UNIT CAPSULE PO SCH (08:20)
[2020-05-29] MEDS: ASCORBIC ACID 500 MG TABLET PO SCH (08:20)
[2020-05-29] MEDS: PANTOPRAZOLE 40 MG TABLET.DR. PO SCH (08:20)
[2020-05-29] MEDS ORDERED: THIAMINE 100 MG TABLET. PO SCH (09:00)
[2020-05-29] MEDS ORDERED: MULTIVITAMIN with MINERAL TABLET. PO SCH (09:00)
[2020-05-29] MEDS ORDERED: FOLIC ACID 1 MG TABLET. PO SCH (09:00)
[2020-05-29 11:00] VITALS: BP 128/59
[2020-05-29] MEDS: cefTRIAXone IV Push 1 GM VIAL. IVP SCH (11:15)
[2020-05-29 12:10] VITALS: BP 155/75
--- NOTE | 2020-05-29 12:17 | PDOC ---
[employer] PROGRESS NOTE Date of Service DOS: DATE: 05/29/20 TIME: 12:15 Chief Complaint Chief Complaint Fall Left thigh/groin hematoma unsteadiness when walking SOA hypokalemia Right shoulder fracture Chronic anemia Morbid obesity History of Present Illness History of Present Illness HPI: Patient is a 49-year-old female with past medical history of hypertension and a fall in the past that resulted in a right shoulder fracture who presents today after she fell from standing and landed on a plant pot on her front porch. P atient states that she landed on her left groin area and she noticed immediately a bruise and hematoma formed. 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 She does not have any loss of consciousness or dizziness prior to her fall. She does feel unsteady at times when she is moving and she tries to brace herself when she falls. Denies any vertigo. For the past 2 weeks she does endorse frequency with her urination. But denies any fevers, shortness of breath, dysuria, or hematuria. 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 Patient states that she was recently tested with a rapid Covid test and it was found to be negative today. 05/28 Pt seen and examined. NINI RN and respiratory therapy. Left thigh still has large hematoma. Pt states that she was drinking vodka when she did have the fall. Had tremors yesterday, Ativan helped. Still some SOA. 05/29 Patient evaluated bedside. She is ambulating without pain. She notes some resolution in her hematoma. She is breathing comfortably on room air. Will complete Rocephin for UTI, and discharged home. Patient 30 minutes was spent on the management of patient's discharge. Vitals/I&O Vitals/I&O: Vital Signs Date Time Temp Pulse Resp B/P (MAP) Pulse Ox O2 Delivery O2 Flow Rate FiO2 05/29/20 12:10 100.2 110 18 155/75 (101) 96 100.2 05/29/20 08:00 Room Air 2.0 I & O 05/28/20 05/28/20 05/29/20 15:00 23:00 07:00 Intake Total 414 ml 350 ml 1270 ml Output Total 2000 ml Balance 414 ml 350 ml -730 ml Physical Exam General: Alert, Oriented X3, Cooperative, mild distress Heart: Regular rate, Normal S1, Normal S2, No murmurs Lungs: Clear Abdomen: Normal bowel sounds, Soft, No tenderness Extremities: No edema, Other (Left groin large ecchymoses mildly tender to palpation) Skin: No significant lesion Labs Labs: Laboratory Tests Test 05/29/20 06:05 White Blood Count 3.4 x10^3/uL (4.0-11.0) Red Blood Count 3.65 x10^6/uL (3.50-5.40) Hemoglobin 7.6 g/dL (12.0-15.5) Hematocrit 25.5 % (36.0-47.0) Mean Corpuscular Volume 70 fL (79-100) Mean Corpuscular Hemoglobin 21 pg (25-35) Mean Corpuscular Hemoglobin Concent 30 g/dL (31-37) Red Cell Distribution Width 22.9 % (11.5-14.5) Platelet Count 181 x10^3/uL (140-400) Neutrophils (%) (Auto) 52 % (31-73) Lymphocytes (%) (Auto) 34 % (24-48) Monocytes (%) (Auto) 9 % (0-9) Eosinophils (%) (Auto) 4 % (0-3) Basophils (%) (Auto) 1 % (0-3) Neutrophils # (Auto) 1.8 x10^3/uL (1.8-7.7) Lymphocytes # (Auto) 1.2 x10^3/uL (1.0-4.8) Monocytes # (Auto) 0.3 x10^3/uL (0.0-1.1) Eosinophils # (Auto) 0.1 x10^3/uL (0.0-0.7) Basophils # (Auto) 0.0 x10^3/uL (0.0-0.2) Sodium Level 139 mmol/L (136-145) Potassium Level 3.2 mmol/L (3.5-5.1) Chloride Level 106 mmol/L (98-107) Carbon Dioxide Level 24 mmol/L (21-32) Anion Gap 9 (6-14) Blood Urea Nitrogen 7 mg/dL (7-20) Creatinine 0.5 mg/dL (0.6-1.0) Estimated GFR (Cockcroft-Gault) 130.1 Glucose Level 101 mg/dL (70-99) Calcium Level 8.4 mg/dL (8.5-10.1) Review of Systems Review of Systems: Denies fever, denies chest pain, denies shortness of breath. Assessment and Plan Assessmemt and Plan Problems Medical Problems: (1) Person under investigation for COVID-19 Status: Acute (2) Traumatic hematoma of groin Status: Acute (3) UTI (urinary tract infection) Status: Acute Comment Review of Relevant I have reviewed the following items gladys (where applicable) has been applied. Medications: Current Medications Medications (Trade) Dose Ordered Sig/Ulysses Route PRN Reason Start Time Stop Time Status Last Admin Dose Admin Ceftriaxone Sodium (Rocephin) 1 gm Q24H IVP 05/28/20 15:00 05/29/20 11:15 Multivitamins (Thera M Plus) 1 tab DAILY PO 05/29/20 09:00 05/29/20 08:20 Folic Acid (Folic Acid) 1 mg DAILY PO 05/29/20 09:00 05/29/20 08:20 Thiamine Mononitrate (Vitamin B-1) 100 mg DAILY PO 05/29/20 09:00 05/29/20 08:20 Potassium Chloride (Klor-Con) 40 meq 1X ONCE PO 05/29/20 12:30 05/29/20 12:31 05/29/20 12:05 Justifications for Admission Other Justification Weakness and UTI SAVAGE ORELLANA MD May 29, 2020 12:17
--- NOTE | 2020-05-29 12:20 | PDOC3 ---
Discharge Summary Visit Information Date of Admission: May 27, 2020 Date of Discharge: May 29, 2020 Final Diagnosis Problems Medical Problems: (1) Person under investigation for COVID-19 Status: Acute (2) Traumatic hematoma of groin Status: Acute (3) UTI (urinary tract infection) Status: Acute Brief Hospital Course Allergies Allergies Coded Allergies Type Severity Reaction Last Updated Verified bee venom protein (honey bee) Allergy Intermediate 07/22/18 No lisinopril Allergy Intermediate 07/22/18 Yes meperidine Allergy Intermediate 07/22/18 Yes Vital Signs Vital Signs Date Time Temp Pulse Resp B/P (MAP) Pulse Ox O2 Delivery O2 Flow Rate FiO2 05/29/20 12:10 100.2 110 18 155/75 (101) 96 100.2 05/29/20 08:00 Room Air 2.0 Lab Results Laboratory Tests Test 05/27/20 12:20 05/27/20 12:45 05/27/20 22:36 05/28/20 03:45 Urine Collection Type Unknown Urine Color Susana Urine Clarity Cloudy Urine pH 5.5 (<5.0-8.0) Urine Specific [place] 1.020 (1.000-1.030) Urine Protein 30 mg/dL (NEG-TRACE) Urine Glucose (UA) Negative mg/dL (NEG) Urine Ketones (Stick) 15 mg/dL (NEG) Urine Blood Trace (NEG) Urine Nitrite Positive (NEG) Urine Bilirubin Negative (NEG) Urine Urobilinogen Dipstick 1.0 mg/dL (0.2 mg/dL) Urine Leukocyte Esterase Large (NEG) Urine RBC 0 /HPF (0-2) Urine WBC Tntc /HPF (0-4) Urine Squamous Epithelial Cells Many /LPF Urine Bacteria Many /HPF (0-FEW) Urine Hyaline Casts Many /HPF Urine Mucus Marked /LPF White Blood Count 5.7 x10^3/uL (4.0-11.0) Red Blood Count 3.91 x10^6/uL (3.50-5.40) Hemoglobin 7.5 g/dL (12.0-15.5) Hematocrit 25.5 % (36.0-47.0) Mean Corpuscular Volume 65 fL (79-100) Mean Corpuscular Hemoglobin 19 pg (25-35) Mean Corpuscular Hemoglobin Concent 30 g/dL (31-37) Red Cell Distribution Width 19.8 % (11.5-14.5) Platelet Count 247 x10^3/uL (140-400) Neutrophils (%) (Auto) 54 % (31-73) Lymphocytes (%) (Auto) 36 % (24-48) Monocytes (%) (Auto) 8 % (0-9) Eosinophils (%) (Auto) 2 % (0-3) Basophils (%) (Auto) 1 % (0-3) Neutrophils # (Auto) 3.1 x10^3/uL (1.8-7.7) Lymphocytes # (Auto) 2.0 x10^3/uL (1.0-4.8) Monocytes # (Auto) 0.4 x10^3/uL (0.0-1.1) Eosinophils # (Auto) 0.1 x10^3/uL (0.0-0.7) Basophils # (Auto) 0.1 x10^3/uL (0.0-0.2) Platelet Estimate Adequate (ADEQUATE) Polychromasia Slight Hypochromasia Marked Anisocytosis Slight Microcytosis Marked Macrocytosis Slight Prothrombin Time 12.5 SEC (11.7-14.0) Prothromb Time International Ratio 1.0 (0.8-1.1) Activated Partial Thromboplast Time 25 SEC (24-38) Sodium Level 142 mmol/L (136-145) Potassium Level 3.4 mmol/L (3.5-5.1) Chloride Level 101 mmol/L (98-107) Carbon Dioxide Level 25 mmol/L (21-32) Anion Gap 16 (6-14) Blood Urea Nitrogen 7 mg/dL (7-20) Creatinine 0.7 mg/dL (0.6-1.0) Estimated GFR (Cockcroft-Gault) 88.2 BUN/Creatinine Ratio 10 (6-20) Glucose Level 94 mg/dL (70-99) Calcium Level 9.3 mg/dL (8.5-10.1) Ferritin 30 ng/mL (8-252) Total Bilirubin 0.4 mg/dL (0.2-1.0) Aspartate Amino Transf (AST/SGOT) 92 U/L (15-37) Alanine Aminotransferase (ALT/SGPT) 83 U/L (14-59) Alkaline Phosphatase 140 U/L (46-116) C-Reactive Protein, Quantitative 3.6 mg/L (0-3.3) Total Protein 7.2 g/dL (6.4-8.2) Albumin 3.4 g/dL (3.4-5.0) Albumin/Globulin Ratio 0.9 (1.0-1.7) Hepatitis A IgM Antibody Nonreactive (Nonreactive) Hepatitis B Surface Antigen Nonreactive (Nonreactive) Hepatitis B Core IgM Antibody Nonreactive (Nonreactive) Hepatitis C IgG Antibody Nonreactive (Nonreactive) SARS-CoV-2 Antigen (Rapid) Negative (NEGATIVE) Influenza Type A Antigen Negative (NEGATIVE) Influenza Type B Antigen Negative (NEGATIVE) Test 05/28/20 04:00 05/29/20 06:05 White Blood Count 4.9 x10^3/uL (4.0-11.0) 3.4 x10^3/uL (4.0-11.0) Red Blood Count 3.23 x10^6/uL (3.50-5.40) 3.65 x10^6/uL (3.50-5.40) Hemoglobin 6.4 g/dL (12.0-15.5) 7.6 g/dL (12.0-15.5) Hematocrit 21.3 % (36.0-47.0) 25.5 % (36.0-47.0) Mean Corpuscular Volume 66 fL (79-100) 70 fL (79-100) Mean Corpuscular Hemoglobin 20 pg (25-35) 21 pg (25-35) Mean Corpuscular Hemoglobin Concent 30 g/dL (31-37) 30 g/dL (31-37) Red Cell Distribution Width 19.9 % (11.5-14.5) 22.9 % (11.5-14.5) Platelet Count 190 x10^3/uL (140-400) 181 x10^3/uL (140-400) Neutrophils (%) (Auto) 54 % (31-73) 52 % (31-73) Lymphocytes (%) (Auto) 35 % (24-48) 34 % (24-48) Monocytes (%) (Auto) 8 % (0-9) 9 % (0-9) Eosinophils (%) (Auto) 1 % (0-3) 4 % (0-3) Basophils (%) (Auto) 1 % (0-3) 1 % (0-3) Neutrophils # (Auto) 2.7 x10^3/uL (1.8-7.7) 1.8 x10^3/uL (1.8-7.7) Lymphocytes # (Auto) 1.7 x10^3/uL (1.0-4.8) 1.2 x10^3/uL (1.0-4.8) Monocytes # (Auto) 0.4 x10^3/uL (0.0-1.1) 0.3 x10^3/uL (0.0-1.1) Eosinophils # (Auto) 0.1 x10^3/uL (0.0-0.7) 0.1 x10^3/uL (0.0-0.7) Basophils # (Auto) 0.0 x10^3/uL (0.0-0.2) 0.0 x10^3/uL (0.0-0.2) Sodium Level 139 mmol/L (136-145) 139 mmol/L (136-145) Potassium Level 2.8 mmol/L (3.5-5.1) 3.2 mmol/L (3.5-5.1) Chloride Level 100 mmol/L (98-107) 106 mmol/L (98-107) Carbon Dioxide Level 26 mmol/L (21-32) 24 mmol/L (21-32) Anion Gap 13 (6-14) 9 (6-14) Blood Urea Nitrogen 7 mg/dL (7-20) 7 mg/dL (7-20) Creatinine 0.5 mg/dL (0.6-1.0) 0.5 mg/dL (0.6-1.0) Estimated GFR (Cockcroft-Gault) 130.1 130.1 Glucose Level 80 mg/dL (70-99) 101 mg/dL (70-99) Calcium Level 8.3 mg/dL (8.5-10.1) 8.4 mg/dL (8.5-10.1) Phosphorus Level 3.6 mg/dL (2.6-4.7) Magnesium Level 1.5 mg/dL (1.8-2.4) 25-Hydroxy Vitamin D Total 19.8 ng/mL (30-100) Laboratory Tests Test 05/29/20 06:05 White Blood Count 3.4 x10^3/uL (4.0-11.0) Red Blood Count 3.65 x10^6/uL (3.50-5.40) Hemoglobin 7.6 g/dL (12.0-15.5) Hematocrit 25.5 % (36.0-47.0) Mean Corpuscular Volume 70 fL (79-100) Mean Corpuscular Hemoglobin 21 pg (25-35) Mean Corpuscular Hemoglobin Concent 30 g/dL (31-37) Red Cell Distribution Width 22.9 % (11.5-14.5) Platelet Count 181 x10^3/uL (140-400) Neutrophils (%) (Auto) 52 % (31-73) Lymphocytes (%) (Auto) 34 % (24-48) Monocytes (%) (Auto) 9 % (0-9) Eosinophils (%) (Auto) 4 % (0-3) Basophils (%) (Auto) 1 % (0-3) Neutrophils # (Auto) 1.8 x10^3/uL (1.8-7.7) Lymphocytes # (Auto) 1.2 x10^3/uL (1.0-4.8) Monocytes # (Auto) 0.3 x10^3/uL (0.0-1.1) Eosinophils # (Auto) 0.1 x10^3/uL (0.0-0.7) Basophils # (Auto) 0.0 x10^3/uL (0.0-0.2) Sodium Level 139 mmol/L (136-145) Potassium Level 3.2 mmol/L (3.5-5.1) Chloride Level 106 mmol/L (98-107) Carbon Dioxide Level 24 mmol/L (21-32) Anion Gap 9 (6-14) Blood Urea Nitrogen 7 mg/dL (7-20) Creatinine 0.5 mg/dL (0.6-1.0) Estimated GFR (Cockcroft-Gault) 130.1 Glucose Level 101 mg/dL (70-99) Calcium Level 8.4 mg/dL (8.5-10.1) Brief Hospital Course Ms. Álvarez is a 49 old female who presented with acute stable left anterior thigh hematoma after fall at home, and acute UTI. Consultations were placed to general surgery, recommending heating pads and early ambulation. She was treated with Rocephin x3 doses for her acute urinary tract infection. She was given potassium replacement. Patient was stable for discharge home. Discharge Information Condition at Discharge: Improved Follow Up: Weeks Disposition/Orders: D/C to Home Scheduled Amlodipine Besylate (Amlodipine Besylate) 10 Mg Tablet, 10 MG PO DAILY, (Reported) Entered as Reported by: NASEEM DEMARCO on 03/05/182213 Last Action: HELD on 05/27/202003 by FELIPE LOPEZ MD Calcium Carbonate/Vitamin D3 (Calcium 600 + Vit D 200 Tablet) 1 Each Tablet, 1 EACH PO TID for SUPPLEMENT, (Reported) Entered as Reported by: CLINTON ADAMES on 07/17/181333 Cholecalciferol (Vitamin D3) (Vitamin D) 10,000 Unit Capsule, 10,000 UNIT PO 3X/WEEK for SUPPLEMENT, (Reported) MWF Entered as Reported by: CLINTON ADAMES on 07/17/181338 Last Action: Edited on 05/28/20 0157 by ITZEL QUINTERO Furosemide (Lasix) 40 Mg Tablet, 40 MG PO DAILY, (Reported) Entered as Reported by: NASEEM DEMARCO on 03/05/182213 Last Action: HELD on 05/27/202003 by FELIPE LOPEZ MD Iron Polysaccharides Complex (Poly-Iron) 150 Mg Capsule, 150 MG PO DAILY for TANIYA for 30 Days, #30 Ref 5 Prescribed by: ZARI SIM MD on 05/05/19 1130 Last Action: HELD on 05/27/202003 by FELIPE LOPEZ MD Spironolactone (Aldactone) 25 Mg Tablet, 1 TAB PO DAILY for HYPERTENSION, #90 Ref 1 (Reported) Entered as Reported by: CLINTON ADAMES on 07/17/18 1327 Last Action: HELD on 05/27/202003 by FELIPE LOPEZ MD Vitamin B Complex (Vitamin B Complex) 1 Each Capsule, 1 EACH PO DAILY for SUPPLEMENT, (Reported) Entered as Reported by: CLINTON ADAMES on 07/17/18 133 Scheduled PRN Cyclobenzaprine Hcl (Cyclobenzaprine Hcl) 10 Mg Tablet, 1 TAB PO PRN TID PRN for MUSCLE SPASMS for 10 Days, #30 Prescribed by: ZARI SIM MD on 05/05/19 1127 Last Action: Continued on 05/27/202003 by EFLIPE LOPEZ MD Ibuprofen (Ibuprofen) 800 Mg Tablet, 800 MG PO PRN Q6HRS PRN for INFLAMMATION, (Reported) Entered as Reported by: ITZEL QUINTERO on 05/28/20200 Last Action: New Order on 05/28/20200 by ITZEL QUINTERO Metoclopramide Hcl (Reglan) 10 Mg Tablet, 1 TAB PO PRN TID PRN for NAUSEA for 30 Days, Ref 0 (Reported) before food and bedtime Entered as Reported by: ITZEL QUINTERO on 05/28/20200 Last Action: New Order on 05/28/20200 by ITZEL QUINTERO Zolpidem Tartrate (Ambien) 5 Mg Tablet, 5 MG PO PRN QHS PRN for INSOMNIA, Ref 0 (Reported) Entered as Reported by: ITZEL QUINTERO on 05/28/20730 Last Action: New Order on 05/28/20730 by ITZEL QUINTERO Justicifation of Admission Dx: Justifications for Admission: Justification of Admission Dx: Yes (Hypokalemia, fall) SAVAGE ORELLANA MD May 29, 2020 12:20
[2020-05-29] MEDS ORDERED: POTASSIUM CHLORIDE 20 MEQ TABLET.ER. PO ONE (12:30)
--- NOTE | 2020-05-29 13:20 | NUR ---
Discharged patient home. Discharge instructions given. PIV and heart monitor removed. Escorted patient off unit into a private vehicle.
--- NOTE | 2020-05-29 13:21 | NUR ---
SS following for discharge planning. SS reviewed pt chart and discussed with pt RN. Pt is from home with spouse and is currently on room air. Discharge order on the chart for home with self care.
== END 2020-05-29 13:30 | disposition home or self-care (01) | DRG 605 ==
LOC: ER 11:33 → ED HOLD 19:07 → 2 NORTH 05-28 00:15
PROVIDERS: ADMIT Internal Medicine; ATTEND Internal Medicine
PROC: 30233N1 Transfusion of Nonautologous Red Blood Cells into Peripheral Vein, Percutaneous Approach (ICD-10-PCS; principal; 2020-05-28)
DX: S70.12XA Contusion of left thigh, initial encounter (principal); N39.0 Urinary tract infection, site not specified; Z68.41 Body mass index [BMI] 40.0-44.9, adult; S30.1XXA Contusion of abdominal wall, initial encounter; D50.9 Iron deficiency anemia, unspecified; E66.01 Morbid (severe) obesity due to excess calories; E87.6 Hypokalemia; I10 Essential (primary) hypertension; K76.0 Fatty (change of) liver, not elsewhere classified; W01.198A Fall on same level from slipping, tripping and stumbling with subsequent striking against other object, initial encounter; Y92.009 Unspecified place in unspecified non-institutional (private) residence as the place of occurrence of the external cause; Z20.828 Contact with and (suspected) exposure to other viral communicable diseases; Z82.49 Family history of ischemic heart disease and other diseases of the circulatory system; Z90.710 Acquired absence of both cervix and uterus; Z90.49 Acquired absence of other specified parts of digestive tract; Z91.81 History of falling; Z98.84 Bariatric surgery status; Z88.8 Allergy status to other drugs, medicaments and biological substances; Z91.030 Bee allergy status
CPT/HCPCS: 36415; 36430; 71045; 75635; 80048; 80053; 81001; 82306; 82728; 83735; 84100; 85025; 85610; 85730; 86140; 86705; 86709; 86803; 86850; 86900; 86901; 86920; 87086; 87340; 87426; 87804; 90471; 90686; 96361; 96374; 96375; J0696; J1650; J2270; J2405; J3010; J3411; J3490; J7030; P9016; Q9967; U0003; 99285-25; G0378

== ENCOUNTER → 2020-06-08 | Outpatient (CLI) | payer BC ==
[2020-05-29 12:10] VITALS: BP 155/75
[~2020-06-08] MED LIST changes: +IBUP-1060 PO; +METO10TA81 PO; +ZOLP5TAB PO
[2020-06-08 16:13] LABS: HEMATOCRIT 29.7 % (36.0-47.0); HEMOGLOBIN 9.1 g/dL (12.0-15.5); RED BLOOD COUNT 4.19 x10^6/uL (3.50-5.40); RED CELL DISTRIBUTION WIDTH 25.8 % (11.5-14.5); WHITE BLOOD COUNT 5.7 x10^3/uL (4.0-11.0)
[2020-06-08 16:30] LABS: CALCIUM 9.2 mg/dL (8.5-10.1); CREATININE 0.7 mg/dL (0.6-1.0); GFR 88.2; POTASSIUM 3.4 mmol/L (3.5-5.1)
== END ==
LOC: LAB 15:55
PROVIDERS: ATTEND Family Medicine
DX: E87.6 Hypokalemia (principal); S30.1XXA Contusion of abdominal wall, initial encounter; X58.XXXA Exposure to other specified factors, initial encounter; Y93.89 Activity, other specified; Y92.89 Other specified places as the place of occurrence of the external cause; Y99.8 Other external cause status
CPT/HCPCS: 36415; 80048; 85027

== ENCOUNTER 2021-01-28 12:44 | Emergency (ER) | payer BC ==
[~2021-01-28] VITALS: Ht 165.1 cm; Wt 102.0 kg
[2021-01-28] MEDS ORDERED: HYDROcodone/APAP 5/325MG 1 TAB TABLET PO ONE (13:15)
[2021-01-28] MEDS ORDERED: ONDANSETRON PF 4 MG/2 ML VIAL. IV ONE (13:30)
[2021-01-28] MEDS ORDERED: IV NORMAL SALINE 1000ML BAG 1,000 ML IV ONE (13:30)
[2021-01-28] MEDS ORDERED: MORPHINE SULFATE 4 MG/ML INJ. IV ONE (13:30)
[2021-01-28 13:32] LABS: BASO # 0.1 x10^3/uL (0.0-0.2); BASO % 1 % (0-3); EOS % 1 % (0-3); HEMATOCRIT 34.8 % (36.0-47.0); HEMOGLOBIN 10.6 g/dL (12.0-15.5); LYMPH # 0.8 x10^3/uL (1.0-4.8); LYMPH % 13 % (24-48); MEAN CORPUSCULAR HEMOGLOBIN 23 pg (25-35); MEAN CORPUSCULAR HGB CONC 31 g/dL (31-37); MEAN CORPUSCULAR VOLUME 75 fL (79-100); MONO # 0.5 x10^3/uL (0.0-1.1); MONO % 8 % (0-9); NEUT # 5.3 x10^3/uL (1.8-7.7); NEUT % 78 % (31-73); PLATELET COUNT 382 x10^3/uL (140-400); RED BLOOD COUNT 4.62 x10^6/uL (3.50-5.40); RED CELL DISTRIBUTION WIDTH 22.8 % (11.5-14.5); WHITE BLOOD COUNT 6.8 x10^3/uL (4.0-11.0)
[2021-01-28 13:40] LABS: CREATININE 0.5 mg/dL (0.6-1.0); GFR 129.6
[2021-01-28 13:46] LABS: ALBUMIN 3.5 g/dL (3.4-5.0); ALBUMIN/GLOBULIN RATIO 0.9 (1.0-1.7); MAGNESIUM 1.8 mg/dL (1.8-2.4); TOTAL BILIRUBIN 0.5 mg/dL (0.2-1.0); TOTAL PROTEIN 7.4 g/dL (6.4-8.2)
[2021-01-28 13:52] LABS: PLT ESTIMATE ADEQUATE (ADEQUATE)
[2021-01-28 13:54] LABS: ANISOCYTOSIS MOD; HYPOCHROMIA SLIGHT; POLYCHROMASIA SLIGHT
[2021-01-28 13:56] LABS: MICROCYTOSIS MOD
--- NOTE | 2021-01-28 13:57 | RAD ---
EXAMINATION: Right hip, chest, right elbow and right shoulder radiographs. Radiology VIEWS: Single view of the pelvis, lateral view of the right hip, single view of the chest, 2 views of the right shoulder and 3 views of the right elbow. COMPARISON: CT dated 05/27/2020 shoulder radiograph dated 07/22/2019 INDICATION:50 years, Female, right hip, right shoulder and right elbow pain, status post trauma. Shor tness of breath. FINDINGS: CHEST: Normal cardiomediastinal silhouette. No focal consolidation, pleural effusion or pneumothorax. Calcified granulomas in the right lung. No acute osseous process. Right shoulder: No acute fracture, dislocation or subluxation. Fixation hardware in the right proxima l humerus. No evidence of hardware failure. No bone erosion or periosteal reaction. No soft tissue sw elling. Right elbow: No acute fracture, dislocation or subluxation. No bone erosion or periosteal reaction. N o soft tissue swelling or joint effusion. Right hip: No acute fracture, dislocation or subluxation. No bone erosion or periosteal reaction. No soft tissue swelling. IMPRESSION: 1. No acute osseous process in the right hip, right shoulder or right elbow. 2. No acute cardiopulmonary process. Electronically signed by: Debby Rosario MD (01/28/2021 1:55 PM) [id number]
--- NOTE | 2021-01-28 15:21 | ED.ADGEN ---
Past Medical History Past Medical History: Hypertension Past Surgical History: Appendectomy, Cholecystectomy, Gastric Bypass, Hysterectomy Additional Past Surgical Histo: RIGHT SHOULDER FX REPAIR Smoking Status: Former Smoker Alcohol Use: Occasionally Drug Use: None General Adult EDM: Chief Complaint: MECHANICAL FALL HPI: HPI: Patient is a 50 year old female who presents emergency department with concerns of right shoulder and right hip pain after accidentally rolling out of her bed this morning and onto the floor. Patient states she landed on her right arm. She states she hit her head on the ground as well but denies any headache, vision changes, dizziness, nausea, vomiting, or difficulty staying awake. Patient states she has noticed recently she has been more short of breath than usual, she reports a history of anemia and is concerned that her hemoglobin is too low. She denies any bloody stools or bleeding conditions. Patient denies any fever, chest pain, palpitations, dysuria, hematuria, increased urinary frequency, abdominal pain, or diarrhea. Patient states in the mornings she usually wakes up nauseated but that nausea goes away after a short period of time. Patient states that since the fall she has had numbness in her first through third digits of her right hand. She states the last time she had this was after she had had rotator cuff surgery. She currently rates her pain a 6 out of 10 on the pain scale, she denies any alleviating factors the pain is worse with movement of her right arm. Review of Systems: Review of Systems: Complete ROS is negative unless otherwise noted in HPI. Current Medications: Current Medications Medications (Trade) Dose Ordered Sig/Ulysses Start Time Stop Time Status Last Admin Dose Admin Acetaminophen/ Hydrocodone Bitart (Lortab 5/325) 1 tab 1X ONCE 01/28/21 13:15 01/28/21 13:21 DC Amlodipine Besylate (Norvasc) 10 mg 1X STAT 01/28/21 13:35 01/28/21 13:36 DC 01/28/21 13:56 10 MG Morphine Sulfate (Morphine Sulfate) 4 mg 1X ONCE 01/28/21 13:30 01/28/21 13:31 DC 01/28/21 13:57 4 MG Ondansetron HCl (Zofran) 4 mg 1X ONCE 01/28/21 13:30 01/28/21 13:31 DC 01/28/21 13:56 4 MG Sodium Chloride 1,000 ml @ 1,000 mls/hr 1X ONCE 01/28/21 13:30 01/28/21 14:29 DC 01/28/21 13:55 1,000 MLS/HR Allergies: Allergies: Allergies Coded Allergies Type Severity Reaction Last Updated Verified bee venom protein (honey bee) Allergy Intermediate 07/22/18 No lisinopril Allergy Intermediate 07/22/18 Yes meperidine Allergy Intermediate 07/22/18 Yes Physical Exam: PE: See Above Constitutional: Well developed, well nourished, no acute distress, non-toxic appearance, obese. [] HENT: Normocephalic, atraumatic, bilateral external ears normal, nose normal. [] Eyes: PERRLA, EOMI, conjunctiva normal, no discharge. [] Neck: Normal range of motion, nontender, supple, no stridor. [] Cardiovascular:Heart rate regular tachycardic rhythm Lungs & Thorax: Respirations even and unlabored, no retractions, no respiratory distress Abdomen: soft, no palpable masses, nontender to palpation Skin: Warm, dry, no rash, no abrasions; erythema to the right forearm and right elbow, patient states this is from trying to pull herself up with a dresser drawer Extremities: Right shoulder: Diffuse tenderness to palpation, ROM limited due to pain, sensation intact, cap refill less than 2 seconds, no cyanosis, ROM intact, no edema Right elbow: Nontender to palpation, ROM intact, sensation intact, cap refill less than 2 seconds, no cyanosis, no obvious deformity, no edema Right hip: Lateral tenderness to palpation, no crepitus, no obvious deformity, sensation intact, no shortening or external rotation, ROM intact, no edema [] Neurologic: Alert and oriented X 3, no focal deficits noted. [] Psychologic: Affect normal, judgement normal, mood normal. [] Current Patient Data: Labs: Laboratory Tests Test 01/28/21 13:10 White Blood Count 6.8 x10^3/uL (4.0-11.0) Red Blood Count 4.62 x10^6/uL (3.50-5.40) Hemoglobin 10.6 g/dL (12.0-15.5) L Hematocrit 34.8 % (36.0-47.0) L Mean Corpuscular Volume 75 fL (79-100) L Mean Corpuscular Hemoglobin 23 pg (25-35) L Mean Corpuscular Hemoglobin Concent 31 g/dL (31-37) Red Cell Distribution Width 22.8 % (11.5-14.5) H Platelet Count 382 x10^3/uL (140-400) Neutrophils (%) (Auto) 78 % (31-73) H Lymphocytes (%) (Auto) 13 % (24-48) L Monocytes (%) (Auto) 8 % (0-9) Eosinophils (%) (Auto) 1 % (0-3) Basophils (%) (Auto) 1 % (0-3) Neutrophils # (Auto) 5.3 x10^3/uL (1.8-7.7) Lymphocytes # (Auto) 0.8 x10^3/uL (1.0-4.8) L Monocytes # (Auto) 0.5 x10^3/uL (0.0-1.1) Eosinophils # (Auto) 0.0 x10^3/uL (0.0-0.7) Basophils # (Auto) 0.1 x10^3/uL (0.0-0.2) Platelet Estimate Adequate (ADEQUATE) Polychromasia Slight Hypochromasia Slight Anisocytosis Mod Microcytosis Mod Sodium Level 137 mmol/L (136-145) Potassium Level 5.0 mmol/L (3.5-5.1) Chloride Level 100 mmol/L (98-107) Carbon Dioxide Level 21 mmol/L (21-32) Anion Gap 16 (6-14) H Blood Urea Nitrogen 5 mg/dL (7-20) L Creatinine 0.5 mg/dL (0.6-1.0) L Estimated GFR (Cockcroft-Gault) 129.6 BUN/Creatinine Ratio 10 (6-20) Glucose Level 99 mg/dL (70-99) Calcium Level 9.0 mg/dL (8.5-10.1) Magnesium Level 1.8 mg/dL (1.8-2.4) Total Bilirubin 0.5 mg/dL (0.2-1.0) Aspartate Amino Transferase (AST) 314 U/L (15-37) H Alanine Aminotransferase (ALT) 96 U/L (14-59) H Alkaline Phosphatase 149 U/L (46-116) H Troponin I Quantitative < 0.017 ng/mL (0.000-0.055) ZW-Pwc-[id number]-Type Natriuretic Peptide 81 pg/mL (0-124) Total Protein 7.4 g/dL (6.4-8.2) Albumin 3.5 g/dL (3.4-5.0) Albumin/Globulin Ratio 0.9 (1.0-1.7) L Laboratory Tests 01/28/21 13:10 Laboratory Tests 01/28/21 13:10 Vital Signs: Vital Signs Date Time Temp Pulse Resp B/P (MAP) Pulse Ox O2 Delivery O2 Flow Rate FiO2 01/28/21 13:57 16 97 Room Air 01/28/21 13:56 76 172/108 01/28/21 12:50 98.4 98.4 EKG: EK-sinus tachycardia rate 107, no STEMI, read by Dr. Prajapati [] Heart Score: C/O Chest Pain: No Radiology/Procedures: Radiology/Procedures: PROCEDURE: CHEST AP ONLY EXAMINATION: Right hip, chest, right elbow and right shoulder radiographs. Radiology VIEWS: Single view of the pelvis, lateral view of the right hip, single view of the chest, 2 views of the right shoulder and 3 views of the right elbow. COMPARISON: CT dated 05/27/2020 shoulder radiograph dated 07/22/2019 INDICATION:50 years, Female, right hip, right shoulder and right elbow pain, status post trauma. Shortness of breath. FINDINGS: CHEST: Normal cardiomediastinal silhouette. No focal consolidation, pleural effusion or pneumothorax. Calcified granulomas in the right lung. No acute osseo us process. Right shoulder: No acute fracture, dislocation or subluxation. Fixation hardware in the right proximal humerus. No evidence of hardware failure. No bone erosion or periosteal reaction. No soft tissue swelling. Right elbow: No acute fracture, dislocation or subluxation. No bone erosion or periosteal reaction. No soft tissue swelling or joint effusion. Right hip: No acute fracture, dislocation or subluxation. No bone erosion or periosteal reaction. No soft tissue swelling. IMPRESSION: 1. No acute osseous process in the right hip, right shoulder or right elbow. 2. No acute cardiopulmonary process. Electronically signed by: Debby Rosario MD (01/28/2021 1:55 PM) [id number] [] Course & Med Decision Making: Course & Med Decision Making Pertinent Labs and Imaging studies reviewed. (See chart for details) Patient is a 50-year-old female presented to the emergency department for evaluation after a fall this morning. X-rays of the patient's right shoulder, chest, and right hip were negative for any acute fractures or findings. EKG revealed no acute findings. CBC revealed a hemoglobin of 10.6, hematocrit of 34.8 this is higher than the patient's historical hemoglobins in the last year CMP revealed elevated AST of 314, ALT of 96, alk phos of 149, bilirubin was not elevated, troponin is not elevated CMP is otherwise unremarkable. I discussed the radiology reports and lab results with the patient. Patient became tearful when I discussed the elevated liver enzymes. She admitted to drinking alcohol frequently, states she drinks more than she should. I offered the patient inpatient treatment for alcoholism, she declined the services. I discussed patient's labs with Dr. Schofield who agreed that the elevated liver enzymes are due to alcohol consumption. Will give patient resources for alcohol treatment in the community. Patient was given a liter of normal saline, 10 mg of amlodipine, 4 mg of Zofran, and 4 mg of morphine in the emergency department she reported feeling better medications. I encouraged the patient to take her medications as prescribed follow-up with her primary care doctor this week, return to the ER if symptoms worsen. Patient verbalized an understanding of home care, medications, follow-up, and return to ED instructions and was in agreement with the plan of care. [] Dragon Disclaimer: Dragon Disclaimer: This electronic medical record was generated, in whole or in part, using a voice recognition dictation system. Departure Departure Impression: Primary Impression: Fall from bed, initial encounter Additional Impressions: Elevated liver enzymes Acute pain of right shoulder Acute right hip pain Referrals: ARVIN GONG MD (PCP) Patient Instructions: Fall Prevention and Home Safety, [id number], Hip Pain, Liver Panel, Shoulder Pain, [id number] Additional Instructions: You may take Tylenol or ibuprofen as needed for pain. Wear the sling that was placed as needed for discomfort. Recommend application of ice, elevation, and rest of affected extremities. Follow-up with your orthopedic surgeon, Dr. Judge for reevaluation this week if symptoms persist. The following resources are available for alcohol addiction in the community: [facility]: [address] [place] [address] [facility]: [address] [place] [address] [facility] phone [phone] or [phone] fax [phone] [facility] [place] - [id number] [place] [address] [address] Follow-up with your primary care doctor this week about your elevated liver enzymes. Please return to the ER if your symptoms worsen or fever develops. Problem Qualifiers VINITA ANNE APRN Jan 28, 2021 15:21
--- NOTE | 2021-01-28 15:37 | EKG ---
[facility] [address] [place] [address] Test Date: 2021-01-28 Test Time: 13:35:26 Pat Name: HARJEET BOWLES Department: Room: Gender: [employer]: : 1970 Requested By: VINITA ANNE Order Number: [id number] Reading MD: Measurements Intervals [place] Rate: 107 P: -1 WI: 152 QRS: 3 QRSD: 80 T: 9 QT: 362 QTc: 489 Interpretive Statements SINUS TACHYCARDIA QRS(T) CONTOUR ABNORMALITY CONSIDER ANTEROLATERAL MYOCARDIAL DAMAGE POSSIBLY ABNORMAL ECG RI6.01 No previous ECG available for comparison
[2021-01-28 15:51] VITALS: BP 172/91
== END 2021-01-28 16:15 | disposition home or self-care (01) ==
LOC: ER 12:44
DX: M25.551 Pain in right hip (principal); G89.11 Acute pain due to trauma; R74.8 Abnormal levels of other serum enzymes; M25.511 Pain in right shoulder; M25.521 Pain in right elbow; R07.89 Other chest pain; I10 Essential (primary) hypertension; Z87.891 Personal history of nicotine dependence; W06.XXXA Fall from bed, initial encounter; Y93.89 Activity, other specified; Y92.89 Other specified places as the place of occurrence of the external cause; Y99.8 Other external cause status
CPT/HCPCS: 36415; 71045; 73030; 73080; 73502; 80053; 83735; 83880; 84484; 85025; 93005; 96361; 96374; 96375; 99285; J2270; J2405; J7030